=== PATIENT | female | born 1960 | race Caucasian/White ===

== ENCOUNTER 2023-08-06 11:44 | Inpatient (IN) | payer MEDICARE, OTHER, SELFPAY ==
[2023-08-06] VITALS (12 sets, daily range): BP systolic 91–141; BP diastolic 32–90; BMI 44.9
--- NOTE | 2023-08-06 10:54 | W.PN.CARDCBS ---
Today's Communication / Plan
-
[facility] today
echo
Impression / Plan
-
This is the H&P summary.
Full H&P scanned into chart.
PCP: Juliana Alonso NP
CDY: Malik Cardenas,
HPI: This is a 62 y/o white female, PMH sig for CAD, NSTEMI 02/2021 with complex kissing balloons/ALFREDO x2 from distal LM into LAD and LCx with Impella support. At the time, she had residual 45% prox RCA stenosis, iFR negative and medically managed.
Other history includes HTN, HLD, Asthma/COPD, ALFA/CPAP non compliant, prior DVT, Lupus, RA, Morbid obesity, Anglican.
Presented to [facility] ER with acute onset 10/10 chest pressure radiating to back, associated w/nausea. EMS was called and EKG had significant abnormalities that resolved when chest pain improved. HS troponin 115, CK 87, MB 8.8 and rising. She is on
chronic aspirin and brilinta, and got doses of each this morning.
Transferred for [facility] today.
Echo 01/04/23- nml LVSF, EF 59%, mild CLVH, mild MR, mild , PASP 25 (no sig change from Echo in 2020)
IMPRESSION:
NSTEMI
CAD w/remote FL (2009- no cath)
FL w/LM-LAD/LCx Kissing balloon/ALFREDO x2 w/Impella support (02/07/2021)
Residual CAD in RCA- medically managed
Mild Aortic Stenosis
HTN
HLD
Steroid induced DM
Asthma/COPD
ALFA/CPAP non compliant
Prior DVT
SLE/RA, steroid dependent
R abdominal mass (possibly from retained surgical sponge during R THR), on chronic antibiotics
Buttock abscess w/wound debridement/reconstruction (2012)
R THR w/revisions x3
L THR
Morbid Obesity
Anglican
PLAN:
CAD/NSTEMI
LHC today
currently taking DAPT w/asa, brilinta- last dose this morning
intol BB d/t chronic severe asthma- continue diltiazem 120/d
pt is not surgical candidate d/t Anglican kim
trend troponin/CK to peak
repeat echo
cardiac rehab
followup w/ Dr. Cardenas
HLD- check lipid profile
continue atorvastatin 80/daily
HTN- monitor trends on current meds
DM- steroid induced per pt
check HgbA1C, weekly trulicity
SLE/RA- continue daily prednisone
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
Subjective
Date of Service: August 06, 2023
Physical Exam
Physical Exam
VS:140/74- 86 NSR- 16- 98% RA
AAOx3, MAEE 5/5
RRR S1 S2 no murmurs, distant HS
CTA bilat, decreased throughout
soft obese abd, + bs
bilat extremities w/palpable distal pulses, trace edema
poor adia's right radial
[2023-08-06] MEDS: NSS 313 ML IV (12:11)
[2023-08-06 13:27] LABS: ACT-LR - POC 216 Seconds (116-155)
[2023-08-06 13:45] LABS: ACT-LR - POC 205 Seconds (116-155)
[2023-08-06 13:53] LABS: ACT-LR - POC 240 Seconds (116-155)
[2023-08-06 13:56] LABS: Troponin I 0.429 ng/ml
[2023-08-06 14:06] LABS: ACT-LR - POC 221 Seconds (116-155)
--- NOTE | 2023-08-06 14:17 | ITS.CL.CATH ---
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
Cardiac Catheterization
Procedure Report:
LEFT HEART CATHETERIZATION
Date of Procedure: August 06, 2023
Referring: [facility]
PROCEDURES:
1. Left heart catheterization with coronary and single-plane left ventriculography
2. Hemodynamic assessment of the left main-circumflex using a Empire Omni wire with the iFR serially measuring below the ischemic threshold.
INDICATION: This is a 62-year-old Bahai female with a very complex past medical history. She is diabetes, hypertensive, and has a history of systemic lupus erythematosus as well as rheumatoid arthritis. She has a prior history of a
DVT. She is on chronic prednisone for her rheumatologic issues and reportedly had been intolerant to steroid sparing therapies including etanercept, infliximab, and hydroxychloroquine. She is on chronic antibiotic suppressive therapy with
cephalexin for possible infected hip joint; although the details of this are quite unclear. She underwent coronary angiography on 02/04/2021 in the setting of an acute coronary syndrome and was found to have critical distal left main stenosis,
ostial LAD stenosis, and ostial circumflex stenosis as well as a 50-55% stenosis in the proximal RCA with a borderline iFR measuring 0.91. She was seen and evaluated by CT surgery and was not felt to be an operative candidate given the multitude of
medical issues. She returned to the catheterization laboratory on 02/07/2021 for an Impella assisted coronary intervention and double barrel stenting of the distal LM-LAD and distal LM-LCx with 3.0x18 mm Xience stents in each vessel. She has been
maintained on dual antiplatelet therapy since that time. She states that her breathing improved and she had been feeling well until last evening. She had been watching the [employer] and suddenly became nauseated and went to the bathroom. She
began vomiting and then developed chest tightness asking her son to call 911. She was comfortable by the time she reached [facility]. Her troponin was very mildly elevated 0.115 ng/mL and is now referred for coronary angiography.
ACCESS: Poor right radial pulse and left radial pulse. The right ulnar artery appears to be a large-caliber vessel and was utilized for access using ultrasound guidance and placement of a 6 Czech sheath
HEMODYNAMICS : (mmHg)
AO (s/d) : 165/75
LV (s/d) : 173/14
LVEDP : 23
AORTIC VALVE:
Mean pullback gradient: 14 mmHg
CORONARY FINDINGS
DOMINANCE: Right
LEFT MAIN: Ventricularization with engagement of the left main. 50% distal left main stenosis in cranial views not well-appreciated in caudal views
LEFT ANTERIOR DESCENDING: The LAD arises normally from the left main and runs in the anterior interventricular groove. The LAD arises normally from the left main. There is a stent from the distal left main to the proximal LAD with JAPANESE caudal
images suggestive of a 50-60% ostial stenosis.
CIRCUMFLEX: There is a stent from the distal left main extending to the proximal circumflex. The iFR with an Omni wire positioned in the mid circumflex serially measured as well below the ischemic threshold at 0.80, 0.82, and 0.82 with the guide
catheter disengaged from the left main ostia. The Omni wire was withdrawn to the ostium of the left main where the Pd/Pa completely normalized measuring 1.0 confirming no baseline drift and suggesting significant left main atherosclerotic disease
RIGHT CORONARY ARTERY: The right coronary artery is a moderate caliber dominant vessel with a 40-50% proximal stenosis. The remainder of the RCA has minor irregularities. The PDA has only minor irregularities with no focal obstructive stenosis.
VENTRICULOGRAPHY: Left ventriculography was performed in an JAY projection. The digital single-plane left ventricular ejection fraction is visually estimated greater than 75% with a hyperdynamic left ventricle. Heavy mitral annular calcification
is appreciated
HEMODYNAMIC ASSESSMENT OF THE LEFT MAIN-CIRCUMFLEX WITH A VOLCANO OMNI WIRE: Intravenous heparin was administered and the ACT was monitored throughout the procedure. A 5 Czech JL 3.5 guide catheter was advanced to the proximal ascending thoracic
aorta. A Empire Omni wire was advanced to the guide catheter tip and normalized to the guide catheter pressure. The Omni wire was then retracted to the guide catheter in the guide catheter engaged the origin of the left main. The Omni wire was
advanced to the mid circumflex and the guide catheter was disengaged from the left main origin. The iFR serially measured below the ischemic threshold at 0.80, 0.82, and 0.82. The Omni wire was slowly withdrawn to the left main with a mild step up
noted in the mid left main and complete normalization to the guide catheter pressure noted at the ostium of the left main where the Pd/Pa measured 1.0 while the guide was disengaged from the left main origin. I briefly attempted to pass the Omni
wire to the LAD but could not pass the OMNI wire
RADIATION SUMMARY: Fluoro Time (min): 11.0, Dose (mGy): 806.4, DAP (Gy.cm2) : 55.9
Closure Device: TR band
CONCLUSIONS
1. There is pressure dampening upon engagement of a 6 Czech diagnostic JL guide. Some views suggest a hazy plaque in the superior aspect of the left main as well as distal left main tapering. The exact nature of this was difficult to assess
given the double barrel distal left main stenosis extending to the origin of the circumflex and LAD. There is no reasonable option for left main ultrasound. However, the iFR in the mid circumflex is clearly in the ischemic range measuring 0.80,
0.82, 0.82 with a set up / normalization at the ostium of the left main
RECOMMENDATIONS
1. There are clearly no good percutaneous treatment options given existing double barrel LM-LAD and LM-LCx stents.
2. We will consult CT surgery
3. Trend troponin
Copy to: Dr. Malik Cardenas
--- NOTE | 2023-08-06 15:08 | PTCARENOTE ---
Rec'd pt this shift awake and alert post cath. Pt with Rt ulner external pressure device in place with 15ml air. Pulse ox 98% on hand. hand warm but pt c/o hand feeling numb. 3ml air let out, pt states a little better. site intact, no bleeding or
hematoma noted. NSR on monitor, RA, lungs clear. VS done as per protocol. See worklist for VS/I and O and assessments.
--- NOTE | 2023-08-06 15:29 | CONSULT.CT ---
Addendum entered and electronically signed by Brad Kaplan MD 08/06/23 18:05:
I saw and examined the patient.
The PA's note was reviewed and I agree with the note.
Comment:
It was my pleasure to evaluate Mrs. Elayne Rodriguez. She is a very pleasant 62-year-old woman with a VERY complex medical history including morbid obesity (BMI 42.7), diabetes, SLE, RA, chronic steroid use, hypertension, DVT, osteoarthritis status
post right hip replacement x 3 and left hip replacement x 1 with questionable unresected right hip mass/infection not amenable to resection prompting chronic antibiotic therapy, hyperlipidemia, asthma/COPD, and ALFA w/ CPAP noncompliance.
She was initially evaluated after presenting with an ACS back in January 2021 and deemed not to be an operative candidate at that time. She was taken to the cardiac catheterization laboratory on 02/07/2021 and underwent Impella assisted coronary
intervention with double barrel stenting of her distal left main into LAD and left main into left circumflex with a 3.0 x 18 mm Xience stent in each vessel. She has been maintained on DAPT since that time and had been doing relatively well.
On 08/05/2023, she was watching the [place] game at home and had an episode of acute shortness of breath, nausea/vomiting, and chest tightness. She was transported via EMS to [facility]. Her troponin was noted to be mildly elevated. She was referred for
cardiac catheterization. She was transferred to , and on 08/06/2023 underwent repeat left heart catheterization.
This demonstrated 50 to 60% ostial stenosis within the distal left main to proximal LAD stent and IFR positive disease within the stent from the left main into the left circumflex (0.80, 0.82, 0.82). Her RCA had a 40 to 50% proximal stenosis, but
otherwise only minor luminal irregular irregularities. This was largely unchanged from her cath in 2020. Left ventriculography demonstrated a hyperdynamic left ventricle with an LVEF greater than 75% along with heavy mitral annular calcifications.
Echocardiography demonstrated an LVEF of 59% with mild concentric LVH, normal right ventricular size and function, mild aortic stenosis (mean gradient 8 mmHg), mild mitral regurgitation with mild MAC, and trace tricuspid regurgitation with PASP of
25 mmHg.
The patient is a Mandaen and refuses transfusion. She requested transfer to [facility] given the need for surgical revascularization and their bloodless surgery program. On questioning, although she was adamant that she
would not accept blood products, she was agreeable to autotransfusion/Cell Saver.
I spoke with my surgical colleague at [place], Dr. Matt Razo, who has graciously offered to assist in the care of this patient. Transfer arrangements are underway. She will require additional time for preoperative assessment/evaluations and
to allow for her DAPT therapy (Brilinta) to washout with potential operation next week. Arrangements are currently underway for transfer with a target transfer date of tomorrow 08/07/2023. This was discussed with the patient, and she is agreeable.
I also spoke with both her defence intelligence analyst (Dr. Malik Cardenas) and burnisher (Dr. Cecilio Palacios), both of whom are agreeable with planned transfer.
Please call with any questions or concerns.
Thank for the opportunity to participate in the care of this patient.
Brad Kaplan MD
[phone]
Original Note:
Consultation
-
Date/Time Consultation Requested: 08/06/23
Date/Time Consultation Performed: 08/06/23
Requesting Provider: Dr. Palacios
Performing Provider: Brice brothers
Reason for Consultation: Cabg eval. (plan for Cabg at bloodless surgery program)
Patient History
Physicians
Family Physician: Juliana Alonso NP
Outpatient Docent Coordinator: Dr Cardenas
History of Present Illness
Patient is a 62-year-old white female with a significant past medical history. She initially presented to [facility] last night after developing substernal chest pressure and palpitations after eating dinner. She developed nausea and
vomiting. She also became diaphoretic and vomited x 2. Patient reports the pain was similar to her previous MA. Patient presented to [facility] and upon arrival was pain-free. She ruled in for NSTEMI with serial enzymes studies.
She was transferred to [facility] on 08/06/2023 for left heart cath. Heart cath again showed multivessel coronary artery disease and cardiothoracic surgery was consulted. Surgical revascularization was recommended but patient would like to
be transferred to a bloodless surgical program. She is on chronic aspirin and Brilinta and received both this morning 08/06/2023.
Echo from 01/04/2023 showed ejection fraction of 59%. Study also showed mild MR, mild and PA pressure of 25.
Plan for transfer to bloodless surgery program [facility] for CABG.
Past Medical History
Past Medical History: Angina, CAD, JACKMAN, HTN, Hypercholesterolemia, NIDDM, MA, ALFA and SOB
Past Surgical History
Past Surgical History: Abdominal, Orthopedic, PCI/Stent and Other ()
Family History
Mother: Still Living
Father: Still Living
Family Medical History: CAD and Hypertension
Social History
Alcohol: None
Drug: None
Tobacco: Non-Smoker
Personal:
Living: With Family
Employment: Disabled
Covid Vaccination History:
Received COVID-vaccine and COVID booster
Allergies
Allergy/AdvReac Type Severity Reaction Status Date / Time
codeine Allergy Hives Verified 08/06/23 12:31
etanercept [From Enbrel] Allergy Hives Verified 08/06/23 12:31
hydroxychloroquine Allergy Hives Verified 08/06/23 12:31
[From Plaquenil]
infliximab [From Remicade] Allergy heart Verified 08/06/23 12:31
stopped
metformin Allergy Nausea / Verified 08/06/23 12:31
Vomiting
oxycodone HCl Allergy seizures Verified 02/02/21 11:15
[From OxyContin]
Penicillins Allergy Hives Verified 08/06/23 12:31
'gold shots' Allergy Hives Uncoded 08/06/23 12:31
Home Medications
Medication Instructions Recorded Confirmed Type
cholecalciferol (vitamin D3) 50 2,000 unit PO DAILY 12/21/16 08/06/23 History
mcg (2,000 unit) tablet
atorvastatin 40 mg tablet 40 mg PO QPM 02/02/21 08/06/23 History
cephalexin 500 mg capsule 500 mg PO BID 02/02/21 08/06/23 History
dapagliflozin propanediol 10 mg 10 mg PO DAILY 02/02/21 08/06/23 History
tablet (Farxiga)
glimepiride 2 mg tablet 2 mg PO DAILY 02/02/21 08/06/23 History
icosapent ethyl 1 gram capsule 2 gm PO BID 02/02/21 08/06/23 History
(Vascepa)
montelukast 10 mg tablet 10 mg PO QPM 02/02/21 08/06/23 History
acetaminophen 325 mg tablet 650 mg PO Q4HPRN PRN Moderate pain. 02/09/21 08/06/23 Rx
aspirin 81 mg chewable tablet 81 mg PO DAILY 02/09/21 08/06/23 Rx
diltiazem HCl 120 mg 120 mg PO DAILY #30 caps 02/09/21 08/06/23 Rx
capsule,extended release 24 hr
pantoprazole 40 mg tablet,delayed 40 mg PO DAILY #30 tabs 02/09/21 08/06/23 Rx
release
ticagrelor 90 mg tablet (Brilinta) 90 mg PO BID #60 tabs 02/09/21 08/06/23 Rx
dulaglutide 0.75 mg/0.5 mL 0.75 mg SC QWEEK 08/06/23 08/06/23 History
subcutaneous pen injector
(Trulicity)
ezetimibe 10 mg tablet (Zetia) 10 mg PO QPM 08/06/23 08/06/23 History
lisinopril 10 mg tablet 10 mg PO QPM 08/06/23 08/06/23 History
mycophenolate mofetil 500 mg tablet 1,500 mg PO BID 08/06/23 08/06/23 History
prednisone 10 mg tablet 10 mg PO DAILY 08/06/23 08/06/23 History
Review of Systems
-
History Source: Patient
General: Reports Weight Loss and Fatigue
HEENT: Reports No Symptoms
Respiratory: Reports SOB and JACKMAN
Cardiac: Reports Chest Pain, CAD, Palpitations, Nausea and Vomiting
Abdomen/GI: Reports Nausea and Vomiting
: Reports Other (Kidney stones, history of UTI)
Musculoskeletal: Reports Joint Pain
Skin: Reports No Symptoms
Neurological: Reports Headaches (Occasional migraines)
Vascular: Reports Claudication (Uses wheeled walker)
Physical Exam
Vital Signs
Temp route: Oral 08/06/23 11:54
Pulse 86 08/06/23 15:00
Rhythm: Normal sinus rhythm 08/06/23 15:11
Resp Rate 18 08/06/23 14:41
Blood pressure 98/61 08/06/23 15:00
Blood pressure extremity used: Right upper arm 08/06/23 11:54
Position: Lying 08/06/23 14:41
MAP (cuff-Dc Monitor) 68 08/06/23 15:00
SaO2 98 08/06/23 15:00
Oxygen Mode of Delivery Room air 08/06/23 14:42
Can the patient verbally communicate their pain? Yes 08/06/23 15:11
Pain scale ratin 08/06/23 15:11
Actual Weight 229 lb 11.547 oz 08/06/23 11:52
Body Mass Index (BMI) 0.0 08/06/23 12:14
Labs
Troponin I 0.429 ng/ml H* 08/06/23 13:14
Exam
General: Well Developed, Well Nourished, No Apparent Distress and Comfortable
HEENT: Normocephalic, Anicteric and Atraumatic
Neck: Trachea Midline
Respiratory: Clear
Cardiac: Regular Rhythm
GI: Soft, Non Tender, Non Distended and Normal Bowel Sounds
Rectal: Deferred by Provider
Skin: Warm and Dry
Neuro: Awake, Alert, Oriented and AO x 3
Extremities: Pulses (Distal pulses intact bilaterally, dorsalis pedis pulse +2 bilaterally, feet cool dry, no open sores or ulcerations on feet,)
Lymph: No Lymphadenopathy
Psych: Calm
Assessment / Plan
-
Assessment:
NSTEMI
CAD with remote MA 2009
MA with left main stenting with Impella support 02-07-2021
Mild aortic stenosis
Hyperlipidemia
Hypertension
Steroid-induced diabetes mellitus
Asthma
ALFA/CPAP noncompliant
History of DVT provoked after hip surgery
Chronic immunosuppression for rheumatoid arthritis and lupus with prednisone and CellCept since she was a teenager
Nephrolithiasis
History of buttock abscess on chronic antibiotics history of wound debridement and reconstruction 2012
Right total hip replacement with revisions x 3
Left total hip replacement
Morbid obesity
Mandaen
Moderate persistent asthma with history of pneumonia, history of asthmatic bronchitis requiring intubation in 2012 and multiple hospitalization for asthma exacerbations
Chronic iron deficiency anemia
Severe fatty liver disease
Migraines
History of MRSA sepsis
Osteoarthritis/degenerative joint disease status post multiple hip replacements
Plan:
Preoperative studies will be ordered
All studies to be reviewed by attending cardiothoracic surgeons and transfer will be arranged to a bloodless surgery program.
[2023-08-06] MEDS: TYLENOL 650 MG PO (15:37)
[2023-08-06 15:52] LABS: Glucose - Point of Care 102 mg/dl (70-99)
--- NOTE | 2023-08-06 16:41 | PTCARENOTE ---
pt denies CP, denies sob. labs sent. Pt OOB up in chair for dinner, tolerated well.
[2023-08-06 16:42] LABS: Hematocrit 39.5 % (37.0-47.0); Hemoglobin 12.5 g/dL (12.0-16.0); Mean Corp Hgb Conc. 31.6 g/dL (33.0-37.0); Mean Corpuscular Hgb 27.1 pg (27.0-31.0); Mean Corpuscular Volume 85.7 fL (81.0-99.0); Mean Platelet Volume 10.4 fL (7.4-10.4); Platelet Count 302 10^3/uL (130-400); Red Blood Cell Count 4.61 10^6/uL (4.20-5.40); Red Cell Dist. Width 16.3 % (11.5-14.5); White Blood Cell Count 14.3 10^3/uL (4.8-10.8)
--- NOTE | 2023-08-06 16:52 | CM ---
Chart reviewed. Patient is independent of ADLS, lives with her son in a [address], [address], ambulates with a rollator. Patient currently with no discharge needs. CM to follow
[2023-08-06 17:18] LABS: Total CK 66 U/L (30-135)
[2023-08-06 17:39] LABS: CKMB 2.9 ng/ml (0.0-2.4)
[2023-08-06] MEDS: ZESTRIL 10 MG PO (17:47)
[2023-08-06] MEDS: LIPITOR 40 MG PO (17:47)
[2023-08-06] MEDS: SINGULAIR 10 MG PO (17:48)
[2023-08-06] MEDS: ZETIA 10 MG PO (17:48)
[2023-08-06] MEDS: VENTOLIN NEBULES 2.5 MG INH (18:19)
--- NOTE | 2023-08-06 18:27 | PTCARENOTE ---
Pt sent for CT scan. at 1800, TR band removed. dsg intact.
[2023-08-06] MEDS: KEFLEX 500 MG PO (20:11)
[2023-08-06 22:03] LABS: Glucose - Point of Care 82 mg/dl (70-99)
--- NOTE | 2023-08-07 02:05 | PTCARENOTE ---
Right ulnar dressing intact w/ palpable pulses. Patient educated about activity restrictions, and verbalized understanding. Tele remains SR, VSS, and sating 93-98% RA. Denies any chest pain. Aware of POC, call hoffmann within reach.
[2023-08-07 04:47] VITALS: BP 148/65
[2023-08-07 05:10] LABS: Hematocrit 35.5 % (37.0-47.0); Hemoglobin 11.5 g/dL (12.0-16.0); Mean Corp Hgb Conc. 32.4 g/dL (33.0-37.0); Mean Corpuscular Volume 83.3 fL (81.0-99.0); Mean Platelet Volume 10.1 fL (7.4-10.4); Platelet Count 274 10^3/uL (130-400); Red Blood Cell Count 4.26 10^6/uL (4.20-5.40); Red Cell Dist. Width 16.2 % (11.5-14.5); White Blood Cell Count 11.4 10^3/uL (4.8-10.8)
[2023-08-07 05:27] LABS: Blood Urea Nitrogen 15 mg/dl (7-17); Calcium 8.7 mg/dl (8.4-10.2); Carbon Dioxide 27 mmol/L (22-30); Chloride 103 mmol/L (98-107); Estimated Creatinine Clearance 84 ml/min; Glucose 87 mg/dl (70-99); HDL Cholesterol 33 mg/dl; LDL Cholesterol, Calculated 36 mg/dl; Potassium 4.1 mmol/L (3.5-5.1); Sodium 138 mmol/L (135-145); Total Cholesterol 116 mg/dl (50-199); Triglyceride 237 mg/dl (10-149); Very Low Density Lipoprotein 47 mg/dl (0-30); eGFR > 60.00
[2023-08-07 05:45] LABS: Troponin I 0.242 ng/ml
[2023-08-07 05:59] LABS: Total CK 55 U/L (30-135)
[2023-08-07 07:24] VITALS: BP 117/62
[2023-08-07 07:32] LABS: Glucose - Point of Care 85 mg/dl (70-99)
[2023-08-07 08:05] VITALS: BMI 42.5
[2023-08-07] MEDS: FARXIGA 10 MG PO (09:24)
[2023-08-07] MEDS: LOW STRENGTH ASPIRIN 81 MG PO (09:24)
[2023-08-07] MEDS: AMARYL 2 MG PO (09:24)
[2023-08-07] MEDS: KEFLEX 500 MG PO (09:25)
[2023-08-07] MEDS: CARDIZEM CD 120 MG PO (09:25)
[2023-08-07] MEDS: PROTONIX 40 MG PO (09:25)
[2023-08-07] MEDS: DELTASONE 10 MG PO (09:25)
--- NOTE | 2023-08-07 09:50 | W.PN.CARDCBS ---
Addendum entered and electronically signed by Caroline Merlos MD 08/07/23 12:08:
I saw and examined the patient.
The Playroom Attendant's note was reviewed and I agree with the note.
Comment: Overall patient is doing well and does not offer any complaints. She is walked the halls and does not have any recurrent chest discomfort or shortness of breath.
Vital signs are stable. Exam notable for a morbidly obese female in no acute distress, ANO x 3, regular rate, normal S1 and S2, no evidence of hematoma or bruit at recent cath access site, lungs are clear to auscultation bilaterally, abdomen is
obese but otherwise soft, nontender, nondistended with active bowel sounds, warm extremities without significant edema.
Lab work reviewed with mild hemoglobin drop, less than 2 g.
Plan:
1. Awaiting Brilinta washout and awaiting bed availability at [facility] for transfer for CABG per patient's request.
2. Continue management of current acute coronary syndrome. Encourage patient to let us know if she has any recurrent cardiac symptoms.
Caroline Merlos MD, [facility], [facility]
Original Note:
Today's Communication / Plan
-
Recheck H&H at noon
Transfer to [facility] when bed available
Pain free
Impression / Plan
-
PCP: Juliana Alonso NP
CDY: Malik Cardenas DO
IMPRESSION:
Transfer from [facility] for NSTEMI 08/06/23
CAD
remote OH without cath 2009
critical left main and ostial LAD/circumflex disease s/p successful complex two ALFREDO placed to the distal left main into the LAD and circumflex with Impella support 02/07/21
cath with hazy plaque in the superior aspect LM and distal LM tapering (exact nature of this was difficult to assess given the double barrel distal left main stenosis extending to the origin of the circumflex and LAD), iFR in mid Circ in the
ischemic range measuring 0.80, 0.82, 0.82 with a set up / normalization at the ostium of the left main 08/06/23
Mild Aortic Stenosis, mean gradient by cath 14 mmHg 08/06/23
HTN
HLD
Steroid induced DM
Asthma/COPD
ALFA/CPAP non compliant
Prior DVT
SLE/RA, steroid dependent
R THR w/revisions x3
L THR
Morbid Obesity
Shinto
Echo 01/04/23: nml LVEF, EF 59%, mild CLVH, mild MR, mild , PASP 25 (no sig change from Echo in 2020)
PLAN:
-Initial Troponin at upon transfer from [facility] was 0.429 on 08/06/23 and then 0.242 on 08/07/23. No chest pain.
-Remains on usual outpatient dose of aspirin 81 mg daily. Last dose of Brilinta 90 mg BID was 08/06/23 AM.
-Hgb was 12.5 on admission and 11.5 on 08/07/23. Check H&H at noon. HD stable.
-Echo ordered and then cancelled with plan for transfer to [facility], but EF was 75% by v-gram 08/06/23
-Patient with h/o HTN and her usual doses of Cardizem CD 120 mg daily and lisinopril 10 mg daily have been continued.
-LDL 36 and outpatient doses of atorvastatin 40 mg daily and Zetia 10 mg daily have been continued. Patient also takes Vascepa 2 gram BID
-HgbA1c pending. Outpatient doses of Farxiga 10 mg daily and glimepiride 2 mg daily have been continued. Patient was also taking Trulicity 0.75 mg SQ weekly as an outpatient.
-Patient with a h/o SLE/RA and takes prednisone 10 mg daily and CellCept 1500 mg BID which have been continued
HPI: This is a 62 y/o white female, PMH sig for CAD, NSTEMI 02/2021 with complex kissing balloons/ALFREDO x2 from distal LM into LAD and LCx with Impella support. At the time, she had residual 45% prox RCA stenosis, iFR negative and medically managed.
Other history includes HTN, HLD, Asthma/COPD, ALFA/CPAP non compliant, prior DVT, Lupus, RA, Morbid obesity, Shinto.
Presented to [facility] ER with acute onset 10/10 chest pressure radiating to back, associated w/nausea. EMS was called and EKG had significant abnormalities that resolved when chest pain improved. HS troponin 115, CK 87, MB 8.8 and rising. She is on
chronic aspirin and Brilinta, and got doses of each this morning.
Transferred for [facility] today.
Progress Note - Director Of Vital Statistics
Subjective
Date of Service: August 07, 2023
She feels well, no chest pain
Objective
Labs:
08/07/23 04:55
08/07/23 04:55
Labs
Hgb 11.5 g/dL (12.0-16.0) L 08/07/23 04:55
Hct 35.5 % (37.0-47.0) L 08/07/23 04:55
Plt Count 274 10^3/uL (130-400) 08/07/23 04:55
Sodium 138 mmol/L (135-145) 08/07/23 04:55
Potassium 4.1 mmol/L (3.5-5.1) 08/07/23 04:55
BUN 15 mg/dl (7-17) 08/07/23 04:55
Creatinine 0.8 mg/dL (0.6-1.0) 08/07/23 04:55
Glucose 87 mg/dl (70-99) 08/07/23 04:55
Troponins
08/06/23 08/07/23
13:14 04:55
Troponin I 0.429 H* 0.242 H*
Vital Signs and I&O:
Vital Signs
Temp Pulse Resp BP Pulse Ox
98.1 F 85 18 117/62 95
08/07/23 08:04 08/07/23 09:25 08/07/23 08:04 08/07/23 09:25 08/07/23 08:04
Vital Signs
Temp Pulse Resp BP Pulse Ox
98.1 F 85 18 117/62 95
08/07/23 08:04 08/07/23 09:25 08/07/23 08:04 08/07/23 09:25 08/07/23 08:04
Intake & Output
08/05/23 08/06/23 08/07/23 08/08/23
06:59 06:59 06:59 06:59
Intake Total 740 / 740
Balance 740 / 740
Physical Exam
Physical Exam
GEN: NAD. AAO x3
HEENT: EOMI, MMM
LUNGS: CTA B/L, no wheezes or rales B/L
CV: Reg, S1/S2, 1/6 syst LSB
ABD: soft, BS+, NT, ND
EXT: Right ulnar artery with minimal ecchymosis. No cyanosis, clubbing, lesions or edema B/L
NEURO: Gross non-focal
SKIN: Warm, pink, dry. No rash.
--- NOTE | 2023-08-07 10:44 | CM ---
Chart reviewed. Patient is waiting for a bed at [facility]. Patient is independent of ADLS, lives with her son in a [address], [address], ambulates with a rollator. Waiting on bed at [facility]. CM to follow
[2023-08-07 12:29] LABS: Glucose - Point of Care 88 mg/dl (70-99)
[2023-08-07 12:58] VITALS: BP 127/74
[2023-08-07 13:59] LABS: Hematocrit 38.8 % (37.0-47.0); Hemoglobin 12.3 g/dL (12.0-16.0)
[2023-08-07 16:18] LABS: Glucose - Point of Care 129 mg/dl (70-99)
[2023-08-07 16:48] VITALS: BP 129/61
--- NOTE | 2023-08-07 17:08 | W.PN.UPDATE ---
Update Note
Progress Note Update
Patient has just been given a bed at [facility]. Into patient's room to update her on room and to get informed consent for transfer. Transfer this evening.
--- NOTE | 2023-08-07 18:09 | TRANSFER ---
Report given to LOVE Koroma at [facility]. Pt to be transferred at 1930, via BLS transport. Pt to go to room 523. Report called to [phone]. Will monitor.
[2023-08-07 19:07] VITALS: BP 135/65
[2023-08-07] MEDS: ZESTRIL 10 MG PO (19:09)
[2023-08-07] MEDS: ZETIA 10 MG PO (19:09)
[2023-08-07] MEDS: SINGULAIR 10 MG PO (19:09)
[2023-08-07] MEDS: LIPITOR 40 MG PO (19:09)
[2023-08-07 20:42] VITALS: BP 119/65
--- NOTE | 2023-08-07 21:26 | PTCARENOTE ---
ALS at bedside, and will transport patient to [facility]. All personal belongings sent w/ patient.
== END 2023-08-07 21:30 | disposition short-term general hospital (02) | DRG 281 ==
LOC: IVU 11:44
PROVIDERS: Clinical Nurse Specialist Acute Care; Nurse Practitioner; Physician Assistant Medical; ADMITTING PHYSICIAN Internal Medicine Interventional Cardiology; CONSULT PHYSICIAN Thoracic Surgery (Cardiothoracic Vascular Surgery)
PROC: 4A023N7 Measurement of Cardiac Sampling and Pressure, Left Heart, Percutaneous Approach (ICD-10-PCS; 2023-08-06)
PROC: B2111ZZ Fluoroscopy of Multiple Coronary Arteries using Low Osmolar Contrast (ICD-10-PCS; 2023-08-06)
PROC: B2151ZZ Fluoroscopy of Left Heart using Low Osmolar Contrast (ICD-10-PCS; 2023-08-06)
DX: I21.4 Non-ST elevation (NSTEMI) myocardial infarction (principal); Z68.41 Body mass index [BMI] 40.0-44.9, adult; E66.01 Morbid (severe) obesity due to excess calories; I10 Essential (primary) hypertension; I25.119 Atherosclerotic heart disease of native coronary artery with unspecified angina pectoris; I25.2 Old myocardial infarction; E09.9 Drug or chemical induced diabetes mellitus without complications; E78.00 Pure hypercholesterolemia, unspecified; M32.9 Systemic lupus erythematosus, unspecified; M06.9 Rheumatoid arthritis, unspecified
CPT/HCPCS: 71250; 80048; 80061; 82550; 82553; 82962; 83036; 84484; 85014; 85018; 85027; 85347; 93005; 93458; 93571; 94060; 94640; C1769; C1894; Q9967

== ENCOUNTER → 2023-11-30 12:15 | Outpatient (REF) | payer MEDICARE, OTHER, SELFPAY | LOC: RAD 12:15 | PROVIDERS: ATTENDING PHYSICIAN Nurse Practitioner Primary Care | DX: M32.10 Systemic lupus erythematosus, organ or system involvement unspecified (principal); Z79.52 Long term (current) use of systemic steroids; S69.92XA Unspecified injury of left wrist, hand and finger(s), initial encounter | CPT/HCPCS: 73140 ==

== ENCOUNTER → 2024-02-04 15:49 | Outpatient (REF) | payer MEDICARE, OTHER, SELFPAY | LOC: RAD 15:49 | PROVIDERS: ATTENDING PHYSICIAN Nurse Practitioner Family; FAMILY PHYSICIAN Nurse Practitioner Primary Care | DX: R05.1 Acute cough (principal); J06.9 Acute upper respiratory infection, unspecified | CPT/HCPCS: 71046 ==

== ENCOUNTER → 2024-04-15 10:25 | Outpatient (REF) | payer MEDICARE, OTHER, SELFPAY | LOC: HWRAD 10:25 | PROVIDERS: ATTENDING PHYSICIAN Nurse Practitioner Family; FAMILY PHYSICIAN Nurse Practitioner Primary Care | DX: R05.3 Chronic cough (principal) | CPT/HCPCS: 71046 ==

== ENCOUNTER 2024-07-02 17:20 | Inpatient (IN) | payer MEDICARE, OTHER, SELFPAY ==
[2024-07-02] VITALS (27 sets, daily range): BP systolic 62–155; BP diastolic 25–125; BMI 44.1
[2024-07-02] MEDS: ZOFRAN 4 MG PO (11:49)
[2024-07-02 12:17] LABS: ALT (SGPT) 16 U/L (0-35); AST (SGOT) 21 U/L (14-36); Albumin 3.7 g/dl (3.5-5.0); Alkaline Phosphatase 74 U/L (38-126); Blood Urea Nitrogen 21 mg/dl (7-17); Carbon Dioxide 25 mmol/L (22-30); Chloride 96 mmol/L (98-107); Glucose 198 mg/dl (70-99); Potassium 4.9 mmol/L (3.5-5.1); Sodium 133 mmol/L (135-145); Total Bilirubin 3.2 mg/dl (0.2-1.3); eGFR 33.91
[2024-07-02 12:23] LABS: % Basophils 0.4 % (0-2); % Immature Granulocytes 0.8 % (0-0.5); % Lymphocytes 8.9 % (20.5-51.1); % Monocytes 8.8 % (1.7-9.3); % Neutrophils 81.1 % (42.2-75.2); Absolute Basophils 0.1 10^3/uL (0-0.2); Absolute Immature Granulocytes 0.2 10^3/uL (0-0.05); Absolute Neutrophils 18.2 10^3/uL (1.4-6.5); Hematocrit 39.4 % (37.0-47.0); Hemoglobin 12.2 g/dL (12.0-16.0); Mean Corpuscular Hgb 26.7 pg (27.0-31.0); Mean Corpuscular Volume 86.2 fL (81.0-99.0); Mean Platelet Volume 10.5 fL (7.4-10.4); Nucleated Red Blood Cells % 0 %; Platelet Count 296 10^3/uL (130-400); Red Blood Cell Count 4.57 10^6/uL (4.20-5.40); Red Cell Dist. Width 17.2 % (11.5-14.5); White Blood Cell Count 22.4 10^3/uL (4.8-10.8)
[2024-07-02 12:41] LABS: Troponin I 0.146 ng/ml
--- NOTE | 2024-07-02 13:14 | ED.GENMED ---
History of Present Illness
General
Chief Complaint: Abdominal Symptoms
Source: patient and family (Son and mother)
Time Seen by Provider: 07/02/24 13:07
History of Present Illness
History of Present Illness:
This patient is a 63-year-old female presents emergency department with stating she just has not felt well since last night. It began with pain 'on my side', and she points to the right mid to lower quadrant associated with wheezing. She then
noted vomiting and nonbloody diarrhea. She notes 'rattling' in her chest particular with a cough which is nonproductive. She denies chest pain or pressure and states that today symptoms are completely uncharacteristic of when she had a prior IA.
She does note mild dyspnea and chills. She denies sick contacts. She denies back pain, urinary symptoms, headache. She does have overall fatigue. Patient was noted to be mildly hypoxic here in nasal cannula was applied. Of note, patient had a
bypass earlier this year.
Past History
Past History
ED Past Medical History: Asthma, CAD, HTN, Other (Lupus and rheumatoid arthritis, DVT) and Other (Kidney stones, prior history of pneumonia)
ED Past Surgical History: and Orthopedic (R hip replaced x 3 L hip replaced x 1)
Social History
Tobacco: Non-smoker
Alcohol: Occasional
Drug: None
Living: with family (lives with son)
Employment: Disabled
Family History
Family History: Other (n/c)
Phy Exam
Physical Exam
Physical Exam:
GENERAL: Alert , appears uncomfortable, obese
EYE: pupils equal and reactive, no photophobia
NECK: Supple, no significant adenopathy.
ENT: o/p clr, mm slightly dry
CARDIAC: Regular rate and rhythm, tachycardic.
LUNGS: Equal breath sounds bilaterally, no acute respiratory distress, diffuse wheezing, no rales or rhonchi, no obvious cough
ABDOMEN: Soft, mild right lower quadrant tenderness, no r/g
NEUROLOGICAL: Alert and oriented, no focal neuro deficits
SKIN: Warm and dry, skin intact.
MUSCULOSKELETAL: No edema, well perfused.
PSYCH: Normal and appropriate interaction.
Course
Orders/Labs/Results
Orders:
Orders
07/02/24 11:32
Electrocardiogram (*1) Urgent
Reason for Study: Chest Pain
07/02/24 11:33
EKG- Treatment ONCE
07/02/24 11:47
Ondansetron HCl [Zofran] 4 mg .ROUTE .STK-MED ONE
07/02/24 11:49
Ondansetron HCl [Zofran] 4 mg PO NOW STA
07/02/24 11:50
Complete Blood Count/With Diff Urgent
Comprehensive Metabolic Panel Urgent
Magnesium Urgent
Phosphorus Urgent
Troponin I Urgent
07/02/24 13:18
CT Abd/Pel (IV only)-DH only Urgent
Comment:
Reason For Exam: RLQ PAIN, N/V/D
Ipratropium/Albuterol Sulfate [Duoneb] 3 ml INH R NOW STA
07/02/24 13:20
CR Chest - 2 Views Urgent
Comment:
Reason For Exam: HYPOXIA, WHEEZING
07/02/24 13:40
D-Dimer Urgent
Lactic Acid Urgent
Lipase Urgent
Urinalysis Reflex To Culture Urgent
Date Specimen was Collected: 07/02/24
Time Specimen was Collected: 13:37
Urine Microscopic Reflex Cult Urgent
Blood Culture Q30M
RAHAT Source: Blood/Venous
Specimen Description:
Blood Culture Q30M
RAHAT Source: Blood/Venous
Specimen Description:
07/02/24 15:34
Echo 2D MMode Color/Doppler Urgent
Reason for Study: pericardial effusion
07/02/24 15:57
Piperacillin/Tazo 4.5 Gram [Zosyn] 4.5 gram in 100 ml IV NOW
07/02/24 16:00
Norovirus by PCR Urgent
RAHAT Source: Feces/Stool
Specimen Description:
Date Specimen was Collected: 07/04/24
Time Specimen was Collected: 00:17
STOOL [C difficile Antigen & Toxins] Urgent
RAHAT Source: Feces/Stool
Specimen Description:
Date Specimen was Collected: 07/04/24
Time Specimen was Collected: 00:17
07/02/24 16:12
Influenza A+B Rapid Molecular Urgent
RAHAT Source: Nasal Swab
Specimen Description:
07/02/24 16:13
COVID-19 Antigen Urgent
Source: Nasal Swab
Stool Culture Urgent
RAHAT Source: Feces/Stool
Specimen Description:
Date Specimen was Collected: 07/04/24
Time Specimen was Collected: 00:18
07/02/24 16:32
0.9% Sodium Chloride 500 ml [Nss] 500 ml IV BOLUS
07/02/24 16:33
0.9% Sodium Chloride 1000 ml [Nss] 2,000 ml IV BOLUS
07/02/24 16:36
Vancomycin [Vancocin] 2,000 mg 0.9% Sodium Chloride 500 ml [Nss] 500 ml IV NOW
07/02/24 16:56
Hydrocortisone Sod Succinate [Solu-Cortef] 100 mg IV NOW STA
07/02/24 17:03
Senior Accountant Cytology Routine
Date Specimen was Collected: 07/02/24
Time Specimen was Collected: 17:06
Source: Pericardial Fluid
Clinical Impression: pericardial
07/02/24 17:06
Admit/Transfer Patient As Directed
Co-Sign Provider:
Level of Care: Inpatient admission
Assign to:: ICU
Physician / Group: Shilpa
Diagnosis: Septic Shock, Tamponade
Reason for Hospitalization: IVFs, IV steroids, Pericardiocentesis
Expected length of stay greater than two midnights?: Yes
ELOS- Estimated Length of Stay in days: 3
I certify the patient meets the requirements for IP care: Yes
PRN Pain Medication Management As Directed
May give lesser potent ordered pain med per pt: Yes
preference::
Protocol:: Medication orders for pain may be administered in a
manner that supports deferring to patient preference
when the pt is:
- Requesting an ordered lesser potent pain medication.
Least to most potent pain medications are defined
as: acetaminophen < NSAID < tramadol < opioids
(morphine, oxycodone, hydromorphone).
- Requesting a lesser dose of the same medication IF
ORDERED.
- Requesting a less intrusive route of administration
if both routes are prescribed by the provider (PO <
IV).
07/02/24 17:08
Code Status As Directed
Resuscitation Status: Full Code
Acid Fast Culture & Smear Routine
RAHAT Source: Pericardial Fluid
Specimen Description:
Date Specimen was Collected: 07/02/24
Time Specimen was Collected: 17:05
Body Fluid Cell Count Routine
What is the Body Fluid: pericard
Date Specimen was Collected: 07/02/24
Time Specimen was Collected: 17:05
Body Fluid Glucose Routine
Fluid Source: Other
Other Source: ashia
Date Specimen was Collected: 07/02/24
Time Specimen was Collected: 17:04
Body Fluid Hematocrit Routine
What is the Body Fluid: pericard
Date Specimen was Collected: 07/02/24
Time Specimen was Collected: 17:05
Body Fluid LDH Routine
Fluid Source: Other
Other Source: pericardial
Date Specimen was Collected: 07/02/24
Time Specimen was Collected: 17:04
Body Fluid Protein Routine
Fluid Source: Other
Other Source: periardial
Date Specimen was Collected: 07/02/24
Time Specimen was Collected: 17:04
Fluid Culture with Gram Stain Routine
RAHAT Source: Pericardial Fluid
Specimen Description:
Date Specimen was Collected: 07/02/24
Time Specimen was Collected: 17:05
Fungus Culture Routine
RAHAT Source: Pericardial Fluid
Specimen Description:
Date Specimen was Collected: 07/02/24
Time Specimen was Collected: 17:05
Fungus Smear Routine
RAHAT Source: Pericardial Fluid
Specimen Description:
Date Specimen was Collected: 07/02/24
Time Specimen was Collected: 17:04
07/02/24 17:30
Echo Follow-up Study Routine
Reason for Study: PERICARDIOCENTISIS
07/02/24 18:24
0.9% Sodium Chloride 1000 ml [Nss] 1,000 ml IV 80 mls/hr
Acetaminophen [Tylenol] 650 mg PO Q4HPRN PRN
Atorvastatin [Lipitor] 80 mg PO QPM
Dextrose 50%-Water [Dextrose 50% Syringe] 12.5 grams IV [id number] PRN
Glucagon [GlucaGen] 1 mg IM PRN PRN
Montelukast Sodium [Singulair] 10 mg PO QPM
Vancomycin HCl [Firvanq] 250 mg PO Q6
07/02/24 18:24
CARDIOLOGY CONSULT Routine
Consulting Provider: Casa Blanchard
Was physician already notified: Yes
INFECTIOUS DISEASE CONSULT Routine
Consulting Provider: Luis Pinedo
Was physician already notified: Yes
Commercial Credit Analyst Consult Routine
Consulting Provider: Emilia Bowen
Was physician already notified: Yes
Activity As Directed
Activity Level: Out of Bed- Chair
Bedside Glucose Monitoring As Directed
Frequency: AC&HS
Additional Instructions:: Change to q6h if pt on TPN, tube feeding or not eating
I&O [Intake/ Output] As Directed
Frequency: q12h
Vital Signs As Directed
Frequency: Per unit guidelines
Weight As Directed
Frequency: Daily
DX Deep Vein Thrombosis Video Routine
07/02/24 20:00
Mycophenolate Mofetil 1,000 mg PO BID
07/02/24 20:37
Troponin I Q6H
07/02/24 22:00
Gabapentin [Neurontin] 100 mg PO HS
07/03/24 00:00
Heparin 5,000 units SC Q8
Hydrocortisone Sod Succinate [Solu-Cortef] 50 mg IV Q8
07/03/24 02:50
Complete Blood Count/No Diff IN AM
Glycohemoglobin (HgbA1c) IN AM
Troponin I Q6H
07/03/24 08:00
Ezetimibe [Zetia] 10 mg PO DAILY
Pantoprazole [Protonix] 40 mg PO DAILY
07/03/24 20:00
Cephalexin Monohydrate [Keflex] 500 mg PO BID
Abnormal Lab Results
07/02/24 07/02/24
11:50 13:40
WBC 22.4 H 10^3/uL
(4.8-10.8)
MCH 26.7 L pg
(27.0-31.0)
MCHC 31.0 L g/dL
(33.0-37.0)
RDW 17.2 H %
(11.5-14.5)
MPV 10.5 H fL
(7.4-10.4)
Abs Immat Gran (auto) 0.2 H 10^3/uL
(0-0.05)
Absolute Neuts (auto) 18.2 H 10^3/uL
(1.4-6.5)
Absolute Monos (auto) 2.0 H 10^3/uL
(0.1-0.6)
Immature Gran % 0.8 H %
(0-0.5)
Neutrophils % 81.1 H %
(42.2-75.2)
Lymphocytes % 8.9 L %
(20.5-51.1)
D-Dimer 7.32 H ug/mlFEU
(0.00-0.50)
Sodium 133 L mmol/L
(135-145)
Chloride 96 L mmol/L
(98-107)
BUN 21 H mg/dl
(7-17)
Creatinine 1.7 H mg/dL
(0.6-1.0)
Glucose 198 H mg/dl
(70-99)
Lactic Acid 2.1 H mmol/L
(0.7-2.0)
Total Bilirubin 3.2 H mg/dl
(0.2-1.3)
Troponin I 0.146 H* ng/ml
Total Protein 6.0 L g/dl
(6.3-8.2)
Urine Ketones 1+ A
(Negative)
Urine Bilirubin 1+ A
(Negative)
Leukocyte Esterase Rfl Trace A
(Negative)
Urine Albumin (Reflex) 1+ A
(Neg - Trace)
07/02/24 11:50
07/02/24 11:50
Vital Signs
Initial and Last Documented VS:
Initial Vital Signs
Temp Pulse Resp BP Pulse Ox
98.5 F 109 20 110/67 95
07/02/24 11:38 07/02/24 11:38 07/02/24 11:38 07/02/24 11:38 07/02/24 11:38
Last Documented Vital Signs
Temp Pulse Resp BP Pulse Ox
97.9 F 70 24 138/68 98
07/04/24 08:00 07/04/24 09:10 07/03/24 16:00 07/04/24 09:10 07/04/24 04:28
*Critical Care Note
Total Time (30-74mins, 75-104mins- exclusive of procedures): 40
Update Note
Update Note:
Patient presents to the Emergency Department with ___wheezing nausea vomiting
Number and Complexity of Problems Addressed at the Encounter
� Chronic conditions affecting care:
� Acute Exacerbation and/or Progression of Chronic Illness:
� Differential Diagnosis includes: But not limited to cholecystitis, appendicitis, viral gastroenteritis, pneumonia, etc. etc.
Amount and/or Complexity of Data to be Reviewed and Analyzed
� I performed an independent evaluation of and my interpretation is:
EKG: Read by me, sinus tachycardia, no acute ischemia
CT: Dr Floyd she has a moderate sized pericardial effusion and likely pericarditis. The pericardium is enhancing and a little bit thick. She�s also got a collection along her right iliopsoas which may be a hematoma or might be
related to the right hip arthroplasty
Xrays: read by me, cm..dr floyd Small bilateral pleural effusions with adjacent atelectasis.
Cardiomegaly, likely related to a pericardial effusion seen on same-day CT abdomen pelvis.
Laboratory Studies:leukocytosis with L shift, lactic acid elevation, trop elevation (?demand).
Other:
� Review of other/old records reveals: Discharge summary/consults...pt seen Jul 2023 and tx'd to [facility] for CABG at her request.
� Clinical information was obtained by an independent historian:mother and son at bedside.
� Prescriptions/Medications Considered but not given:
� Further testing considered but not performed:
Risk of Complications and/or Morbidity or Mortality of Patient Management
� Social determinants of health affecting care:
� Discussion with other providers (PCP, Hospitalists, Consultants, etc):
� Escalation of care including admission/observation vs risk of discharge considered: Patient noted to have an elevated troponin here. She does not currently have chest pain or an ECG that would suggest ACS. May be demand
ischemia.
3:28 PM patient having mild hypotension, improved with IV fluids here. Upon my review I suspected a pericardial effusion and confirmed with radiology who states she has a moderate sized pericardial effusion and likely pericarditis. The pericardium
is enhancing and a little bit thick. She�s also got a collection along her right iliopsoas which may be a hematoma or might be related to the right hip arthroplasty. Pt is obviously septic, ?related to effusion vs another source, such as collection
at R iliopsoas. Text/consult to cards (Dr Blanchard) who ordered stat echo and will see pt although does suspect fat pad over actual effuison, also confirms EF wnl and recommends IVf for hypotension, will d/w Hospitalist, begin abx.
Of note, family and pt state that she has a chronic 'mass' near R hip area, on chronic abx (cefadroxil), prior hospitalizations unable to successfully bx. WIll need to compare to today's film.
RN instructed to restart IVF and we wll reassess bp. Dr Strong aware re:admission.
ED Attending Note
-
Portions of this chart may have been created with voice recognition software.� Occasional wrong word or��sound alike� substitutions may have occurred due to the inherent limitations of voice recognition software.
Discharge Plan
Departure
Patient Disposition: Admit
Date of Disposition: 07/02/24
Time of Disposition: 15:52
Admit to doctor: vivian
Presentation/result/management discussed w/ accepting MD/DO: Hospitalist
Condition: Fair
Discharge Problem:
SIRS (systemic inflammatory response syndrome)
Interventions
Interventions:
*Risk Screen - Suicide Last Done: 07/02/24 12:56
*General Assessment Last Done: 07/02/24 12:56
*Neglect/Abuse Screening Last Done: 07/02/24 12:56
ED- Fall Risk Assessment Last Done: 07/02/24 13:00
*ED COVID-19 Vaccine History Last Done: 07/02/24 12:56
*Nursing Disposition Last Done: 07/02/24 17:28
FM-Nrodfw-Rwhxtpadbx Assessment Last Done: 07/02/24 13:00
ED- Cardiac Assessment Last Done: 07/02/24 13:00
ED- Pulmonary Assessment Last Done: 07/02/24 13:00
Discharge Date and Time
Discharge Date/Time: 07/02/24 17:15
[2024-07-02] MEDS: DUONEB 3 ML INH (13:49)
[2024-07-02 14:19] LABS: Lactic Acid 2.1 mmol/L (0.7-2.0); Urine Albumin 1+ (Neg - Trace); Urine Bilirubin 1+ (Negative); Urine Character Clear (Clear); Urine Color Yellow; Urine Glucose Negative (Negative); Urine Ketone 1+ (Negative); Urine Leukocyte Trace (Negative); Urine Nitrite Negative (Negative); Urine Occult Blood Negative (Negative); Urine Urobilinogen Negative (Neg - 1+)
[2024-07-02 14:21] LABS: Lipase 46 U/L (23-300)
[2024-07-02 14:28] LABS: Urine Red Blood Cell 0-2 /HPF (0-2); Urine White Cell 0-2 /HPF (0-5)
[2024-07-02 14:32] LABS: D-Dimer 7.32 ug/mlFEU (0.00-0.50)
--- NOTE | 2024-07-02 15:57 | HPS.HSE ---
Family Physician
-
Family Physician: Frantz Mckeon
Chief Complaint
-
Vomiting and Diarrhea
History of Present Illness
Patient is a 63 y/o female past medical history of CAD s/p CABG in August, hypertension, diabetes, SLE/RA on immunosuppressant and chronic steroids, and chronic antibiotic use for right hip mass/infection who presents with vomiting and diarrhea.
Patient reports overall feeling unwell. She states she developed vomiting and diarrhea last night. She also reports cough and shortness of breath. Upon arrival to the emergency department she was found to be hypotensive with significant
leukocytosis. Additional work-up revealed pericardial effusion with tamponade physiology. Cardiology evaluated patient emergently in the ED and planning for pericardiocentesis this evening. Hospitalist group was asked to evaluate patient for
admission to the hospital.
Medical History
Past Medical History
Past Medical History: Reports Other
Additional Past Medical History:
Coronary Artery Disease s/p Stents and CABG
Diabetes Mellitus, Type II
Essential Hypertension
Hyperlipidemia
Asthma
Systemic Lupus Erythematosus
Rheumatoid Arthritis
Chronic Hip Mass/Infection
DVT
Morbid Obesity
Past Surgical History: Reports Other
Additional Past Surgical History:
CABG
Bilateral Hip Replacements
Section
Social History
Tobacco: Non-smoker
Alcohol: None
Family History
Family History: Not pertinent
Allergies / Home Medications
Allergies reflects when Allergies were last updated in [facility] [employer] [facility].
Home Medications with original date entered in [facility] [employer] [facility]
Allergy/Medication List:
Allergies
Allergy/AdvReac Type Severity Reaction Status Date / Time
codeine Allergy Hives Verified 07/02/24 11:41
etanercept [From Enbrel] Allergy Hives Verified 07/02/24 11:41
hydroxychloroquine Allergy Hives Verified 07/02/24 11:41
[From Plaquenil]
infliximab [From Remicade] Allergy heart Verified 07/02/24 11:41
stopped
metformin Allergy Nausea / Verified 07/02/24 11:41
Vomiting
oxycodone HCl Allergy seizures Verified 07/02/24 11:41
[From OxyContin]
Penicillins Allergy Hives Verified 07/02/24 11:41
'gold shots' Allergy Hives Uncoded 07/02/24 11:41
Home Medications
cholecalciferol (vitamin D3) 50 mcg (2,000 unit) tablet 2,000 unit PO DAILY Supplement 12/21/16
montelukast 10 mg tablet 10 mg PO QPM 02/02/21
aspirin 81 mg chewable tablet 81 mg PO DAILY 02/09/21
pantoprazole 40 mg tablet,delayed release 40 mg PO DAILY #30 tabs 02/09/21
dulaglutide 0.75 mg/0.5 mL subcutaneous pen injector (Trulicity) 0.75 mg SC FR 08/06/23
ezetimibe 10 mg tablet (Zetia) 10 mg PO DAILY 08/06/23
mycophenolate mofetil 500 mg tablet 1,000 mg PO BID 08/06/23
prednisone 10 mg tablet 10 mg PO DAILY 08/06/23
atorvastatin 80 mg tablet 80 mg PO QPM 07/02/24
cefadroxil 500 mg capsule 500 mg PO BID 07/02/24
clopidogrel 75 mg tablet 75 mg PO DAILY 07/02/24
coenzyme Q10 200 mg capsule 200 mg PO DAILY 07/02/24
cyanocobalamin (vitamin B-12) 2,500 mcg tablet 2,500 mcg PO DAILY 07/02/24
folic acid 1 mg tablet 1 mg PO DAILY 07/02/24
gabapentin 100 mg capsule 100 mg PO HS 07/02/24
magnesium oxide 400 mg PO QPM 07/02/24
metoprolol succinate 25 mg tablet,extended release 24 hr 25 mg PO DAILY 07/02/24
therapeutic multivitamin 1 tab PO DAILY 07/02/24
Review of Systems
-
A 12 point ROS was completed and negative except as noted: Yes
Constitutional: Denies Fever
Respiratory: Reports Cough and Trouble Breathing
Cardiac: Denies Chest Pain or Palpitations
Abdomen/GI: Reports Nausea, Vomiting and Diarrhea
Physical Exam
Vital Signs
Vital Signs
Temp Pulse Resp BP Pulse Ox
98.5 F 103 38 80/66 96
07/02/24 11:38 07/02/24 15:37 07/02/24 15:37 07/02/24 15:37 07/02/24 15:37
Physical Exam
General: Well Developed, Well Nourished, Conversant and Morbidly Obese
HEENT: Anicteric, Moist mucous membranes and Oxygen (Nasal Cannula)
Respiratory: Clear and Other (Poor inspiratory effort, Appears short of breath with conversation)
Cardiac: S1/S2, Regular Rhythm and Tachycardia
GI: Soft and Non Tender
Rectal: Deferred by Provider
Musculoskeletal: No Clubbing, No Cyanosis and No Edema
Skin: Warm and Dry
Neuro: Awake, Alert, Oriented and Nonfocal/grossly intact
Psych: Calm
Laboratory Results
-
07/02/24 11:50
07/02/24 11:50
Laboratory Results
Lactic Acid 2.1 mmol/L (0.7-2.0) H 07/02/24 13:40
Total Bilirubin 3.2 mg/dl (0.2-1.3) H 07/02/24 11:50
AST 21 U/L (14-36) 07/02/24 11:50
ALT 16 U/L (0-35) 07/02/24 11:50
Alkaline Phosphatase 74 U/L (38-126) 07/02/24 11:50
Troponin I 0.146 ng/ml H* 07/02/24 11:50
Lipase 46 U/L (23-300) 07/02/24 13:40
Abd/Pelvis CT Scan:
Moderate-sized pericardial effusion with associated pericardial enhancement and mild thickening which is favored to represent acute pericarditis.
Small left and trace right pleural effusions with adjacent bibasilar atelectasis.
There is a heterogeneous collection with internal calcifications extending along the right iliopsoas which measures 7.4 x 6.8 x 12.3 cm which may be related to the right hip arthroplasty, iliopsoas bursitis or represent a hematoma.
Nonobstructing renal calculus measuring up to 8mm on the right.
Data Reviewed
-
CT Scan: Report Reviewed by me
Lab Data: Labs Reviewed by me
Old Records: Reviewed
Impression/Plan
-
Septic Shock - Unclear source of infection, possibly GI source vs infected right iliopsoas collection
-Check stool for C Diff, Norovirus and Stool Culture
-Await blood cultures
-Start empiric oral vancomycin
-Consider IR consult for right iliopsoas collection if no other source of infection
-Consult Infectious Disease
Large Pericardial Effusion with Tamponade Physiology
-Cardiology planning for pericardiocentesis this evening
Elevated Troponin, suspect non-ischemic myocardial injury due to hypotension
-Continue to trend
Acute Kidney Injury, likely to due hypovolemia
-Continue IVFs
-Recheck labs in AM
Coronary Artery Disease s/p PCI (2020) and CABG (2023)
-Continue aspirin and Plavix if OK with interventionalist following pericardiocentesis
Diabetes Mellitus, Type II
-Patient maintained on Trulicity
-Monitor sugars and continue coverage insulin
Essential Hypertension
-Metoprolol on hold due to hypotension
Hyperlipidemia
-Continue atorvastatin and ezetimibe
Asthma, no acute exacerbation
-Continue montelukast
Systemic Lupus Erythematosus / Rheumatoid Arthritis
-Patient currently on stress dose steroids
-Continue mycophenolate
Chronic Hip Mass/Infection
-Continue usual cefadroxil
Morbid Obesity
-Affects all aspects of care
DVT proph:SC Heparin
Code Status: Full Code
[2024-07-02 16:27] LABS: COVID-19 Antigen Negative (Negative)
--- NOTE | 2024-07-02 16:41 | CON.CAR ---
Consultation
Consultation Request
Requesting Provider: Elayne Villalpando
Performing Provider: Santo
Reason for Consultation: SOB, tachycardia, effusion
Medical History
-
Chief Complaint: SOB
History of Present Illness:
Patient is a pleasant 63-year-old female with a past medical history significant for CAD status post two-vessel CABG August 2023 at [facility], mild aortic stenosis, mixed hyperlipidemia, diabetes mellitus type 2, SLE, morbid
obesity, hypertension, obstructive sleep apnea who presents following 1 day history of fevers, chills, shortness of breath, nausea, vomiting, diarrhea. In the emergency department, patient was noted to have a leukocytosis of 22, sinus tachycardia,
elevated D-dimer. Patient underwent CT abdomen pelvis due to abdominal discomfort, diarrhea, nausea, vomiting and was noted to have a moderate-sized pericardial effusion. Stat echocardiogram was performed which demonstrated a large sized
pericardial effusion. In discussion with patient, she reports shortness of breath, cough, nausea, vomiting, abdominal pain, diarrhea. She denies chest pain, palpitations, near-syncope, syncope, edema, or weakness. She reports adherence to all
medications. Patient is a non-smoker, no alcohol, no illicits.
Past Medical History
Past Medical History: Other (See HPI)
Past Surgical History: Other (Buttock abscess with reconstruction and wound debridement 2012, left hip replacement, x 1, white hip replacement revision x 3, cystic mask right hip, PCI and stent to left main/LAD/circumflex 02/2021, CABG x 2
(CUMMINGS-LAD, SVG-OM, 08/2023))
Social History
Tobacco: Non-Smoker
Alcohol: None
Drug: None
Living: With Family
Family History
Family History: Reviewed & Not Pertinent
Allergies / Home Medications
Allergy/AdvReac Type Severity Reaction Status Date / Time
codeine Allergy Hives Verified 07/02/24 11:41
etanercept [From Enbrel] Allergy Hives Verified 07/02/24 11:41
hydroxychloroquine Allergy Hives Verified 07/02/24 11:41
[From Plaquenil]
infliximab [From Remicade] Allergy heart Verified 07/02/24 11:41
stopped
metformin Allergy Nausea / Verified 07/02/24 11:41
Vomiting
oxycodone HCl Allergy seizures Verified 07/02/24 11:41
[From OxyContin]
Penicillins Allergy Hives Verified 07/02/24 11:41
'gold shots' Allergy Hives Uncoded 07/02/24 11:41
�Medication �Instructions �Recorded �Confirmed �Type
cholecalciferol (vitamin D3) 50 2,000 unit PO DAILY Supplement 12/21/16 07/02/24 History
mcg (2,000 unit) tablet
montelukast 10 mg tablet 10 mg PO QPM 02/02/21 07/02/24 History
aspirin 81 mg chewable tablet 81 mg PO DAILY 02/09/21 07/02/24 Rx
pantoprazole 40 mg tablet,delayed 40 mg PO DAILY #30 tabs 02/09/21 07/02/24 Rx
release
dulaglutide 0.75 mg/0.5 mL 0.75 mg SC FR 08/06/23 07/02/24 History
subcutaneous pen injector
(Trulicity)
ezetimibe 10 mg tablet (Zetia) 10 mg PO DAILY 08/06/23 07/02/24 History
mycophenolate mofetil 500 mg tablet 1,000 mg PO BID 08/06/23 07/02/24 History
prednisone 10 mg tablet 10 mg PO DAILY 08/06/23 07/02/24 History
atorvastatin 80 mg tablet 80 mg PO QPM 07/02/24 07/02/24 History
cefadroxil 500 mg capsule 500 mg PO BID 07/02/24 07/02/24 History
clopidogrel 75 mg tablet 75 mg PO DAILY 07/02/24 07/02/24 History
coenzyme Q10 200 mg capsule 200 mg PO DAILY 07/02/24 07/02/24 History
cyanocobalamin (vitamin B-12) 2,500 mcg PO DAILY 07/02/24 07/02/24 History
2,500 mcg tablet
folic acid 1 mg tablet 1 mg PO DAILY 07/02/24 07/02/24 History
gabapentin 100 mg capsule 100 mg PO HS 07/02/24 07/02/24 History
magnesium oxide 400 mg PO QPM 07/02/24 07/02/24 History
metoprolol succinate 25 mg 25 mg PO DAILY 07/02/24 07/02/24 History
tablet,extended release 24 hr
therapeutic multivitamin 1 tab PO DAILY 07/02/24 07/02/24 History
Review of Systems
-
History Source: Patient and Family
Constitutional: Fever, Fatigue and Chills
EENT: No Symptoms
Respiratory: Cough and Trouble Breathing
Cardiac: No Symptoms
Abdomen/GI: Abdominal Pain, Nausea, Vomiting and Diarrhea
: No Symptoms
Musculoskeletal: No Symptoms
Skin: No Symptoms
Neurological: No Symptoms
Endocrine: No Symptoms
Hematologic/Lymphatic: No Symptoms
Physical Exam
Vital Signs
Temp Pulse Resp BP Pulse Ox
98.5 F 103 38 80/66 96
07/02/24 11:38 07/02/24 15:37 07/02/24 15:37 07/02/24 15:37 07/02/24 15:37
Lab Results
07/02/24 11:50
07/02/24 11:50
Troponin I 0.146 ng/ml H* 07/02/24 11:50
Physical exam:
GENERAL: Mild distress, obese, tachypneic
EYE: sclera anicteric
NECK: Supple, no appreciated JVD, no carotid bruit appreciated
ENT: normal nose, moist mucosal membranes
CARDIAC: Tachycardic rate, regular rhythm, +S1/S2, no murmur, rubs, or gallops
CHEST/PULMONARY: Normal effort, clear breath sounds
ABDOMEN: Soft, without focal tenderness or distention
NEUROLOGICAL: Alert and oriented x3
SKIN: Warm and dry, no rash; no edema
PSYCH: Normal and appropriate interaction.
Impression / Plan
-
Primary care: KARMEN Cho
Primary Cardiology: Malik Cardenas DO
.
Impression:
Pericardial effusion, large, tamponade physiology
� Noted shortness of breath, tachycardia
� Echocardiogram RA/RV chamber collapse with a roughly 3 cm effusion
Leukocytosis
Sepsis, unclear etiology
� COVID-negative
� Flu, C. difficile, norovirus pending
� Reported fevers chills, associated sinus tachycardia
TANGELA, creatinine 1.7; prior baseline appears to be 0.8�1.0
� Likely in the setting of hypovolemia associated with sepsis
CAD status post PCI 2020, CABG 2023
Hypertension
Diabetes mellitus type 2
Mixed hyperlipidemia
SLE
ALFA
Obesity
TTE 01/04/2023: Normal LV size and function, EF 59%, mild LVH; mild MR, mild MAC, mild AAS, trace TR PASP 25 mmHg normal pericardium without effusion, fat pad present
ALETA 08/14/2023: Trace AR, moderate MR, mild TR, normal RV, normal LV preserved wall motion, EF 75%, no pericardial or pleural effusion
CT abdomen pelvis with contrast 07/02/2024: Moderate-sized pericardial effusion with associated pericardial enhancement mild thickening favor acute pericarditis; small left, trace right pleural effusion; heterogeneous collection internal
calcifications extending along the right iliopsoas measuring 7.4 x 6.8 x 12.3, nonobstructing renal calculus 8 mm on the right
TTE 07/02/2024: EF 65-70%, LVH, mild , mild TR PASP 50 mmHg, IVC dilated, large pericardial effusion around RA/RV with evidence of hemodynamic compromise
Plan:
� Reviewed findings from stat echocardiogram with interventional list on-call, Dr. Eric Godoy. Given evidence of large pericardial effusion with RV/RA chamber collapse, evidence of hemodynamic compromise, with hypotension, sinus tachycardia,
and associated shortness of breath, it was recommended that patient undergo urgent pericardiocentesis. [employer] called the stat for intervention.
� Infectious workup pending with primary service patient to be admitted to hospitalist; patient getting IV fluids, antibiotics
� Mild troponin elevation likely myocardial injury without associated LA in the setting of infection, pericardial effusion, hypotension; trend for now
� Resume goal-directed medical therapy when able including aspirin/Plavix with a history of LA
� Monitor on telemetry
� Further recommendations to follow
Data Reviewed
-
EKG: Tracing Personally Visualized and interpreted
Radiology: Report Reviewed by me
CT Scan: Report Reviewed by me
Medical Tests (Nuc Med, Echo etc): Image Personally Visualized and interpreted
Labs: Labs Reviewed by me
Old Records: Reviewed
[2024-07-02] MEDS: NSS 500 IV (16:53)
[2024-07-02] MEDS: NSS 2000 IV (16:53)
[2024-07-02] MEDS: SOLU-CORTEF 100 MG IV (17:00)
--- NOTE | 2024-07-02 18:08 | ITS.CL.PN ---
Scheduling Representative - Procedure Note
Procedure
Procedure Note:
CARDIAC CATHETERIZATION REPORT
Date of Procedure: 07-02-2024
Referring: Dr. Casa Blanchard MD
Indication: cardiac tamponade
PROCEDURE: pericardiocentesis
ACCESS: 6F subxiphoid
HEMODYNAMIC DATA
opening pericardial pressure: 22
closing pericardial pressure: 17
PROCEDURE DESCRIPTION: Subxiphoid pericardial access was initially attempted with a 7 cm Cook needle, however, this did not provide adequate reach. A 9 cm micropuncture needle was used to gain access to the subxiphoid space and a micropuncture wire
placed. The wire was observed to curl within the pericardial space and cross midline. There was no ectopy observed on the monitor. The micropuncture sheath was then advanced over the wire and straw-colored fluid removed from the sheath. A 0.035
wire was advanced through the micropuncture sheath and observed to curl in the pericardial space and cross midline. A 6 Solomon Islander dilator was then used to dilate the tract with some difficulty, presumably due to scar tissue secondary to prior coronary
artery bypass grafting. The pigtail catheter was unable to advance over the wire, so the tract was further dilated with a 7 Solomon Islander dilator followed by placement of an Amplatz extra-stiff wire over which a 6 Solomon Islander sheath was placed. The pigtail
catheter was then advanced over the wire through the sheath. Initial pericardial pressure was then measured, followed by removal of about 300 cc of straw-colored fluid. Final echocardiogram images demonstrated no residual effusion. Closing
pericardial pressure was measured at 17 mmHg. Presumably, some of this residual pressure is due to the patient's body habitus and potential contribution from pericardial constriction. The sheath sidearm was hooked up to the Vacutainer and the
patient was sent to the CVICU. Blood pressure was much improved at the end of the procedure and heart rate had decreased. There were no complications and the patient tolerated the procedure well.
CONCLUSIONS:
1. Successful pericardiocentesis via subxiphoid approach with 600 cc of straw-colored fluid removed
2. Fluid studies were sent for analysis
3. Recommend echocardiogram tomorrow and removal of sheath if no residual effusion is noted
Signed: Eric Godoy MD, PhD
--- NOTE | 2024-07-02 18:20 | PTCARENOTE ---
Pt arrived from [employer] laboratory [employer] via bed with 2 liters nasal cannula with IVF via left AC#20g IV. She is awake and alert. She is morbidly obese with large and short neck. She denied using CPAP or Oxygen at home. Right AC#20g catheter flushed and patent. CHG
bath upon arrival. Skin intact other than anterior chest wall 6 fr 23cm sheath/pericardial drain to large Vacutainer. Drainage noted to be clear and scant, no drainage collected in Vacutainer. She was informed on the plan of care and use of call
hoffmann. She did inform me that she is a Orthodox and did not want any blood products. She also wishes to keep the door open for claustrophobia. Family brought to the bedside once admission completed.
[2024-07-02 18:33] LABS: Body Fluid Glucose 112 mg/dl; Body Fluid LDH 662 U/L; Body Fluid Protein 3.8 g/dl
[2024-07-02] MEDS: NSS 1000 IV (18:38)
[2024-07-02 19:17] LABS: Body Fluid Hematocrit < 1.0 %
[2024-07-02 19:19] LABS: Body Fluid WBC 10989 /CUMM
[2024-07-02 19:20] LABS: Body Fluid Second Tech CF
[2024-07-02] MEDS: FIRVANQ 250 MG PO (20:13)
[2024-07-02] MEDS: LIPITOR 80 MG PO (20:13)
[2024-07-02] MEDS: CELLCEPT 1000 MG PO (20:13)
[2024-07-02 20:17] LABS: Magnesium 1.8 mg/dl (1.6-2.3); Phosphorus 3.7 mg/dl (2.5-4.5)
[2024-07-02] MEDS: SINGULAIR 10 MG PO (20:21)
[2024-07-02 20:39] LABS: Glucose - Point of Care 187 mg/dl (70-99)
[2024-07-02 20:58] LABS: APTT 36.8 Sec (23.4-35.0); INR 1.21; PT 15.8 Sec (11.4-14.6)
[2024-07-02] MEDS: NOVOLOG FLEXPEN 1 UNITS SC (21:04)
[2024-07-02 21:16] LABS: Procalcitonin 0.64 ng/ml (0.0-0.25)
[2024-07-02 21:22] LABS: Troponin I 0.383 ng/ml
--- NOTE | 2024-07-02 21:42 | W.PN.UPDATE ---
Update Note
Progress Note Update
Patient seen/examined and discussed with PRINCE Stuart, and I agree with her note.
Gen-AAOx3, NAD, obese
HEENT-NC, AT, anicteric, clear MM
Neck-supple
CV-reg, tachy
Lungs-clear
Abd-soft, NT, ND
Ext-no edema
Neuro-grossly intact, nonfocal
Shock - septic vs cardiogenic due to tamponade/effusion, vs. other cause. Admit to ICU. IVF support for hypotension.
Check cultures, concern for GI source given vomiting and diarrhea. Lactic acidosis due to shock, sepsis. Improved.
Check stool studies. Start empiric oral Vanco for possible CDAD.
Stress dose steroids given chronic prednisone use.
Large pericardial effusion -early tamponade physiology. Underwent pericardiocentesis tonight, 600cc fluid removed, drain placed. Send fluid for cultures please, cytology.
Echo in am. Appreciate cardiology input.
TANGELA - possibly due to shock, sepsis, volume depletion. IVF support, labs in am.
Troponin elevation - possibly acute nonischemic myocardial injury due to sepsis, shock, TANGELA, etc.
Chronic right iliopsoas fluid collection - on chronic suppressive antibiotics. Unclear if fluid represents infection vs seroma. Doubt hematoma given normal Hgb.
Hyponatremia - 133, possibly due to hyperglycemia. Labs in am.
CAD/CABG - stable.
DM2 with hyperglycemia - she is on Trulicity subQ every Sunday. Use SSI in the hospital. Check HgbA1c.
Essential HTN - hold meds for shock.
Hyperlipidemia
Morbid obesity due to excess calories
Full code
65 min critical care time used.
Updated family at bedside.
[2024-07-02] MEDS: NEURONTIN 100 MG PO (21:57)
--- NOTE | 2024-07-02 22:00 | PTCARENOTE ---
assumed care of pt from previous RN. pt A&Ox4, resting in bed at time of assessment. SR on tele-monitor. HR ~83 bpm. palpable peripheral pulses. no edema noted. POX 92-96% on 2 L NC. JACKMAN. lungs diminished throughout. abd s/n, +BS. no c/o nausea at
this time. pt voiding ignacio urine in BSC. anterior chest pericardial drain, draining serous drainage to gravity. PIV x2 intact. see worklist for complete nursing assessment, interventions, VS, and I&Os.
[2024-07-03] VITALS (17 sets, daily range): BP systolic 100–136; BP diastolic 46–88; BMI 43.0
[2024-07-03] MEDS: HEPARIN 5000 UNITS SC ×3 (00:41→16:35)
[2024-07-03] MEDS: SOLU-CORTEF 50 MG IV ×2 (00:42→07:57)
[2024-07-03] MEDS: FIRVANQ 250 MG PO ×2 (00:42→05:50)
--- NOTE | 2024-07-03 01:00 | PTCARENOTE ---
assessment remains unchanged. SR on tele-monitor. POX 96% on 2 L NC.
[2024-07-03] MEDS: DILAUDID 0.5 MG IV (01:57)
[2024-07-03 03:18] LABS: Hematocrit 30.7 % (37.0-47.0); Hemoglobin 9.5 g/dL (12.0-16.0); Mean Corp Hgb Conc. 30.9 g/dL (33.0-37.0); Mean Corpuscular Hgb 26.5 pg (27.0-31.0); Mean Corpuscular Volume 85.8 fL (81.0-99.0); Mean Platelet Volume 10.6 fL (7.4-10.4); Platelet Count 226 10^3/uL (130-400); Red Blood Cell Count 3.58 10^6/uL (4.20-5.40); Red Cell Dist. Width 17.2 % (11.5-14.5); White Blood Cell Count 17.6 10^3/uL (4.8-10.8)
[2024-07-03 03:33] LABS: ALT (SGPT) 16 U/L (0-35); AST (SGOT) 27 U/L (14-36); Alkaline Phosphatase 63 U/L (38-126); Blood Urea Nitrogen 25 mg/dl (7-17); Calcium 8.1 mg/dl (8.4-10.2); Carbon Dioxide 27 mmol/L (22-30); Chloride 102 mmol/L (98-107); Direct Bilirubin 0.5 mg/dl (0.0-0.4); Estimated Creatinine Clearance 52 ml/min; Glucose 141 mg/dl (70-99); Potassium 4.3 mmol/L (3.5-5.1); Sodium 136 mmol/L (135-145); Total Bilirubin 2.1 mg/dl (0.2-1.3); Total Protein 5.1 g/dl (6.3-8.2); eGFR 46.78
[2024-07-03 03:45] LABS: Troponin I 0.257 ng/ml
--- NOTE | 2024-07-03 05:00 | PTCARENOTE ---
no acute changes. VSS.
[2024-07-03] MEDS: NSS 1000 IV ×3 (05:51→22:39)
[2024-07-03 07:51] LABS: Glucose - Point of Care 159 mg/dl (70-99)
[2024-07-03 07:54] LABS: Body Fluid Granulocytes 95 %; Body Fluid Lymphocytes 0 %; Body Fluid Macrophages 5 %
[2024-07-03] MEDS: NOVOLOG FLEXPEN-MODERATE RESISTANCE 1 UNITS SC ×2 (07:54→11:49)
[2024-07-03] MEDS: CELLCEPT 1000 MG PO (07:56)
[2024-07-03] MEDS: PROTONIX 40 MG PO (07:57)
[2024-07-03] MEDS: ZETIA 10 MG PO (07:57)
--- NOTE | 2024-07-03 08:06 | W.PN.HOSP.TC ---
Today's Communication/Plan
-
Echocardiogram
Await cultures
Fibrinogen
Peripheral smear
LDH, haptoglobin
Assessment / Plan
Assessment / Plan
Gen-AAOx3, NAD, morbid obesity
HEENT-NC, AT, anicteric, clear oral mm
Neck-supple
CV-reg, no M, +S1/S2
Lungs-clear B/L
Abd-soft, NT, ND
Ext-no edema
Musculoskeletal-no cyanosis, clubbing
Skin-warm and dry, pericardial drain in place
Neuro-grossly non-focal
Psych-calm, cooperative
Cardiac tamponade -underwent successful pericardiocentesis 07/02, 600 cc straw-colored fluid removed. Drain in place. For repeat echocardiogram today. Fluid studies pending.
Unclear etiology for pericardial effusion. Differential diagnosis includes infection, malignancy, rheumatologic condition. Patient has no known history of malignancy. Sister has metastatic melanoma.
Shock -suspect related to hypovolemia and tamponade physiology due to large pericardial effusion. Shock resolved. Did not require vasopressors. Stable for transfer out of ICU today.
Sepsis seems less likely as a source of shock.
Given stress dose of steroids given chronic use of prednisone.
Sepsis -present on admission. Unclear etiology. Vomiting and diarrhea prior to admission suggestive of acute gastroenteritis, symptoms resolved. If she has further diarrhea we will send stool studies. Hold further oral vancomycin for now.
Blood cultures are pending. ID consulted. Leukocytosis improving. Afebrile this morning. Lactic acidosis resolved.
Procalcitonin is unreliable in the setting of TANGELA.
Acute normocytic anemia -suspect hemodilution due to IV fluid administration. Doubt bleeding. Elevated indirect bilirubin concerning, rule out hemolysis. Check peripheral smear, LDH, haptoglobin. Platelet count normal. Elevated D-dimer
concerning, check fibrinogen. However low suspicion for DIC.
TANGELA -improving with IV fluid support.
Troponin elevation -suspect acute nonischemic myocardial injury, possibly due to shock, sepsis, pericardial tamponade. Troponin trending down. Doubt ACS.
Hyponatremia -resolved.
Chronic right iliopsoas fluid collection - on chronic suppressive antibiotics, cefadroxil. Unclear if fluid represents infection vs seroma. Doubt hematoma given normal Hgb.
CAD/CABG - stable. Cardiology has requested that we hold antiplatelet therapy given pericardial drain.
DM2 with hyperglycemia - she is on Trulicity subQ every Sunday. Use SSI in the hospital. Check HgbA1c. Glucose 141 this morning.
Essential HTN -blood pressure improved.
Hyperlipidemia -atorvastatin.
SLE/RA -on chronic prednisone. Give a brief trial of stress dose steroids, then resume chronic prednisone.
Morbid obesity due to excess calories
Full code
Anticipated Discharge: > 48 hours
Subjective/Interval History
-
Date of Service: July 03, 2024
Patient seen and examined. No complaints. Feeling much better. Denies shortness of breath or chest pain. Denies nausea vomiting or diarrhea.
Objective Data
-
Labs:
Laboratory Results
07/02/24 07/03/24
20:37 02:50
WBC 17.6 H
Hgb 9.5 L D
Hct 30.7 L
Plt Count 226 D
PT 15.8 H
INR 1.21
APTT 36.8 H
Sodium 136
Potassium 4.3
Chloride 102
Carbon Dioxide 27
BUN 25 H
Creatinine 1.3 H
Glucose 141 H
Calcium 8.1 L
Total Bilirubin 2.1 H
AST 27
ALT 16
Alkaline Phosphatase 63
Vital Signs:
Vital Signs
Temp Pulse Resp BP Pulse Ox
97.4 F 73 30 130/49 93
07/03/24 06:00 07/03/24 07:00 07/03/24 07:00 07/03/24 07:00 07/03/24 06:30
I&O
12/07/03/24 07/04/24
06:59 06:59 06:59
Intake Total 920 / 920
Output Total 390 / 390
Balance 530 / 530
Review of Systems
-
History Source: Patient
All other systems: Reviewed and negative
--- NOTE | 2024-07-03 09:01 | PTCARENOTE ---
Received pt this am on 4lnc with sats as charted, weaned to 2lnc without complaint. Denies nausea/vomiting/diarrhea. Reports 'I can take a deep breath'. Pericardial drain in place with minimal serous drainage in large bulb drain. Pt assisted to
bedside commode then to chair. Attempted multiple times to obtain fibrinogen level without success. Phlebotomy unavailable at present. Otherwise please see flow sheet
--- NOTE | 2024-07-03 09:48 | W.PN.CARDCBS ---
Addendum entered and electronically signed by Harrison Shea MD 07/03/24 09:55:
Abnormal troponin is likely nonischemic myocardial injury at this time.
Original Note:
Today's Communication / Plan
-
Clinically improved. Will repeat echo and hopefully remove pericardial drain today.
Await fluid cytology and culture data.
Etiology of pericardial effusion remains unclear.
Creatinine improving and down to 1.3. White blood cell count also improved
Check CRP, possibly effusion related to autoimmune?
Impression / Plan
-
Primary care: KARMEN Cho
Primary Cardiology: Malik Cardenas DO
.
Impression:
Pericardial effusion, large, tamponade physiology s/p pericardiocentesis and drain
Leukocytosis
Sepsis, unclear etiology
� COVID-negative
� Flu, C. difficile, norovirus pending
� Reported fevers chills, associated sinus tachycardia
TANGELA,
CAD status post PCI 2020, CABG 2023
Hypertension
Diabetes mellitus type 2
Mixed hyperlipidemia
SLE
ALFA
Obesity
TTE 01/04/2023: Normal LV size and function, EF 59%, mild LVH; mild MR, mild MAC, mild AAS, trace TR PASP 25 mmHg normal pericardium without effusion, fat pad present
ALETA 08/14/2023: Trace AR, moderate MR, mild TR, normal RV, normal LV preserved wall motion, EF 75%, no pericardial or pleural effusion
CT abdomen pelvis with contrast 07/02/2024: Moderate-sized pericardial effusion with associated pericardial enhancement mild thickening favor acute pericarditis; small left, trace right pleural effusion; heterogeneous collection internal
calcifications extending along the right iliopsoas measuring 7.4 x 6.8 x 12.3, nonobstructing renal calculus 8 mm on the right
TTE 07/02/2024: EF 65-70%, LVH, mild , mild TR PASP 50 mmHg, IVC dilated, large pericardial effusion around RA/RV with evidence of hemodynamic compromise
Plan:
-Status post pericardiocentesis with 600 cc of strawlike fluid removed.
-Await fluid cytology and analysis. Gram stain and fluid culture pending.
-Will repeat echocardiogram today. Hopefully remove drain today.
-Etiology of effusion remains unclear at this time.
-Creatinine improving. Will continue gentle hydration. Creatinine down to 1.3.
-Resume aspirin today. Will eventually restart Plavix.
-Hemoglobin down to 9.5. Continue to follow.
-White count is improving and down to 17,000. Okay to continue antibiotics for now
-Remains on chronic prednisone and mycophenolate for lupus/RA.
-Effusion from possible autoimmune flare? Check CRP.
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
Subjective
Date of Service: July 03, 2024
Overall feels better. Breathing is improved.
Objective
Labs:
07/03/24 02:50
07/03/24 02:50
Labs
Hgb 9.5 g/dL (12.0-16.0) L D 07/03/24 02:50
Hct 30.7 % (37.0-47.0) L 07/03/24 02:50
Plt Count 226 10^3/uL (130-400) D 07/03/24 02:50
PT 15.8 Sec (11.4-14.6) H 07/02/24 20:37
INR 1.21 07/02/24 20:37
APTT 36.8 Sec (23.4-35.0) H 07/02/24 20:37
Sodium 136 mmol/L (135-145) 07/03/24 02:50
Potassium 4.3 mmol/L (3.5-5.1) 07/03/24 02:50
BUN 25 mg/dl (7-17) H 07/03/24 02:50
Creatinine 1.3 mg/dL (0.6-1.0) H 07/03/24 02:50
Glucose 141 mg/dl (70-99) H 07/03/24 02:50
Troponins
07/02/24 07/02/24 07/03/24
11:50 20:37 02:50
Troponin I 0.146 H* 0.383 H* 0.257 H* D
Vital Signs and I&O:
Vital Signs
Temp Pulse Resp BP Pulse Ox
98.0 F 75 24 136/63 91
07/03/24 08:00 07/03/24 09:12 07/03/24 09:12 07/03/24 09:12 07/03/24 09:19
Vital Signs
Temp Pulse Resp BP Pulse Ox
98.0 F 75 24 136/63 91
07/03/24 08:00 07/03/24 09:12 07/03/24 09:12 07/03/24 09:12 07/03/24 09:19
Intake & Output
07/01/24 07/02/24 07/03/24 07/04/24
06:59 06:59 06:59 06:59
Intake Total 920 / 1000 160 / 160
Output Total 390 / 390 175 / 175
Balance 530 / 610 -15 / -15
Physical Exam
Physical Exam
GEN: No distress, awake, Ox3
HEENT: supple, anicteric, mmm
LUNGS: scatt rhonchi
CV: Reg, S1/S2, 1/6 syst LSB, no gallop, + peric drain
ABD: soft, BS+, NT/ND
EXT: No edema
NEURO: Gross non-focal
SKIN: No rash
--- NOTE | 2024-07-03 09:53 | CON.ID ---
Consultation
-
Date/Time Consultation Requested: 07/02/24 18:24
Date/Time Consultation Performed: 07/03/24 9:53
Requesting Provider: Sade OJEDA
Performing Provider: Dr Sumner
Reason for Consultation: pericarditis
Chief Complaint / Past History
Chief Complaint
vomiting and diarrhea
History of Present Illness
Ms summers is a 63 year old female with history of SLE/RA on MMF 1000 mg PO BID, pred 10 mg PO qday, chronic right hip infection s/p revision x3 on suppressive cefadroxil (since around 2012, followed by [facility]), class III obesity who presented here
yesterday for abrupt onset of vomiting, diarrhea, cough, shortness of breath, malaise. Reports no prodromal symptoms in the days and weeks leading up to this. No current wounds. No lupus flares in the last year that she can recall. She denies
chest pain, palpitations, near-syncope, syncope, edema, or weakness. She reports compliance with all her medications.
Since arrival here Tmax is 100.9 orally, bp initially persistently hypotensive 73/37 now stabilized, initially tachycardic to the 110-120 range now normalized, wbc initially 22 now 17.6, hgb 12 now 9.5, plt 226, lactic acid initially 2.1 now 1.0, t
bili 3.2 now 21. ast now 27, alt 16, alk phos 63, troponins peaked at 0.38 and now downtrending, procal was sent 0.6, CXR cardiomegaly, small bl pleural effusions, CT s/p with 'moderate pericardial effusion likely pericarditis, heterogeneous
collection with internal calcifications extending along the right iliopsoas which measures 7.4 x 6.8 x 12.3 cm which may be related to the right hip arthroplasty, iliopsoas bursitis or represent a hematoma.' state echo: showed large pericarial
effusion,blood cultures x2 in progress no growth to date, s/p pericardiocentesis with drain placement with fluid wbc 11,000K, 95% granulocytes, glucose 112, protein 3.8, ldh 662, body fluid gram stain pending, fungal and afb cultures are in
progress. 600 ccs of straw colored fluid were initially drained, post pericardiocentesis repeat echo with minimal fluid, covid ag neg, 02/02/21 mrsa screen positive, mrsa screen sent yesterday and in progress, path on the pericardial fluid is
pending, for possible drain removal today per cardiology, antibiotics were ordered but cancelled and patient has not received any systemically acting antibiotics thus far, she did have oral vancomycin 250 mg PO x3 doses but this would not be
systemically absorbed.
Past History
Additional Past Medical History:
Coronary Artery Disease s/p Stents and CABG
Diabetes Mellitus, Type II
Essential Hypertension
Hyperlipidemia
Asthma
Systemic Lupus Erythematosus
Rheumatoid Arthritis
Chronic Hip Mass/Infection
DVT
Additional Past Surgical History:
Buttock abscess with reconstruction and wound debridement 2012, left hip replacement, x 1, hip replacement revision x 3, cystic mask right hip, PCI and stent to left main/LAD/circumflex 02/2021, CABG x 2 (CUMMINGS-LAD, SVG-OM, 08/2023
Allergy History:
codeine Allergy (Verified 07/02/24 11:41)
Hives
etanercept [From Enbrel] Allergy (Verified 07/02/24 11:41)
Hives
hydroxychloroquine [From Plaquenil] Allergy (Verified 07/02/24 11:41)
Hives
infliximab [From Remicade] Allergy (Verified 07/02/24 11:41)
heart stopped
metformin Allergy (Verified 07/02/24 11:41)
Nausea / Vomiting
oxycodone HCl [From OxyContin] Allergy (Verified 07/02/24 11:41)
seizures
Penicillins Allergy (Verified 07/02/24 11:41)
Hives
'gold shots' Allergy (Uncoded 07/02/24 11:41)
Hives
Medications Reviewed: Yes
Social History
Tobacco: Non-Smoker
Alcohol: None
Drug: None
Family History
Family History: Other (sister metastatic melanoma )
Review of Systems
Review of Systems
General: Fever
All systems: All other systems were reviewed and were negative
Vital Signs
Temp Pulse Resp BP Pulse Ox
98.0 F 75 24 136/63 91
07/03/24 08:00 07/03/24 09:12 07/03/24 09:12 07/03/24 09:12 07/03/24 09:19
Physical Exam
Physical Exam
Constitutional: No Acute Distress and Obese
Cardiovascular: Regular Rate and S1/S2; Negative Murmur or Rub
Pulmonary: Clear and Symmetric; Negative Wheezes, Rales or Rhonchi
Gastrointestinal: Soft, Non Tender, Non Distended and Normal Bowel Sounds
Skin: Warm and Dry; Negative Rash or Jaundice
Neurological: Awake
Lines: Other (pericardial drain with serosanguinous fluid)
Lab / Diagnostic Study Results
07/03/24 02:50
07/03/24 02:50
Abs Immat Gran (auto) 0.2 10^3/uL (0-0.05) H 07/02/24 11:50
Absolute Neuts (auto) 18.2 10^3/uL (1.4-6.5) H 07/02/24 11:50
Absolute Lymphs (auto) 2.0 10^3/uL (1.2-3.4) 07/02/24 11:50
Absolute Monos (auto) 2.0 10^3/uL (0.1-0.6) H 07/02/24 11:50
Absolute Basos (auto) 0.1 10^3/uL (0-0.2) 07/02/24 11:50
Immature Gran % 0.8 % (0-0.5) H 07/02/24 11:50
Neutrophils % 81.1 % (42.2-75.2) H 07/02/24 11:50
Lymphocytes % 8.9 % (20.5-51.1) L 07/02/24 11:50
Monocytes % 8.8 % (1.7-9.3) 07/02/24 11:50
Eosinophils % 0.0 % (0-6) 07/02/24 11:50
Basophils % 0.4 % (0-2) 07/02/24 11:50
PT 15.8 Sec (11.4-14.6) H 07/02/24 20:37
INR 1.21 07/02/24 20:37
Lactic Acid 1.0 mmol/L (0.7-2.0) 07/02/24 20:37
Procalcitonin 0.64 ng/ml (0.0-0.25) H 07/02/24 20:37
Ur Squamous Epith Cells 3-5 /LPF (Few) 07/02/24 13:40
Microbiology Results
Micro:
07/02/24 17:08 Fungal Smear - Pending
Pericardial Fluid
07/02/24 17:08 Fungal Culture - Pending
Pericardial Fluid
07/02/24 17:08 Acid Fast Bacilli Smear - Pending
Pericardial Fluid Acid Fast Bacilli Culture - Pending
07/02/24 20:37 MRSA Screen - Pending
Nose
07/02/24 17:08 Body Fluid Culture - Pending
Pericardial Fluid Gram Stain - Pending
07/02/24 16:12 Influenza Types A & B (SASKIA) - Final
Nasal Swab Negative for Influenza A & B, NAAT
Negative results must be combined with clinical observations
and patient history.
Nucleic Acid Amplification test (NAAT)performed on the
[employer] platform.
07/02/24 13:40 Blood Culture - Pending
Blood/Venous
07/02/24 13:40 Blood Culture - Pending
Blood/Venous
Assessment / Plan
Pericarditis - possibly purulent
Immunosuppression - on MMF
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
TANGELA improving
Allergy to penicillin - hives
- both autoimmune and purulent causes of pericarditis are rare but known etiologies; patient is immunosuppressed by report with a chronic infection of the right hip. Malignancy on the differential and cytology was sent
- unfortunately crp is nonspecific and will not distinguish between these etiologies
- lights criteria not reliable for pericardial effusions
- high percentage of neutrophils concerning would start systemic antibiotics while following cultures
- ua without pyuria
- start vancomycin, start ceftriaxone - hold BPM [employer]CH[employer] cefadroxil while on ceftriaxone, restart when stopped
- follow wbc count, crp, cultures, fever curve
--- NOTE | 2024-07-03 10:40 | PTCARENOTE ---
pt having episodes of apnea/hypoxia on room air while sleeping upright in chair. returned to 2lnc. encouraged pt to have outpt sleep study and follow up with device, pt reports oh 'I can't tolerate a mask mentally'. she was made aware of risks of
untreated sleep apnea.
pt also assisted back to bed for f/u echo.
[2024-07-03 10:41] LABS: Glycohemoglobin (HgbA1c) 5.5 % (4.0-5.6)
--- NOTE | 2024-07-03 11:05 | W.PN.INTV ---
Addendum entered and electronically signed by Emilia Bowen MD 07/03/24 16:31:
Patient has been transferred out of ICU
Reviewed with patient possibly of mild interstitial disease at the left base given crackles and abdominal film findings
Reviewed with patient high suspicion for sleep disordered breathing
She would benefit from pulmonary follow-up as outpatient
Pulmonary information left in chart
We will sign off. Please call with questions
Addendum entered and electronically signed by Emilia Bowen MD 07/03/24 12:45:
Patient seen and examined independently by myself
Reviewed below and agree with plan as outlined by resident
Briefly, patient is a 63-year-old female with complex medical history including anemia, diabetes, lupus, rheumatoid arthritis on chronic immunosuppressive therapy, history of chronic right hip infection on chronic antibiotics who presents with
variety of symptoms including GI, cough, shortness of breath. Patient is on chronic immunosuppression with no recent changes. She has not seen rheumatology in a while. Workup revealed elevated troponin, initially elevated lactate, cardiomegaly on
chest x-ray, CT imaging with moderate pericardial effusion. Echocardiogram suggested hemodynamic compromise with increased aortic gradient. Patient underwent pericardiocentesis with drain placement, 600 cc drained. Patient states she was
subjectively improved. Of note she was hypotensive in the ED, systolic pressure in the 60s. We are asked to help from critical care standpoint
Presently she is sitting in the chair, without complaints
Past medical history, social history, family history, review of systems as below
Patient has multiple allergies including penicillins, oxycodone, hydroxychloroquine, etanercept, codeine. Able to tolerate oral cephalosporin
Physical exam
Low-grade fever 100.9 noted. Otherwise hemodynamically stable. 93% on 2 L
Urine output 390 overnight
Chest exam is clear with mild crackles to left base, otherwise decreased breath sounds. Large neck, narrow posterior oropharynx
No murmurs
Abdominal exam benign
Trace lower extreme edema
Morbidly obese
Data reviewed
Hemoglobin 9.5, down from 12.2. Creatinine 1.3, down from 1.7. Mildly elevated troponin.
Abdominal CT imaging with bibasilar atelectasis, left greater than right cannot rule out left lower lobe process
Lactate normal
Echocardiogram with pulmonary artery pressure 50 with evidence of hemodynamic compromise with moderate to large pericardial effusion
A/P
Moving forward, we will continue with supportive care
Follow-up cytological analysis
Given chronic immunosuppression, puts patient at risk for infectious process
Patient on chronic cefadroxil as outpatient
Infectious disease has been consulted. Antibiotics have been started, ceftriaxone/vancomycin
It is noted the patient had diarrhea but has not had it in the last 24 hours
Continue with IV fluids. Creatinine improving
Repeat echocardiogram per cardiology
Aspirin has been held
Immunosuppression noted (mycophenolate, steroids). Would consider holding mycophenolate at this time given possibility of infectious process
Can continue low-dose oral steroid. No indication for stress dose steroids, agree with discontinuing
hemoglobin 9.5. Suspect initial hemoglobin may have been inaccurate. No evidence of active bleeding at this time. Follow-up hemoglobin in p.m.
DVT prophylaxis: Subcutaneous heparin and mechanical prophylaxis
The above was reviewed with critical care nursing, respiratory care, pharmacy, primary service. Also reviewed with cardiology. We will continue to follow
TCCT 31 min
Original Note:
Today's Communication / Plan
Recommendations
.
Assessment
-
Systolic blood pressure ranges from 66-1 48, diastolic blood pressure ranges from 25-1 15, pulse ranged from 73-1 13, temperature ranges from 96.9 200.9, oxygen saturation 94 to 96% on 2 L nasal cannula
Cardiogenic shock due to pericardial effusion:
-Pericardiocentesis was performed and 600 cc of fluid was removed, drain will be removed today. She has no chest pain, shortness of breath, syncope, nausea, vomiting today.
-Continue IV fluids
-Lactic acid levels are normal now, shock resolved
-Repeat echo is pending
-Blood culture still pending
-Stool sample culture still pending
-Stress dose steroids given chronic prednisone use at home
Appreciate cardiology input
Acute kidney injury:
-Creatinine levels 1.3 and trending down
-Continue IVF
Leukocytosis:
-17.6 trending down from 22.6 yesterday, afebrile
-Continue to observe
Normocytic anemia:
-Hemoglobin is 9.5 trending down from 12.5 yesterday
-Trend hemoglobin again at 5 PM today
-Platelet count should be above 20K
-Patient's is a [employer]
Hypoxemia:
-Oxygen saturation ranges from 86 to 91% on 2 L nasal cannula
-Ordered ambulatory pulse ox
-Incentive spirometer
Diabetes mellitus type 2:
-Sliding scale insulin
-Glucose level today is 141
-Hemoglobin A1c is pending
Essential hypertension:
-Restarting metoprolol today
Hyperlipidemia:
-Hold off on statins
Hold aspirin due to bleeding risk for pericardiocentesis drain placed
Currently on heparin for DVT
Subjective Dataa
Subjective Data
Date of Service:
Date of Service: July 03, 2024
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
Subjective:
Patient has no acute medical problems.
She has no major overnight events
She is currently on IV fluids normal saline.
Review of Systems
General: Fever (Negative), Chills (Negative) and Pain (Negative)
HEENT: Epistaxis (Negative)
Cardiopulmonary: Dyspnea (Negative), Cough (Negative), Chest Pain (Negative) and Edema (Negative)
GI: Abdominal Pain (Negative), Nausea (Negative), Vomiting (Negative), Diarrhea (Negative) and Constipation (Negative)
Neuro: Headache (Negative), Numbness (Negative) and Weakness (Negative)
Objective Data
Data Reviewed
Vital Signs / I&O / Oxygen:
Vital Signs
Temp Pulse Resp BP Pulse Ox
98.0 F 75 24 136/63 91
07/03/24 08:00 07/03/24 09:12 07/03/24 09:12 07/03/24 09:12 07/03/24 09:19
Intake and Output
07/02/24 07/03/24 07/04/24
06:59 06:59 06:59
Intake Total 920 / 1000 360 / 360
Output Total 390 / 390 175 / 175
Balance 530 / 610 185 / 185
SaO2 91
Nasal Cannula flow liters per 2
minute
Physical Exam
Cardiovascular: S1-S2 and Regular Rhythm
Respiratory: Other (Decreased breath sounds bilaterally)
GI: Soft, Distended (Obese), Non Tender and Normal Bowel Sounds
Neurology: Awake, Alert, Oriented and AO x 3
Skin: Warm and Dry
Labs/Micro/Reports
Lab Data
07/03/24 02:50
Laboratory Results
07/02/24
20:37
PT 15.8 H
INR 1.21
APTT 36.8 H
Microbiology
07/02/24 16:12 Nasal Swab Influenza Types A & B (SASKIA) - Final
Negative for Influenza A & B, NAAT
Negative results must be combined with clinical observations
and patient history.
Nucleic Acid Amplification test (NAAT)performed on the
[employer] platform.
--- NOTE | 2024-07-03 11:06 | PHA.VAN.IN ---
Assessment
- Assessment
Renal Function: Appears elevated from baseline (1.7-> 1.3 (baseline ~ 0.8))
Maximum Temperature: 100.9 - 07/02 18:54
Minimum Temperature: 96.9- 07/03 01:00
Concomitant Antimicrobials: cefriaxone 2g q24h
AUC Dosing Plan
- Empiric Dosing
Initial / Loading Dose: 2000 mg load dose - administration pending
Maintenance Regimen: dose by random level due to TANGELA
Plan
- Plan
Monitoring: random in AM 07/04
Pharmacokinetics Vancomycin I
- -
Patient Age: 63
Patient Sex: Male
Vancomycin Day #: 1
Indication: Bacteremia
Requesting Provider: Burak
Pertinent Antimicrobial Allergies:
hydroxychloroquine, penicillins - hives
Height / Weight:
Height 5 ft 1.5 in
Actual Weight 104.8 kg
Pertinent Past Medical History: BMI ~ 43
- Vital Signs / Lab Results
Temp Pulse Resp BP Pulse Ox
98.0 F 75 24 136/63 91
07/03/24 08:00 07/03/24 09:12 07/03/24 09:12 07/03/24 09:12 07/03/24 09:19
Lab Results - Hematology
07/02/24 07/03/24
11:50 02:50
WBC 22.4 H 17.6 H
Lab Results - Chemistry
07/02/24 07/03/24
11:50 02:50
BUN 21 H 25 H
Creatinine 1.7 H 1.3 H
Estimated Creat Clear 52
Albumin 3.7 3.0 L
07/02/24 07/02/24
13:40 20:37
Lactic Acid 2.1 H 1.0
Lab Results - Urine
07/02/24
13:40
Urine Nitrite (Reflex) Negative
Leukocyte Esterase Rfl Trace A
Urine WBC (Reflex) 0-2
Ur Squamous Epith Cells 3-5
Microbiology Results
07/02/24 16:12 Influenza Types A & B (SASKIA) - Final
Nasal Swab Negative for Influenza A & B, NAAT
Negative results must be combined with clinical observations
and patient history.
Nucleic Acid Amplification test (NAAT)performed on the
[employer] platform.
[2024-07-03 11:26] LABS: Reticulocyte Count 1.3 % (0.4-2.8)
[2024-07-03] MEDS: FOLVITE 1 MG PO (11:29)
[2024-07-03] MEDS: VANCOCIN 540 MG IV (11:29)
[2024-07-03] MEDS: ROCEPHIN 2000 MG IV (11:30)
[2024-07-03] MEDS: STERILE WATER FOR INJECTION 20 ML IV (11:30)
[2024-07-03] MEDS: DELTASONE 10 MG PO (11:49)
[2024-07-03 11:50] LABS: LDH 303 U/L (120-246)
[2024-07-03 11:51] LABS: Glucose - Point of Care 167 mg/dl (70-99)
--- NOTE | 2024-07-03 11:59 | PTCARENOTE ---
pt again assisted oob to chair. some noted clarke that pt doesn't notice. refusing pain medicine at present. abx given as charted. pericardial drain remains in place without change. otherwise assessment unchanged.
[2024-07-03 12:06] LABS: Absolute Neutrophils -Man Diff 15.4 10^3/uL (1.4-6.5); Band Neutrophils 2 % (0-3); Lymphocytes 4 % (20-51); Monocytes 8 % (2-9); Normal RBC Morphology Yes; Platelets Checked Yes; Segmented Neutrophils 86 % (42-75)
[2024-07-03 12:07] LABS: Acanthocytes 1+; Anisocytosis 1+; Hypochromasia 1+; Ovalocytes FEW; Polychromasia 1+; Total Cells Counted 100
[2024-07-03 13:18] LABS: C-Reactive Protein > 270.00 mg/L (0.0-10.00)
--- NOTE | 2024-07-03 15:30 | PTCARENOTE ---
pericardial drain removed by Dr Palacios at bedside. Pt tolerated well and is currently working with resp to use IS
--- NOTE | 2024-07-03 16:05 | PTCARENOTE ---
Pt without complaint. Dressing dry/intact s/p removal of drain. No other changes
[2024-07-03] MEDS: NOVOLOG FLEXPEN-MODERATE RESISTANCE SC (16:46)
[2024-07-03 16:50] LABS: Glucose - Point of Care 146 mg/dl (70-99)
[2024-07-03 17:21] LABS: Hemoglobin 9.6 g/dL (12.0-16.0)
[2024-07-03] MEDS: LIPITOR 80 MG PO (17:22)
[2024-07-03] MEDS: SINGULAIR 10 MG PO (17:22)
[2024-07-03] MEDS: MAG-TAB SR 84 MG PO (17:22)
[2024-07-03 17:48] LABS: Fibrinogen 770 MG/DL (199-459)
[2024-07-03] MEDS: NEURONTIN 100 MG PO (20:54)
[2024-07-03] MEDS: TYLENOL 650 MG PO (20:54)
--- NOTE | 2024-07-03 21:00 | PTCARENOTE ---
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 IV x 3 WNL- NSS infusing as documented. Sat 95% on 2LNC. pt minimal assisted back to bed, POC discussed,
call hoffmann in reach.
[2024-07-03 21:43] LABS: Glucose - Point of Care 155 mg/dl (70-99)
[2024-07-04 00:17] VITALS: BP 125/108
[2024-07-04] MEDS: HEPARIN 5000 UNITS SC ×3 (00:18→16:42)
[2024-07-04 04:16] VITALS: BP 146/76
[2024-07-04 04:39] LABS: % Basophils 0.2 % (0-2); % Eosinophils 0.1 % (0-6); % Immature Granulocytes 0.5 % (0-0.5); % Lymphocytes 4.6 % (20.5-51.1); % Neutrophils 89.6 % (42.2-75.2); Absolute Immature Granulocytes 0.1 10^3/uL (0-0.05); Absolute Lymphocytes 0.8 10^3/uL (1.2-3.4); Absolute Monocytes 0.9 10^3/uL (0.1-0.6); Absolute Neutrophils 15.2 10^3/uL (1.4-6.5); Hematocrit 30.2 % (37.0-47.0); Hemoglobin 9.1 g/dL (12.0-16.0); Mean Corp Hgb Conc. 30.1 g/dL (33.0-37.0); Mean Corpuscular Hgb 26.1 pg (27.0-31.0); Mean Corpuscular Volume 86.5 fL (81.0-99.0); Mean Platelet Volume 10.9 fL (7.4-10.4); Nucleated Red Blood Cells % 0 %; Platelet Count 245 10^3/uL (130-400); Red Blood Cell Count 3.49 10^6/uL (4.20-5.40); Red Cell Dist. Width 16.9 % (11.5-14.5); White Blood Cell Count 16.9 10^3/uL (4.8-10.8)
[2024-07-04 04:57] LABS: Vancomycin Random 11.2 ug/ml
[2024-07-04 05:02] VITALS: BMI 44.2
[2024-07-04 05:05] LABS: ALT (SGPT) 20 U/L (0-35); AST (SGOT) 29 U/L (14-36); Alkaline Phosphatase 68 U/L (38-126); Blood Urea Nitrogen 31 mg/dl (7-17); Calcium 8.2 mg/dl (8.4-10.2); Carbon Dioxide 24 mmol/L (22-30); Chloride 106 mmol/L (98-107); Estimated Creatinine Clearance 61 ml/min; Glucose 129 mg/dl (70-99); Potassium 4.2 mmol/L (3.5-5.1); Sodium 138 mmol/L (135-145); Total Bilirubin 0.6 mg/dl (0.2-1.3); Total Protein 5.4 g/dl (6.3-8.2); eGFR 57.17
[2024-07-04 08:05] LABS: Glucose - Point of Care 122 mg/dl (70-99)
--- NOTE | 2024-07-04 08:09 | W.PN.CARDCBS ---
Addendum entered and electronically signed by Senthil Pendleton MD 07/05/24 11:05:
Patient seen and examined
Some loose stools though they were present prior to admission
Agree with note and assessment
Agree with plan
Patient does not have any pericardial pain today.
History is notable for PCI in 2020 and coronary artery bypass in 2023.
Mechanism of her pericardial effusion could be for many reasons whether that is postpericardiotomy, rheumatologic, infectious and defer to consultants regarding outpatient treatment
Examination:
Physical Exam
General: no apparent distress, not acutely ill
Neck: supple. no meningeal signs. normal psoterior pharynx
Heart: s1/s2 regular rate and rhythm, no murmur. equal radial pulses.
Lungs: no acute respiratory distress. clear bilaterally
Abdomen: normal bowel sounds. not tender. no CVAT
Neuro: alert and oriented. no focal neurological deficits
Skin: no rash
Psychiatric: well kept. interactive and cooperative
Extremities: no edema. no calf tenderness. negative homans. good distal pulses
Primary care: KARMEN Cho
Primary Cardiology: Malik Cardenas DO
.
Impression:
Pericardial effusion, large, tamponade physiology s/p pericardiocentesis and drain
Leukocytosis
Sepsis, unclear etiology
� COVID-negative
� Flu, C. difficile, norovirus pending
� Reported fevers chills, associated sinus tachycardia
TANGELA,
CAD status post PCI 2020, CABG 2023
Hypertension
Diabetes mellitus type 2
Mixed hyperlipidemia
SLE
ALFA
Obesity
TTE 01/04/2023: Normal LV size and function, EF 59%, mild LVH; mild MR, mild MAC, mild AAS, trace TR PASP 25 mmHg normal pericardium without effusion, fat pad present
ALETA 08/14/2023: Trace AR, moderate MR, mild TR, normal RV, normal LV preserved wall motion, EF 75%, no pericardial or pleural effusion
CT abdomen pelvis with contrast 07/02/2024: Moderate-sized pericardial effusion with associated pericardial enhancement mild thickening favor acute pericarditis; small left, trace right pleural effusion; heterogeneous collection internal
calcifications extending along the right iliopsoas measuring 7.4 x 6.8 x 12.3, nonobstructing renal calculus 8 mm on the right
TTE 07/02/2024: EF 65-70%, LVH, mild , mild TR PASP 50 mmHg, IVC dilated, large pericardial effusion around RA/RV with evidence of hemodynamic compromise
Plan:
She is hemodynamically improved following pericardiocentesis.
Not much evidence at present that pericardial effusion is purulent. Defer to consultants
Pericardial fluid cytology pending
Echocardiogram from July 03 is reassuring, no evidence of significant effusion, will repeat next week. I sent a note to my office to arrange for an echocardiogram as an outpatient next week
Cause of effusion is unclear. Probably not related to bacterial infection. Possibly related to autoimmune disease, RA/lupus, is somewhat late for post-cardiotomy syndrome but conceivable, idiopathic also possible. Will add colchicine at low dose
would recommend 0.3 mg daily and I cautioned the patient to look out for diarrhea. If she notes any worsening of loose stools or diarrhea she should stop colchicine. Colchicine course can be for 4 weeks. will need to monitor CBC given
mycophenolate. If primary team or her her PCP could check on a CBC in 2 to 3 weeks that would be reasonable. Given recent pericardial effusion I would favor reinitiating aspirin only as her stent history is greater than 1 year and would not like
to convert her pericardial fusion to hemorrhagic on dual antiplatelet therapy.
Patient to leave intensive care unit when bed available. Primary team is considering discharge today and I have no objection as long as outpatient follow-up is arranged.
Original Note:
Today's Communication / Plan
-
Stable cardiac status
Will need follow-up echo next week
Impression / Plan
-
Primary care: KARMEN Cho
Primary Cardiology: Malik Gejer, DO
.
Impression:
Pericardial effusion, large, tamponade physiology s/p pericardiocentesis and drain
Leukocytosis
Sepsis, unclear etiology
� COVID-negative
� Flu, C. difficile, norovirus pending
� Reported fevers chills, associated sinus tachycardia
TANGELA,
CAD status post PCI 2020, CABG 2023
Hypertension
Diabetes mellitus type 2
Mixed hyperlipidemia
SLE
ALFA
Obesity
TTE 01/04/2023: Normal LV size and function, EF 59%, mild LVH; mild MR, mild MAC, mild AAS, trace TR PASP 25 mmHg normal pericardium without effusion, fat pad present
ALETA 08/14/2023: Trace AR, moderate MR, mild TR, normal RV, normal LV preserved wall motion, EF 75%, no pericardial or pleural effusion
CT abdomen pelvis with contrast 07/02/2024: Moderate-sized pericardial effusion with associated pericardial enhancement mild thickening favor acute pericarditis; small left, trace right pleural effusion; heterogeneous collection internal
calcifications extending along the right iliopsoas measuring 7.4 x 6.8 x 12.3, nonobstructing renal calculus 8 mm on the right
TTE 07/02/2024: EF 65-70%, LVH, mild , mild TR PASP 50 mmHg, IVC dilated, large pericardial effusion around RA/RV with evidence of hemodynamic compromise
Plan:
At present she looks hemodynamically improved following pericardiocentesis.
Not much evidence at present that pericardial effusion is purulent.
Pericardial fluid cytology pending
Echocardiogram from July 03 is reassuring, no evidence of significant effusion, will repeat next week
Cause of effusion is unclear. Probably not related to bacterial infection. Possibly related to autoimmune disease, RA/lupus, is somewhat late for post-cardiotomy syndrome but conceivable, idiopathic also possible. Will add colchicine at low dose,
will need to monitor CBC given mycophenolate.
Patient to leave intensive care unit when bed available
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
Subjective
Date of Service: July 04, 2024:
63-year-old woman with history of left main PCI, CABG early 2023 at [facility], immunosuppressed on mycophenolate and prednisone for lupus/RA, chronic right hip infection on long-term antibiotic suppression, admitted with clinical sepsis and
pericardial effusion with hemodynamic embarrassment status post pericardiocentesis for 600 milliliters. Drain pulled July 03
She seems considerably better following pericardiocentesis. Sitting in chair, no distress
Allergies, home medications: Per summary screen
PMH: Left main/LAD/circumflex
Radiate non-smoker, no alcohol, family history noncontributory. PCI 2020, CABG 2023, hypertension, diabetes, hyperlipidemia, lupus, sleep apnea, obesity, chronic right hip infection
PSH revision of right hip x 3,, left hip replacement,
Current meds: Saline at 80 mL an hour, atorvastatin 80 mg daily, Neurontin 100 mg at bedtime, Singulair 10 mg a day, mycophenolate 1000 mg twice daily, pantoprazole 40 mg a day, ezetimibe 10 mg a day, subcu heparin, insulin sliding scale, folic
acid, prednisone 10 mg a day, metoprolol ER 25 mg a day, Vitamin B12 p.o., ceftriaxone, vancomycin, vitamin D3, magnesium
146/70, pulse 75, respiratory 24, afebrile, sats 98%, intake and output +2.2 L, weight is 107.9 kg, up 3.1 kg, similar to admission no acute distress head exam unremarkable lungs are clear,
Subxiphoid dressing intact regular rate and rhythm, no obvious murmurs, obese abdomen, not much edema, neck veins okay, neuro nonfocal musculoskeletal, integumentary intact
White count 16.9, hemoglobin 9.1 potassium 4.2, BUN and creatinine 31 and 1.1
ECG on : Sinus tachycardia left atrial enlargement
Gram stain of pericardial fluid rare white cells no organisms
Echo yesterday: EF 65-70%, trace pericardial effusion thickened pericardium
Pericardial effusion white count 10,989, hematocrit less than 1%, 95% polys, glucose 112 protein 3.8, LDH 662
Objective
Labs:
07/04/24 04:17
07/04/24 04:17
Labs
Hgb 9.1 g/dL (12.0-16.0) L 07/04/24 04:17
Hct 30.2 % (37.0-47.0) L 07/04/24 04:17
Plt Count 245 10^3/uL (130-400) 07/04/24 04:17
PT 15.8 Sec (11.4-14.6) H 07/02/24 20:37
INR 1.21 07/02/24 20:37
APTT 36.8 Sec (23.4-35.0) H 07/02/24 20:37
Sodium 138 mmol/L (135-145) 07/04/24 04:17
Potassium 4.2 mmol/L (3.5-5.1) 07/04/24 04:17
BUN 31 mg/dl (7-17) H 07/04/24 04:17
Creatinine 1.1 mg/dL (0.6-1.0) H 07/04/24 04:17
Glucose 129 mg/dl (70-99) H 07/04/24 04:17
Troponins
07/02/24 07/02/24 07/03/24
11:50 20:37 02:50
Troponin I 0.146 H* 0.383 H* 0.257 H* D
Vital Signs and I&O:
Vital Signs
Temp Pulse Resp BP Pulse Ox
36.6 C 75 24 146/76 98
07/04/24 03:00 07/04/24 04:16 07/03/24 16:00 07/04/24 04:16 07/04/24 04:28
Vital Signs
Temp Pulse Resp BP Pulse Ox
36.6 C 75 24 146/76 98
07/04/24 03:00 07/04/24 04:16 07/03/24 16:00 07/04/24 04:16 07/04/24 04:28
Intake & Output
07/02/24 07/03/24 07/04/24 07/05/24
07:59 07:59 07:59 07:59
Intake Total 1000 / 1080 2650 / 2650
Output Total 390 / 565 450 / 450
Balance 610 / 515 2200 / 2200
Physical Exam
Physical Exam
See above
--- NOTE | 2024-07-04 08:38 | W.PN.HOSP.TC ---
Today's Communication/Plan
-
Transfer out of ICU
Continue antibiotics
Await cultures
Assessment / Plan
Assessment / Plan
Gen-AAOx3, NAD, morbid obesity
HEENT-NC, AT, anicteric, clear oral mm
Neck-supple
CV-reg, no M, +S1/S2
Lungs-clear B/L
Abd-soft, NT, ND
Ext-no edema
Musculoskeletal-no cyanosis, clubbing
Skin-warm and dry, pericardial drain in place
Neuro-grossly non-focal
Psych-calm, cooperative
Cardiac tamponade -underwent successful pericardiocentesis 07/02, 600 cc straw-colored fluid removed. Drain removed. Repeat echocardiogram yesterday shows trivial fluid. Fluid studies pending.
Unclear etiology for pericardial effusion. Differential diagnosis includes infection, malignancy, rheumatologic condition. Patient has no known history of malignancy. Sister has metastatic melanoma.
On empiric antibiotics per infectious disease.
Shock -suspect related to hypovolemia and tamponade physiology due to large pericardial effusion. Shock resolved.
Sepsis -present on admission. Unclear etiology. Vomiting and diarrhea prior to admission suggestive of acute gastroenteritis, symptoms resolved. Stool studies sent and pending.
Blood cultures negative so far. ID consulted. Leukocytosis improving. Afebrile this morning. Lactic acidosis resolved.
Procalcitonin is unreliable in the setting of TANGELA.
Acute normocytic anemia -suspect hemodilution due to IV fluid administration. Doubt bleeding. Doubt hemolysis. Hemoglobin relatively stable, 9.1. Platelet count normal. Elevated D-dimer noted but fibrinogen also elevated, acute phase reactant.
LDH mildly elevated. However low suspicion for DIC.
TANGELA -improving with IV fluid support.
Troponin elevation -suspect acute nonischemic myocardial injury, possibly due to shock, sepsis, pericardial tamponade. Troponin trending down. Doubt ACS.
Hyponatremia -resolved.
Chronic right iliopsoas fluid collection - on chronic suppressive antibiotics, cefadroxil. Unclear if fluid represents infection vs seroma. Doubt hematoma.
CAD/CABG - stable. Cardiology has requested that we hold antiplatelet therapy given pericardial drain.
DM2 with hyperglycemia - she is on Trulicity subQ every Sunday. Use SSI in the hospital. Check HgbA1c. Glucose 141 this morning.
Essential HTN -blood pressure improved.
Hyperlipidemia -atorvastatin.
SLE/RA -on chronic prednisone. Give a brief trial of stress dose steroids, then resume chronic prednisone.
Morbid obesity due to excess calories
Full code
Anticipated Discharge: > 48 hours
Subjective/Interval History
-
Date of Service: July 04, 2024
Patient seen and examined. No complaints.
Objective Data
-
Labs:
Laboratory Results
07/04/24
04:17
WBC 16.9 H
Hgb 9.1 L
Hct 30.2 L
Plt Count 245
Sodium 138
Potassium 4.2
Chloride 106
Carbon Dioxide 24
BUN 31 H
Creatinine 1.1 H
Glucose 129 H
Calcium 8.2 L
Total Bilirubin 0.6 D
AST 29
ALT 20
Alkaline Phosphatase 68
Vital Signs:
Vital Signs
Temp Pulse Resp BP Pulse Ox
97.9 F 75 24 146/76 98
07/04/24 08:00 07/04/24 04:16 07/03/24 16:00 07/04/24 04:16 07/04/24 04:28
I&O
07/03/24 07/04/24 07/05/24
06:59 06:59 06:59
Intake Total 920 / 1000 2730 / 2730
Output Total 390 / 390 450 / 450 125 / 125
Balance 530 / 610 2280 / 2280 -125 / -125
Review of Systems
-
History Source: Patient
All other systems: Reviewed and negative
--- NOTE | 2024-07-04 08:53 | W.PN.ID1 ---
Date of Service
Date of Service: July 04, 2024
Today's Communication
- for today, continue vancomycin, ceftriaxone - hold [employer] suppressive cefadroxil for R hip PJI while on ceftriaxone, restart when stopped
- follow wbc count, cultures, fever curve
Assessment / Plan
Pericarditis - possibly purulent
Immunosuppression - on MMF
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
follows with [facility] ID
TANGELA improving
Allergy to penicillin - hives
- both autoimmune and purulent causes of pericarditis are rare but known etiologies; patient is immunosuppressed by report with a remotely known, chronic infection of the right hip. Malignancy on the differential and cytology was sent
- lights criteria not reliable for pericardial effusions
- high percentage of neutrophils concerning would start systemic antibiotics while following cultures - note cultures were done before systemic antibiotic started
- for today, continue vancomycin, ceftriaxone - hold [employer]ER suppressive cefadroxil for R hip PJI while on ceftriaxone, restart when stopped
- pericardial drain removed 07/03
- procalcitonin 07/02 likely elevated due to TANGELA (cr 1.7 at that time), note it is not validated to assess for purulent pericarditis - no benefit to trending
- follow wbc count, cultures, fever curve
Chief Complaint
-: Leukocytosis and Other (pericarditis)
Subjective / Review of Systems
no further fevers
BP stable
pericardial drain removed 07/03
no chest pain, shortness of breath
Vital Signs / Physical Exam
Vital Signs
Vital Signs
Temp Pulse Resp BP Pulse Ox
97.9 F 75 24 146/76 98
07/04/24 08:00 07/04/24 04:16 07/03/24 16:00 07/04/24 04:16 07/04/24 04:28
Physical Exam
Constitutional: No Acute Distress
Cardiovascular: Regular Rate and S1/S2; Negative Murmur or Rub
Pulmonary: Clear and Symmetric; Negative Wheezes or Rales
Gastrointestinal: Soft, Non Tender, Non Distended and Normal Bowel Sounds
Skin: Warm and Dry; Negative Rash or Jaundice
Wound: Other (dressing from drain site clean, dry, intact)
Objective Data
Lab Data
Lab Results
07/04/24 04:17
07/04/24 04:17
PT 15.8 Sec (11.4-14.6) H 07/02/24 20:37
INR 1.21 07/02/24 20:37
APTT 36.8 Sec (23.4-35.0) H 07/02/24 20:37
Estimated Creat Clear 61 ml/min 07/04/24 04:17
Lactic Acid 1.0 mmol/L (0.7-2.0) 07/02/24 20:37
Total Bilirubin 0.6 mg/dl (0.2-1.3) D 07/04/24 04:17
AST 29 U/L (14-36) 07/04/24 04:17
ALT 20 U/L (0-35) 07/04/24 04:17
Alkaline Phosphatase 68 U/L (38-126) 07/04/24 04:17
C-Reactive Protein > 270.00 mg/L (0.0-10.00) H 07/03/24 02:50
Most recent labs reviewed.
LDH 303
Micro Results:
07/04/24 00:23 C. difficile GDH Antigen & Toxins - Final
Feces/Stool Negative for toxigenic C.difficile
- Pending
07/04/24 00:23 Salmonella/Shigella Culture - Pending
Feces/Stool Campylobacter Culture - Pending
Shiga Toxin Test - Pending
07/02/24 13:40 Blood Culture - Preliminary
Blood/Venous No Growth in 24 hours- Final report to follow
07/02/24 13:40 Blood Culture - Preliminary
Blood/Venous No Growth in 24 hours- Final report to follow
07/02/24 17:08 Body Fluid Culture - Pending
Pericardial Fluid Gram Stain - Preliminary
07/02/24 17:08 Fungal Smear - Pending
Pericardial Fluid
07/02/24 17:08 Fungal Culture - Pending
Pericardial Fluid
07/02/24 17:08 Acid Fast Bacilli Smear - Pending
Pericardial Fluid Acid Fast Bacilli Culture - Pending
07/02/24 20:37 MRSA Screen - Pending
Nose
07/02/24 16:12 Influenza Types A & B (SASKIA) - Final
Nasal Swab Negative for Influenza A & B, NAAT
Negative results must be combined with clinical observations
and patient history.
Nucleic Acid Amplification test (NAAT)performed on the
[employer] platform.
[2024-07-04] MEDS: FOLVITE 1 MG PO (09:04)
[2024-07-04] MEDS: VITAMIN B-12 2500 MCG PO (09:04)
[2024-07-04] MEDS: VITAMIN D3 (cholecalciferol) 50 MCG PO (09:04)
[2024-07-04] MEDS: ZETIA 10 MG PO (09:08)
[2024-07-04] MEDS: PROTONIX 40 MG PO (09:08)
[2024-07-04 09:09] VITALS: BP 138/68
[2024-07-04] MEDS: NOVOLOG FLEXPEN-MODERATE RESISTANCE SC (09:10)
[2024-07-04] MEDS: DELTASONE 10 MG PO (09:10)
[2024-07-04] MEDS: TOPROL XL 25 MG PO (09:10)
[2024-07-04 10:05] LABS: Haptoglobin 396 mg/dL (30-200)
[2024-07-04] MEDS: VANCOCIN 200 IV (10:34)
--- NOTE | 2024-07-04 12:03 | PHA.VAN.FU ---
Vancomycin Assessment / Plan
- Assessment
Renal Function: SCR Decreasing
WBC's are: Trending Down
In the past 24 hrs, patient has been: Afebrile
Concomitant Antimicrobials: ceftriaxone 2g q24h
- Dosing Plan
Dosing by Level: Re-dose today (vancomycin 1500 mg)
Dosing Comments: random vancomycin level =11.2
- Monitoring Plan
Random Level: 12.28 @ 06:00
- Follow Up
Pharmacy will continue to follow.
Vancomycin Follow UP
- -
Patient Age: 63
Patient Sex: Male
Vancomycin Day #: 2
Indication: Bacteremia
Requesting Provider: Burak
Pertinent Antimicrobial Allergies:
hydroxychloroquine, penicillins - hives
Height / Weight:
Height 5 ft 1.5 in
Actual Weight 107.9 kg
IBW in k kg
Adjusted BW in k.5 kg
Pertinent Past Medical History: BMI ~ 43
- Vital Signs / Lab Results
Temp Pulse Resp BP Pulse Ox
97.6 F 71 24 138/68 97
07/04/24 11:22 07/04/24 11:00 07/03/24 16:00 07/04/24 09:10 07/04/24 11:09
Lab Results - Hematology
07/02/24 07/03/24 07/04/24
11:50 02:50 04:17
WBC 22.4 H 17.6 H 16.9 H
Band Neutrophils 2
Lab Results - Chemistry
07/02/24 07/03/24 07/04/24
11:50 02:50 04:17
BUN 21 H 25 H 31 H
Creatinine 1.7 H 1.3 H 1.1 H
Estimated Creat Clear 52 61
Albumin 3.7 3.0 L 3.0 L
07/02/24 07/02/24
13:40 20:37
Lactic Acid 2.1 H 1.0
Microbiology Results
07/02/24 17:08 Body Fluid Culture - Preliminary
Pericardial Fluid No Growth After 18-24 Hours
Gram Stain - Preliminary
07/04/24 00:23 C. difficile GDH Antigen & Toxins - Final
Feces/Stool Negative for toxigenic C.difficile
- Final
Negative for Norovirus GI and GII.
07/02/24 20:37 MRSA Screen - Final
Nose Staph aureus MRSA
07/02/24 13:40 Blood Culture - Preliminary
Blood/Venous No Growth in 24 hours- Final report to follow
07/02/24 13:40 Blood Culture - Preliminary
Blood/Venous No Growth in 24 hours- Final report to follow
07/02/24 16:12 Influenza Types A & B (SASKIA) - Final
Nasal Swab Negative for Influenza A & B, NAAT
Negative results must be combined with clinical observations
and patient history.
Nucleic Acid Amplification test (NAAT)performed on the
[employer] platform.
Therapeutic Drug Monitoring
Random Vancomycin 11.2 ug/ml 07/04/24 04:17
[2024-07-04] MEDS: NOVOLOG FLEXPEN-MODERATE RESISTANCE 1 UNITS SC ×2 (12:11→16:25)
[2024-07-04 12:20] LABS: Glucose - Point of Care 175 mg/dl (70-99)
[2024-07-04] MEDS: STERILE WATER FOR INJECTION 20 ML IV (12:41)
[2024-07-04] MEDS: VANCOCIN HCL 500 MG 100 IV (12:41)
[2024-07-04] MEDS: ROCEPHIN 2000 MG IV (12:41)
[2024-07-04 13:54] VITALS: BP 117/53
--- NOTE | 2024-07-04 14:47 | CM ---
CM following re: discharge planning.
Reviewed pt's chart, met with pt.
Pt is a 63 year old female, admitted with primary dx of Septic shock.
Pt reports she lives with son Abdullahi in an apartment, uses a scooter and a cane when goes outside. Pt expressed her desire to return back home at discharge and pt stated her son will transport her home.
PCP: Frantz Mckeon
Pharmacy: [facility]
D/c plan; home with anticipated no needs. Son to transport at discharge.
CM will follow with discharge plan updates as hospitalization progresses
[2024-07-04 16:00] VITALS: BP 142/92
[2024-07-04 16:35] LABS: Glucose - Point of Care 167 mg/dl (70-99)
[2024-07-04] MEDS: MAG-TAB SR 84 MG PO (16:40)
[2024-07-04] MEDS: SINGULAIR 10 MG PO (16:40)
[2024-07-04] MEDS: LIPITOR 80 MG PO (16:41)
[2024-07-04 19:11] VITALS: BP 135/91
--- NOTE | 2024-07-04 20:20 | PTCARENOTE ---
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 pt sitting OOB in chair. POC discussed, call hoffmann with pt.
[2024-07-04] MEDS: COLCHICINE 0.3 MG PO (20:25)
[2024-07-04] MEDS: NEURONTIN 100 MG PO (20:26)
[2024-07-04 21:56] LABS: Glucose - Point of Care 128 mg/dl (70-99)
[2024-07-05] MEDS: HEPARIN 5000 UNITS SC ×2 (00:20→08:35)
[2024-07-05 00:23] VITALS: BP 136/56
[2024-07-05 04:01] VITALS: BP 149/71
[2024-07-05 04:26] VITALS: BMI 44.1
[2024-07-05 04:58] LABS: % Basophils 0.2 % (0-2); % Eosinophils 0.7 % (0-6); % Immature Granulocytes 0.4 % (0-0.5); % Lymphocytes 12.8 % (20.5-51.1); % Monocytes 6.3 % (1.7-9.3); % Neutrophils 79.6 % (42.2-75.2); Absolute Eosinophils 0.1 10^3/uL (0-0.7); Absolute Lymphocytes 1.2 10^3/uL (1.2-3.4); Absolute Monocytes 0.6 10^3/uL (0.1-0.6); Absolute Neutrophils 7.5 10^3/uL (1.4-6.5); Hematocrit 33.5 % (37.0-47.0); Hemoglobin 10.1 g/dL (12.0-16.0); Mean Corp Hgb Conc. 30.1 g/dL (33.0-37.0); Mean Corpuscular Hgb 26.8 pg (27.0-31.0); Mean Corpuscular Volume 88.9 fL (81.0-99.0); Mean Platelet Volume 11.2 fL (7.4-10.4); Nucleated Red Blood Cells % 0 %; Platelet Count 267 10^3/uL (130-400); Red Blood Cell Count 3.77 10^6/uL (4.20-5.40); Red Cell Dist. Width 16.9 % (11.5-14.5); White Blood Cell Count 9.4 10^3/uL (4.8-10.8)
[2024-07-05 05:19] LABS: Vancomycin Random 12.6 ug/ml
[2024-07-05 05:33] LABS: ALT (SGPT) 30 U/L (0-35); AST (SGOT) 34 U/L (14-36); Albumin 3.5 g/dl (3.5-5.0); Alkaline Phosphatase 75 U/L (38-126); Blood Urea Nitrogen 24 mg/dl (7-17); Calcium 8.5 mg/dl (8.4-10.2); Carbon Dioxide 24 mmol/L (22-30); Chloride 106 mmol/L (98-107); Estimated Creatinine Clearance 75 ml/min; Glucose 88 mg/dl (70-99); Sodium 141 mmol/L (135-145); Total Bilirubin 0.5 mg/dl (0.2-1.3); Total Protein 5.9 g/dl (6.3-8.2); eGFR > 60.00
[2024-07-05 05:38] LABS: Potassium 4.3 mmol/L (3.5-5.1)
--- NOTE | 2024-07-05 08:00 | PTCARENOTE ---
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 AAO x 3 sitting up in bed. SR on monitor. Room air 98%. Denies cough or sputum. Abdomen obese, soft and non tender, continues to have frequent soft bms. Voiding w/o issue. Pulses palpable. plan
for day discussed.
--- NOTE | 2024-07-05 08:25 | PHA.VAN.FU ---
Vancomycin Assessment / Plan
- Assessment
Renal Function: SCR Decreasing
WBC's are: Trending Down
In the past 24 hrs, patient has been: Afebrile
Concomitant Antimicrobials: CEFTRIAXONE
- Assessment - Therapeutic Drug Monitoring
Random Level: 12.6
- Dosing Plan
Adjust Regimen to: 1000MG Q12H
New Regimen Predicts: AUC (576), Peak (33.7), Trough (16.2)
- Monitoring Plan
No level(s) ordered at this time: CONSIDER AT [facility]
- Follow Up
Pharmacy will continue to follow.
Vancomycin Follow UP
- -
Patient Age: 63
Patient Sex: Male
Vancomycin Day #: 3
Indication: Bacteremia
Requesting Provider: Burak
Pertinent Antimicrobial Allergies:
hydroxychloroquine, penicillins - hives
Height / Weight:
Height 5 ft 1.5 in
Actual Weight 107.7 kg
IBW in k kg
Adjusted BW in k.5 kg
Pertinent Past Medical History: BMI ~ 43
- Vital Signs / Lab Results
Temp Pulse Resp BP Pulse Ox
98.1 F 85 24 149/71 97
07/05/24 03:05 07/05/24 06:00 07/03/24 16:00 07/05/24 04:01 07/05/24 04:02
Lab Results - Hematology
07/02/24 07/03/24 07/04/24
11:50 02:50 04:17
WBC 22.4 H 17.6 H 16.9 H
Band Neutrophils 2
07/05/24
04:01
WBC 9.4
Band Neutrophils
Lab Results - Chemistry
07/02/24 07/03/24 07/04/24
11:50 02:50 04:17
BUN 21 H 25 H 31 H
Creatinine 1.7 H 1.3 H 1.1 H
Estimated Creat Clear 52 61
Albumin 3.7 3.0 L 3.0 L
07/05/24
04:01
BUN 24 H
Creatinine 0.9
Estimated Creat Clear 75
Albumin 3.5
07/02/24 07/02/24
13:40 20:37
Lactic Acid 2.1 H 1.0
Microbiology Results
07/02/24 17:08 Acid Fast Bacilli Smear - Preliminary
Pericardial Fluid Acid Fast Bacilli Culture - Preliminary
07/02/24 17:08 Fungal Smear - Final
Pericardial Fluid No yeast or fungal elements seen.
07/02/24 13:40 Blood Culture - Preliminary
Blood/Venous No Growth in 48 hours- Final report to follow
07/02/24 13:40 Blood Culture - Preliminary
Blood/Venous No Growth in 48 hours- Final report to follow
07/02/24 17:08 Body Fluid Culture - Preliminary
Pericardial Fluid No Growth After 18-24 Hours
Gram Stain - Preliminary
07/04/24 00:23 C. difficile GDH Antigen & Toxins - Final
Feces/Stool Negative for toxigenic C.difficile
- Final
Negative for Norovirus GI and GII.
07/02/24 20:37 MRSA Screen - Final
Nose Staph aureus MRSA
Therapeutic Drug Monitoring
Random Vancomycin 12.6 ug/ml 07/05/24 04:01
[2024-07-05 08:30] LABS: Glucose - Point of Care 84 mg/dl (70-99)
[2024-07-05] MEDS: NOVOLOG FLEXPEN-MODERATE RESISTANCE SC (08:32)
[2024-07-05] MEDS: TOPROL XL 25 MG PO (08:33)
[2024-07-05] MEDS: FOLVITE 1 MG PO (08:33)
[2024-07-05] MEDS: PROTONIX 40 MG PO (08:33)
[2024-07-05] MEDS: COLCHICINE 0.3 MG PO (08:33)
[2024-07-05 08:34] VITALS: BP 154/81
[2024-07-05] MEDS: VITAMIN B-12 2500 MCG PO (08:35)
[2024-07-05] MEDS: ZETIA 10 MG PO (08:35)
[2024-07-05] MEDS: VITAMIN D3 (cholecalciferol) 50 MCG PO (08:35)
[2024-07-05] MEDS: DELTASONE 10 MG PO (08:36)
--- NOTE | 2024-07-05 09:24 | W.PN.HOSP.TC ---
Addendum entered and electronically signed by Nitin Massey DO 07/05/24 10:35:
Off antibiotics. Discharge today. Outpatient follow-up.
Original Note:
Today's Communication/Plan
-
Continue current care
Assessment / Plan
Assessment / Plan
Gen-AAOx3, NAD, morbid obesity
HEENT-NC, AT, anicteric, clear oral mm
Neck-supple
CV-reg, no M, +S1/S2
Lungs-clear B/L
Abd-soft, NT, ND
Ext-no edema
Musculoskeletal-no cyanosis, clubbing
Skin-warm and dry, pericardial drain in place
Neuro-grossly non-focal
Psych-calm, cooperative
Cardiac tamponade -underwent successful pericardiocentesis 07/02, 600 cc straw-colored fluid removed. Drain removed. Repeat echocardiogram shows trivial fluid. Cytology negative. Fluid culture negative so far.
Unclear etiology for pericardial effusion. Differential diagnosis includes infection, malignancy, rheumatologic condition. Patient has no known history of malignancy. Sister has metastatic melanoma.
On empiric antibiotics per infectious disease.
Shock -suspect related to hypovolemia and tamponade physiology due to large pericardial effusion. Shock resolved.
Sepsis -present on admission. Unclear etiology. Vomiting and diarrhea prior to admission suggestive of acute gastroenteritis, symptoms resolved. Stool negative for norovirus and C. difficile. Stool culture pending. Stools are becoming less
watery.
Blood cultures negative so far. ID consulted. Leukocytosis improving. Afebrile this morning. Lactic acidosis resolved.
Procalcitonin is unreliable in the setting of TANGELA.
Acute normocytic anemia -suspect hemodilution due to IV fluid administration. Doubt bleeding. Doubt hemolysis. Hemoglobin stable. Platelet count normal. Elevated D-dimer noted but fibrinogen also elevated, acute phase reactant. LDH mildly
elevated. However low suspicion for DIC.
TANGELA -resolved.
Troponin elevation -suspect acute nonischemic myocardial injury, possibly due to shock, sepsis, pericardial tamponade. Troponin trending down. Doubt ACS.
Hyponatremia -resolved.
Chronic right iliopsoas fluid collection - on chronic suppressive antibiotics, cefadroxil. Unclear if fluid represents infection vs seroma. Doubt hematoma.
CAD/CABG - stable. Cardiology has requested that we hold antiplatelet therapy given pericardial drain.
DM2 with hyperglycemia - she is on Trulicity subQ every Sunday. Use SSI in the hospital. HgbA1c 5.5%. Glucose 141 this morning.
Essential HTN -blood pressure improved.
Hyperlipidemia -atorvastatin.
SLE/RA -on chronic prednisone. Give a brief trial of stress dose steroids, then resume chronic prednisone.
Morbid obesity due to excess calories
Full code
Anticipated Discharge: Within 24 hours
Subjective/Interval History
-
Date of Service: July 05, 2024
Patient seen and examined. No complaints.
Objective Data
-
Labs:
Laboratory Results
07/05/24
04:01
WBC 9.4
Hgb 10.1 L
Hct 33.5 L
Plt Count 267
Sodium 141
Potassium 4.3
Chloride 106
Carbon Dioxide 24
BUN 24 H
Creatinine 0.9
Glucose 88
Calcium 8.5
Total Bilirubin 0.5
AST 34
ALT 30
Alkaline Phosphatase 75
Vital Signs:
Vital Signs
Temp Pulse Resp BP Pulse Ox
98.1 F 73 24 149/71 97
07/05/24 03:05 07/05/24 08:33 07/03/24 16:00 07/05/24 04:01 07/05/24 04:02
I&O
07/04/24 07/05/24 07/06/24
06:59 06:59 06:59
Intake Total 2730 / 2730 420 / 420
Output Total 450 / 450 125 / 125
Balance 2280 / 2280 295 / 295
Review of Systems
-
History Source: Patient
All other systems: Reviewed and negative
[2024-07-05] MEDS: VANCOCIN 200 IV (10:07)
--- NOTE | 2024-07-05 10:20 | W.PN.ID1 ---
Date of Service
Date of Service: July 05, 2024
Today's Communication
Discontinue further vancomycin/ceftriaxone and placed back on suppressive antibiotics.
Assessment / Plan
Pericarditis/pericardial effusion
- S/P pericardiocentesis and drain placement
Immunosuppression - on MMF
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
follows with [facility] ID
TANGELA improving
Allergy to penicillin - hives
Recommendations:
pericardial drain removed 07/03
Pericardial fluid bacterial cultures negative to date. Fungal smear negative. AFB negative
Leukocytosis resolved. Patient remains afebrile.
Discontinue further vancomycin and ceftriaxone.
Restart suppressive antibiotics. Cefadroxil nonformulary so will place on Keflex for now. To resume cefadroxil upon discharge.
����������������������������������������������������������
Chief Complaint
-: Leukocytosis and Other (pericarditis)
Subjective / Review of Systems
Patient seen and examined. Overall feels well. Denies pain. Breathing is comfortable.
Review of Systems: No Fever and No Chills
Vital Signs / Physical Exam
Vital Signs
Vital Signs
Temp Pulse Resp BP Pulse Ox
98.6 F 68 16 149/71 98
07/05/24 09:21 07/05/24 09:21 07/05/24 09:21 07/05/24 04:01 07/05/24 09:21
Physical Exam
Constitutional: No Acute Distress, Comfortable and Obese
Eyes: Sclera Anicteric
Cardiovascular: Regular Rate and S1/S2; Negative S3/S4
Pulmonary: Clear, Symmetric and Non Labored; Negative Wheezes or Rales
Gastrointestinal: Soft, Non Tender, Non Distended and Normal Bowel Sounds
Skin: Warm and Dry; Negative Rash or Jaundice
Wound: Other (dressing from drain site clean, dry, intact)
Neurological: AO x 3
Psychological: Calm
Objective Data
Lab Data
Lab Results
07/05/24 04:01
07/05/24 04:01
PT 15.8 Sec (11.4-14.6) H 07/02/24 20:37
INR 1.21 07/02/24 20:37
APTT 36.8 Sec (23.4-35.0) H 07/02/24 20:37
Estimated Creat Clear 75 ml/min 07/05/24 04:01
Lactic Acid 1.0 mmol/L (0.7-2.0) 07/02/24 20:37
Total Bilirubin 0.5 mg/dl (0.2-1.3) 07/05/24 04:01
AST 34 U/L (14-36) 07/05/24 04:01
ALT 30 U/L (0-35) 07/05/24 04:01
Alkaline Phosphatase 75 U/L (38-126) 07/05/24 04:01
C-Reactive Protein > 270.00 mg/L (0.0-10.00) H 07/03/24 02:50
Most recent labs reviewed.
Micro Results:
07/02/24 17:08 Body Fluid Culture - Preliminary
Pericardial Fluid No Growth After 48 Hours
Gram Stain - Preliminary
07/02/24 17:08 Acid Fast Bacilli Smear - Preliminary
Pericardial Fluid Acid Fast Bacilli Culture - Preliminary
07/02/24 17:08 Fungal Smear - Final
Pericardial Fluid No yeast or fungal elements seen.
07/02/24 13:40 Blood Culture - Preliminary
Blood/Venous No Growth in 48 hours- Final report to follow
07/02/24 13:40 Blood Culture - Preliminary
Blood/Venous No Growth in 48 hours- Final report to follow
07/04/24 00:23 C. difficile GDH Antigen & Toxins - Final
Feces/Stool Negative for toxigenic C.difficile
- Final
Negative for Norovirus GI and GII.
07/02/24 20:37 MRSA Screen - Final
Nose Staph aureus MRSA
07/04/24 00:23 Salmonella/Shigella Culture - Pending
Feces/Stool Campylobacter Culture - Pending
Shiga Toxin Test - Pending
07/02/24 17:08 Fungal Culture - Pending
Pericardial Fluid
07/02/24 16:12 Influenza Types A & B (SASKIA) - Final
Nasal Swab Negative for Influenza A & B, NAAT
Negative results must be combined with clinical observations
and patient history.
Nucleic Acid Amplification test (NAAT)performed on the
[employer] platform.
Care Review
Plan reviewed with: Physician (Hospitalist)
--- NOTE | 2024-07-05 10:41 | W.DS.TRANS ---
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
-
Discharge Instructions:
Discharge Diagnosis/Procedures Large pericardial effusion, sepsis, acute kidney
injury, hyponatremia
Diet Diabetic, Carb Controlled
Activity As tolerated
Driving Restrictions As prior to admission
Bathing Restrictions None
Instructions:
Stand-Alone Forms:
Changes to Home Medications: Yes
Discharge Medications:
DC Medications w/original date entered in TE2
cholecalciferol (vitamin D3) 50 mcg (2,000 unit) tablet 2,000 unit PO DAILY Supplement 12/21/16
montelukast 10 mg tablet 10 mg PO QPM Allergies 02/02/21
pantoprazole 40 mg tablet,delayed release 40 mg PO DAILY #30 tabs 02/09/21
dulaglutide 0.75 mg/0.5 mL subcutaneous pen injector (Trulicity) 0.75 mg SC FR WEIGHT LOSS 08/06/23
ezetimibe 10 mg tablet (Zetia) 10 mg PO DAILY High Cholesterol 08/06/23
mycophenolate mofetil 500 mg tablet 1,000 mg PO BID Autoimmune Disorder 08/06/23
prednisone 10 mg tablet 10 mg PO DAILY INFLAMM 08/06/23
atorvastatin 80 mg tablet 80 mg PO QPM High Cholesterol 07/02/24
cefadroxil 500 mg capsule 500 mg PO BID Infection 07/02/24
coenzyme Q10 200 mg capsule 200 mg PO DAILY Supplement 07/02/24
cyanocobalamin (vitamin B-12) 2,500 mcg tablet 2,500 mcg PO DAILY Supplement 07/02/24
folic acid 1 mg tablet 1 mg PO DAILY Supplement 07/02/24
gabapentin 100 mg capsule 100 mg PO HS Pain 07/02/24
magnesium oxide 400 mg PO QPM Electrolyte Repletion 07/02/24
metoprolol succinate 25 mg tablet,extended release 24 hr 25 mg PO DAILY Heart Disease/Condition 07/02/24
therapeutic multivitamin 1 tab PO DAILY Supplement 07/02/24
aspirin 81 mg chewable tablet 81 mg PO DAILY Blood Clot Prevention/Tx 07/03/24
colchicine 0.6 mg tablet 0.3 mg (1/2 x 0.6 mg) PO BID #60 tabs 07/05/24
Home Medication Changes
Stop clopidogrel.
Pending Results: No
--- NOTE | 2024-07-05 11:18 | CM ---
CM following re: discharge planning.
Reviewed pt's chart, met with pt.
Discharge order noted. Pt is aware, expressed her agreement and she stated her son will transport home. IMM reviewed, placed on chart, pt has a copy.
D/C plan: home no needs. Son to transport.
[2024-07-05] MEDS: NOVOLOG FLEXPEN-MODERATE RESISTANCE 1 UNITS SC (12:23)
[2024-07-05 12:34] LABS: Glucose - Point of Care 158 mg/dl (70-99)
--- NOTE | 2024-07-05 14:05 | PTCARENOTE ---
Discharge instructions reviewed with patient with pts sister present. Questions answered. DR Cherry , notified, RX's not sent to pharmacy, and rectified this. INT x 3 removed, along with telemetry pack. Wheeled to car by staff.
== END 2024-07-05 14:07 | disposition home or self-care (01) | DRG 871 ==
LOC: ICU 17:20
PROVIDERS: Emergency Medicine; Internal Medicine Critical Care Medicine; Physician Assistant Medical; Student in an Organized Health Care Education/Training Program; ADMITTING PHYSICIAN Hospitalist; CONSULT PHYSICIAN Internal Medicine Cardiovascular Disease; EMERGENCY PHYSICIAN Emergency Medicine; FAMILY PHYSICIAN Internal Medicine Geriatric Medicine; OTHER PHYSICIAN Student in an Organized Health Care Education/Training Program
PROC: 0W9D30Z Drainage of Pericardial Cavity with Drainage Device, Percutaneous Approach (ICD-10-PCS; 2024-07-02)
PROC: 0WPDX0Z Removal of Drainage Device from Pericardial Cavity, External Approach (ICD-10-PCS; 2024-07-04)
DX: A41.9 Sepsis, unspecified organism (principal); R57.0 Cardiogenic shock; R65.21 Severe sepsis with septic shock; Z68.41 Body mass index [BMI] 40.0-44.9, adult; J90 Pleural effusion, not elsewhere classified; N17.9 Acute kidney failure, unspecified; I30.9 Acute pericarditis, unspecified; I31.4 Cardiac tamponade; I5A Non-ischemic myocardial injury (non-traumatic); D84.821 Immunodeficiency due to drugs; M00.9 Pyogenic arthritis, unspecified; E87.1 Hypo-osmolality and hyponatremia; E87.20 Acidosis, unspecified; J98.11 Atelectasis; R09.02 Hypoxemia; I10 Essential (primary) hypertension; I25.10 Atherosclerotic heart disease of native coronary artery without angina pectoris; J45.909 Unspecified asthma, uncomplicated; M06.9 Rheumatoid arthritis, unspecified; E11.65 Type 2 diabetes mellitus with hyperglycemia; E86.1 Hypovolemia; G47.33 Obstructive sleep apnea (adult) (pediatric); D64.9 Anemia, unspecified; E78.2 Mixed hyperlipidemia; N20.0 Calculus of kidney; M32.9 Systemic lupus erythematosus, unspecified; E66.813 Obesity, class 3; E66.01 Morbid (severe) obesity due to excess calories; Z96.643 Presence of artificial hip joint, bilateral; I25.2 Old myocardial infarction; Z87.442 Personal history of urinary calculi; Z87.01 Personal history of pneumonia (recurrent); Z11.52 Encounter for screening for COVID-19; Z95.1 Presence of aortocoronary bypass graft; Z95.5 Presence of coronary angioplasty implant and graft; Z88.5 Allergy status to narcotic agent; Z88.0 Allergy status to penicillin; Z88.8 Allergy status to other drugs, medicaments and biological substances; Z79.82 Long term (current) use of aspirin; Z79.624 Long term (current) use of inhibitors of nucleotide synthesis; Z79.02 Long term (current) use of antithrombotics/antiplatelets; Z86.718 Personal history of other venous thrombosis and embolism; Z80.8 Family history of malignant neoplasm of other organs or systems; T84.51XD Infection and inflammatory reaction due to internal right hip prosthesis, subsequent encounter; Z79.52 Long term (current) use of systemic steroids; Z79.2 Long term (current) use of antibiotics
CPT/HCPCS: 88305; 93308; 33010; 33016; 51701; 71046; 74177; 80053; 80202; 81003; 81015; 82248; 82945; 82962; 83010; 83036; 83605; 83615; 83690; 83735; 84100; 84145; 84157; 84484; 85014; 85018; 85025; 85027; 85045; 85379; 85384; 85610; 85730; 86140; 87015; 87040; 87045; 87046; 87070; 87077; 87102; 87116; 87147; 87205; 87206; 87324; 87427; 87449; 87502; 87798; 87811; 88112; 89051; 93005; 93306; 94640; 96374; 99285; C1769; C1894; Q9967

== ENCOUNTER → 2024-07-16 11:04 | Outpatient (REF) | payer MEDICARE, OTHER, SELFPAY | LOC: RCS 11:04 | PROVIDERS: ATTENDING PHYSICIAN Internal Medicine Cardiovascular Disease; FAMILY PHYSICIAN Nurse Practitioner Primary Care | DX: I31.39 Other pericardial effusion (noninflammatory) (principal) | CPT/HCPCS: 93306 ==

== ENCOUNTER 2024-07-31 18:53 | Inpatient (IN) | payer MEDICARE, OTHER, SELFPAY ==
[2024-07-31 12:13] VITALS: BP 101/47
[2024-07-31 12:51] LABS: % Basophils 0.4 % (0-2); % Eosinophils 0.1 % (0-6); % Immature Granulocytes 0.7 % (0-0.5); % Lymphocytes 13.1 % (20.5-51.1); % Neutrophils 74.7 % (42.2-75.2); Absolute Basophils 0.1 10^3/uL (0-0.2); Absolute Immature Granulocytes 0.1 10^3/uL (0-0.05); Absolute Lymphocytes 2.2 10^3/uL (1.2-3.4); Absolute Monocytes 1.9 10^3/uL (0.1-0.6); Absolute Neutrophils 12.6 10^3/uL (1.4-6.5); Hematocrit 37.1 % (37.0-47.0); Hemoglobin 11.6 g/dL (12.0-16.0); Mean Corp Hgb Conc. 31.3 g/dL (33.0-37.0); Mean Corpuscular Hgb 26.5 pg (27.0-31.0); Mean Corpuscular Volume 84.7 fL (81.0-99.0); Mean Platelet Volume 10.9 fL (7.4-10.4); Nucleated Red Blood Cells % 0 %; Platelet Count 220 10^3/uL (130-400); Red Blood Cell Count 4.38 10^6/uL (4.20-5.40); Red Cell Dist. Width 17.2 % (11.5-14.5); White Blood Cell Count 16.8 10^3/uL (4.8-10.8)
[2024-07-31 12:59] LABS: COVID-19 Antigen Negative (Negative)
[2024-07-31 13:47] LABS: Lactic Acid 2.4 mmol/L (0.7-2.0)
[2024-07-31] MEDS: TYLENOL 1000 MG PO (13:47)
--- NOTE | 2024-07-31 13:49 | ED.GENMED ---
History of Present Illness
General
Chief Complaint: Fatigue
Time Seen by Provider: 07/31/24 13:30
History of Present Illness
History of Present Illness:
63-year-old female presents emergency department for evaluation of 'not feeling well' beginning last night. She associates this with large volume of nonbloody diarrhea that seem to improve today. She reports shortness of breath 'rattling' in the
chest. States the symptoms are not similar to those that resulted in ICU admission 1 month ago at this hospital at which time source of sepsis was not known however she was noted to have moderate pericardial effusion and underwent
pericardiocentesis while admitted. She has immunosuppression due to lupus and is on suppression antibiotics daily. She denies any vomiting. Does have right upper abdominal pain however is noted to have a right iliopsoas mass/fluid collection
chronically.
Past History
Past History
ED Past Medical History: Asthma, CAD, HTN, Other (Lupus and rheumatoid arthritis, DVT) and Other (Kidney stones, prior history of pneumonia)
ED Past Surgical History: and Orthopedic (R hip replaced x 3 L hip replaced x 1)
Social History
Tobacco: Non-smoker
Alcohol: Occasional
Drug: None
Living: with family (lives with son)
Employment: Disabled
Family History
Family History: Other (n/c)
Review of Systems
Review of Systems
Allergies reviewed?: Yes
All Other Systems: ROS reviewed and negative except as documented in HPI and ROS
Phy Exam
Physical Exam
Physical Exam:
GEN: ill-appearing, tachypneic, diaphoretic
Eyes: PERRLA, EOMs intact, no scleral icterus
HENT: NCAT, oral mucosa dry
Lungs: CTAB, no wheezes, rales, rhonchi, normal chest wall excursion
Cardiac: Tachycardic, regular, no murmur
Abdomen: Obesity limits exam, soft with significant tenderness to the right upper quadrant and epigastrium
Neuro: AO x 3
MSK: No gross deformity or ecchymosis. No edema. No digital clubbing, extremity cap refill less than 2 seconds
Skin: No rashes, petechiae. Normal color, no pallor or jaundice.
Psych: Calm, cooperative, proper hygiene
Sepsis
Sepsis Screening
Sepsis Assessment: Severe Sepsis
Sepsis Screening: Lactate >2mmol/L
Sepsis Screen
Sepsis Screen: Severe Sepsis
Date: 07/31/24
Time: 20:49
Course
Orders/Labs/Results
Orders:
Orders
07/31/24 12:28
COVID-19 Antigen Urgent
Source: Nasal Swab
Complete Blood Count/With Diff Urgent
Comprehensive Metabolic Panel Urgent
Lactic Acid Urgent
Lipase Urgent
Blood Culture Urgent
RAHAT Source: Blood/Venous
Specimen Description:
Influenza A+B Rapid Molecular Urgent
RAHAT Source: Nasal Swab
Specimen Description:
07/31/24 13:38
0.9% Sodium Chloride 1000 ml [Nss] 1,000 ml IV BOLUS
CR Chest - 2 Views Urgent
Comment:
Reason For Exam: fever, SOB
07/31/24 13:40
CT Chest/abd/pel W Iv Cont Urgent
Comment:
Reason For Exam: sepsis
07/31/24 13:43
Acetaminophen [Tylenol] 1,000 mg PO NOW STA
07/31/24 13:44
Acetaminophen [Tylenol] 1,000 mg .ROUTE .STK-MED ONE
07/31/24 13:45
Diphenhydramine [Benadryl] 12.5 mg IV NOW STA
Hydrocortisone Sod Succinate [Solu-Cortef] 200 mg IV NOW STA
07/31/24 13:56
Blood Culture Urgent
RAHAT Source: Blood/Venous
Specimen Description:
07/31/24 15:23
Urinalysis Reflex To Culture Urgent
Date Specimen was Collected: 07/31/24
Time Specimen was Collected: 15:21
Urine Microscopic Reflex Cult Urgent
Urine Culture Urgent
RAHAT Source: U
Specimen Description:
Date Specimen was Collected: 07/31/24
Time Specimen was Collected: 15:21
07/31/24 17:03
Cefepime HCl [Maxipime] 2,000 mg IV NOW STA
07/31/24 17:59
CARDIOLOGY CONSULT Routine
Consulting Provider: Tresa Yap
Was physician already notified: Yes
Reason for consult: sepsis, pericardial effn
INFECTIOUS DISEASE CONSULT Routine
Consulting Provider: Zonia Sam
Was physician already notified: Yes
Reason for consult: sepsis, pericardial effn
07/31/24 18:00
Vancomycin [Vancocin] 2,000 mg 0.9% Sodium Chloride 500 ml [Nss] 500 ml IV NOW
07/31/24 18:15
0.9% Sodium Chloride 1000 ml [Nss] 1,000 ml IV 100 mls/hr
07/31/24 18:20
Admit/Transfer Patient As Directed
Co-Sign Provider:
Level of Care: Inpatient admission
Assign to:: IMU- Intermediate Care
Physician / Group: Hospitalist
Diagnosis: Sepsis
Reason for Hospitalization: Sepsis
Expected length of stay greater than two midnights?: Yes
ELOS- Estimated Length of Stay in days: 4
I certify the patient meets the requirements for IP care: Yes
PRN Pain Medication Management As Directed
May give lesser potent ordered pain med per pt: Yes
preference::
Protocol:: Medication orders for pain may be administered in a
manner that supports deferring to patient preference
when the pt is:
- Requesting an ordered lesser potent pain medication.
Least to most potent pain medications are defined
as: acetaminophen < NSAID < tramadol < opioids
(morphine, oxycodone, hydromorphone).
- Requesting a lesser dose of the same medication IF
ORDERED.
- Requesting a less intrusive route of administration
if both routes are prescribed by the provider (PO <
IV).
07/31/24 18:22
Code Status As Directed
Resuscitation Status: Full Code
07/31/24 18:36
Lactate Level [Lactic Acid] Routine
Comment: q4h
Abnormal Lab Results
07/31/24 07/31/24 07/31/24
12:28 15:23 18:36
WBC 16.8 H 10^3/uL
(4.8-10.8)
Hgb 11.6 L g/dL
(12.0-16.0)
MCH 26.5 L pg
(27.0-31.0)
MCHC 31.3 L g/dL
(33.0-37.0)
RDW 17.2 H %
(11.5-14.5)
MPV 10.9 H fL
(7.4-10.4)
Abs Immat Gran (auto) 0.1 H 10^3/uL
(0-0.05)
Absolute Neuts (auto) 12.6 H 10^3/uL
(1.4-6.5)
Absolute Monos (auto) 1.9 H 10^3/uL
(0.1-0.6)
Immature Gran % 0.7 H %
(0-0.5)
Lymphocytes % 13.1 L %
(20.5-51.1)
Monocytes % 11.0 H %
(1.7-9.3)
Sodium 134 L mmol/L
(135-145)
BUN 20 H mg/dl
(7-17)
Creatinine 1.6 H mg/dL
(0.6-1.0)
Glucose 161 H mg/dl
(70-99)
Lactic Acid 2.4 H mmol/L 2.2 H mmol/L
(0.7-2.0) (0.7-2.0)
Calcium 8.2 L mg/dl
(8.4-10.2)
Total Bilirubin 2.8 H mg/dl
(0.2-1.3)
Total Protein 5.8 L g/dl
(6.3-8.2)
Urine Bilirubin 1+ A
(Negative)
Leukocyte Esterase Rfl 2+ A
(Negative)
Urine WBC (Reflex) 60-70 A /HPF
(0-5)
Urine Bacteria (Reflex) Few A
(Negative)
Urine Albumin (Reflex) 1+ A
(Neg - Trace)
07/31/24 12:28
07/31/24 12:28
Vital Signs
Initial and Last Documented VS:
Initial Vital Signs
Temp Pulse Resp BP Pulse Ox
103.6 F H 115 20 101/47 97
07/31/24 12:13 07/31/24 12:13 07/31/24 12:13 07/31/24 12:13 07/31/24 12:13
Last Documented Vital Signs
Temp Pulse Resp BP Pulse Ox
97.9 F 90 18 122/74 96
07/31/24 18:21 07/31/24 18:42 07/31/24 17:45 07/31/24 18:42 07/31/24 17:30
MDM/Problems Addressed
MDM/Problems Addressed:
Unclear etiology to sepsis, certainly could be a viral syndrome. She has significant leukocytosis however appears to have some degree of chronic leukocytosis. There is bacteriuria that would suggest UTI thus we will treat with broad-spectrum IV
antibiotics. Her pericardial effusion seems to have again worsened despite negative echo on 8. She has no chest pain at this time to suggest pericarditis. Will admit to the hospitalist service for further management, IV fluids given due to
elevated lactic acid
*Critical Care Note
Total Time (30-74mins, 75-104mins- exclusive of procedures): Not Applicable
Update Note
Update Note:
1401: Bedside limited cardiac US performed by myself shows trace pericardial effusion
ED Attending Note
-
Portions of this chart may have been created with voice recognition software.� Occasional wrong word or��sound alike� substitutions may have occurred due to the inherent limitations of voice recognition software.
Discharge Plan
Departure
Patient Disposition: Admit
Date of Disposition: 07/31/24
Time of Disposition: 17:33
Admit to: IMU
Presentation/result/management discussed w/ accepting MD/DO: Hospitalist
Discharge Problem:
Severe sepsis, Pericardial effusion
Interventions
Interventions:
*Risk Screen - Suicide Last Done: 07/31/24 12:13
*General Assessment Last Done: 07/31/24 12:13
*Neglect/Abuse Screening Last Done: 07/31/24 13:40
ED- Fall Risk Assessment Last Done: 07/31/24 13:40
*ED COVID-19 Vaccine History Last Done: 07/31/24 12:13
[2024-07-31 13:50] LABS: ALT (SGPT) 17 U/L (0-35); AST (SGOT) 18 U/L (14-36); Albumin 3.6 g/dl (3.5-5.0); Alkaline Phosphatase 77 U/L (38-126); Blood Urea Nitrogen 20 mg/dl (7-17); Calcium 8.2 mg/dl (8.4-10.2); Carbon Dioxide 23 mmol/L (22-30); Chloride 98 mmol/L (98-107); Estimated Creatinine Clearance 42 ml/min; Glucose 161 mg/dl (70-99); Lipase 49 U/L (23-300); Potassium 4.1 mmol/L (3.5-5.1); Sodium 134 mmol/L (135-145); Total Bilirubin 2.8 mg/dl (0.2-1.3); Total Protein 5.8 g/dl (6.3-8.2); eGFR 36.47
[2024-07-31] MEDS: NSS 1000 IV ×2 (13:57→18:40)
[2024-07-31] MEDS: SOLU-CORTEF 200 MG IV (14:03)
[2024-07-31] MEDS: BENADRYL 12.5 MG IV (14:03)
[2024-07-31 14:05] VITALS: BP 122/60
[2024-07-31 16:02] LABS: Urine Albumin 1+ (Neg - Trace); Urine Bilirubin 1+ (Negative); Urine Character Slightly Cloudy (Clear); Urine Color Amber; Urine Glucose Negative (Negative); Urine Ketone Negative (Negative); Urine Leukocyte 2+ (Negative); Urine Nitrite Negative (Negative); Urine Occult Blood Negative (Negative); Urine Urobilinogen 1+ (Neg - 1+)
[2024-07-31 16:50] LABS: Urine Bacteria Few (Negative); Urine Red Blood Cell 0-2 /HPF (0-2); Urine Squamous Cell 16-20 /LPF (Few); Urine White Cell 60-70 /HPF (0-5)
--- NOTE | 2024-07-31 17:35 | HPS.HSE ---
Family Physician
-
Family Physician: Juliana Alonso
Chief Complaint
-
Fever
History of Present Illness
63-year-old female with fever since last night. She also had some diarrhea since yesterday. Denies any dysuria abdominal pain shortness of breath or chest pain. No sick contacts.
Medical History
Past Medical History
Past Medical History: Reports Other
Additional Past Medical History:
Migraines, atrial fibrillation, asthma, CHF, hyperlipidemia, valvular heart disease, chronic diarrhea, nephrolithiasis, degenerative joint disease, rheumatoid arthritis, diabetes, lupus, chronic anemia, sleep apnea-CPAP intolerant
Past Surgical History: Reports Other
Additional Past Surgical History:
Right total hip replacement, left total hip replacement, , CABG, cardiac stents
Social History
Tobacco: Non-smoker
Alcohol: None
Drug: None
Living: With Family
Employment: Not Employed
Family History
Family History: CAD (Maternal family) and Cancer (Sister has cancer-family does not know. Mother with history of uterine cancer)
Allergies / Home Medications
Allergies reflects when Allergies were last updated in [facility].
Home Medications with original date entered in [facility]
Allergy/Medication List:
Allergies
Allergy/AdvReac Type Severity Reaction Status Date / Time
codeine Allergy Hives Verified 07/31/24 12:17
etanercept [From Enbrel] Allergy Hives Verified 07/31/24 12:17
hydroxychloroquine Allergy Hives Verified 07/31/24 12:17
[From Plaquenil]
infliximab [From Remicade] Allergy heart Verified 07/31/24 12:17
stopped
metformin Allergy Nausea / Verified 07/31/24 12:17
Vomiting
oxycodone HCl Allergy seizures Verified 07/31/24 12:17
[From OxyContin]
Penicillins Allergy Hives Verified 07/31/24 12:17
'gold shots' Allergy Hives Uncoded 07/31/24 12:17
Home Medications
cholecalciferol (vitamin D3) 50 mcg (2,000 unit) tablet 2,000 unit PO DAILY Supplement 12/21/16
montelukast 10 mg tablet 10 mg PO QPM Allergies 02/02/21
dulaglutide 0.75 mg/0.5 mL subcutaneous pen injector (Trulicity) 0.75 mg SC FR WEIGHT LOSS 08/06/23
ezetimibe 10 mg tablet (Zetia) 10 mg PO DAILY High Cholesterol 08/06/23
mycophenolate mofetil 500 mg tablet 1,000 mg PO BID Autoimmune Disorder 08/06/23
prednisone 10 mg tablet 10 mg PO DAILY INFLAMM 08/06/23
atorvastatin 80 mg tablet 80 mg PO QPM High Cholesterol 07/02/24
cefadroxil 500 mg capsule 500 mg PO BID Infection 07/02/24
cyanocobalamin (vitamin B-12) 2,500 mcg tablet 2,500 mcg PO DAILY Supplement 07/02/24
folic acid 1 mg tablet 1 mg PO DAILY Supplement 07/02/24
magnesium oxide 400 mg PO QPM Electrolyte Repletion 07/02/24
metoprolol succinate 25 mg tablet,extended release 24 hr 25 mg PO DAILY Heart Disease/Condition 07/02/24
therapeutic multivitamin 1 tab PO DAILY Supplement 07/02/24
aspirin 81 mg chewable tablet 81 mg PO DAILY Blood Clot Prevention/Tx 07/03/24
colchicine 0.6 mg tablet 0.3 mg (1/2 x 0.6 mg) PO BID #60 tabs 07/05/24
pantoprazole 40 mg tablet,delayed release 40 mg PO DAILY #30 tabs 07/05/24
Review of Systems
-
A 12 point ROS was completed and negative except as noted: Yes
EENT: Denies Sore Throat or Mouth Pain
Cardiac: Denies Chest Pain or Palpitations
Abdomen/GI: Reports Diarrhea; Denies Abdominal Pain
: Denies Dysuria
Physical Exam
Vital Signs
Vital Signs
Temp Pulse Resp BP Pulse Ox
100.5 F H 98 23 122/60 93
07/31/24 14:45 07/31/24 16:50 07/31/24 16:00 07/31/24 14:05 07/31/24 16:00
Physical Exam
General: Conversant and Fever
Respiratory: Clear
Cardiac: S1/S2 and Regular Rhythm
GI: Soft, Non Tender and Normal Bowel Sounds
Musculoskeletal: Other (Mild pedal edema)
Neuro: Awake, Alert and No Motor Deficits
Laboratory Results
-
07/31/24 12:28
07/31/24 12:28
Laboratory Results
Lactic Acid 2.4 mmol/L (0.7-2.0) H 07/31/24 12:28
Total Bilirubin 2.8 mg/dl (0.2-1.3) H 07/31/24 12:28
AST 18 U/L (14-36) 07/31/24 12:28
ALT 17 U/L (0-35) 07/31/24 12:28
Alkaline Phosphatase 77 U/L (38-126) 07/31/24 12:28
Lipase 49 U/L (23-300) 07/31/24 12:28
Data Reviewed
-
CT Scan: Report Reviewed by me
Medical Tests (Nuc Med, Echo, EKG etc): Report Reviewed by me (Echo 07/16/2024-technically difficult study. LV small in size, mild concentric LVH. EF 65 to 70%. Mild MS. Mild MR. No pericardial or pleural effusion.)
Impression/Plan
-
IMPRESSION/PLAN:
CT C/A/P -moderate-sized complex pericardial effusion with mild pericardial thickening and hyperenhancement suggestive of acute pericarditis which has decreased since 07/02/2024. Small bilateral pleural effusions. Moderate right upper paratracheal
lymphadenopathy. Previous CABG. Severe calcification of eagle coronaries and thoracic aorta. Severe discogenic degenerative change T6-T7 with LR calcified disc herniation causing moderate spinal cord compression and central canal stenosis.
Large 15.1 cm mass in the right iliopsoas bursa and 4.6 cm mass lateral to the greater trochanter. Right total hip arthroplasty in place with osteophytes and right greater trochanter. 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
considered most likely. Hardware infection with adjacent abscess is an alternate diagnostic possibility.
Mild gallbladder distention. Moderate chronic bilateral renal disease. Nonobstructing right intrarenal calculi. 1 cm lesion in the medial segment of the left lobe of the liver appears unchanged and is suggestive of small hepatic tumor probably
benign mass likely malignant or metastasis. Severe calcific atherosclerotic plaque in the abdominal aorta. Uterine leiomyoma. Severe discogenic degenerative disease L5-S1
# Sepsis present on admission
Source is unclear? UTI ? Viral ? Pericardial source
COVID screen negative, influenza negative
Blood culture, urine culture
Continue cefepime and vancomycin
Infectious disease consultation
If blood pressure drops-needs stress dose steroids.
# Lactic acidosis-trend
# Acute kidney injury-hold colchicine. IV fluids. no obstruction on CT.
# Recurrent pericardial effusion
Recent pericardial effusion with tamponade with pericardiocentesis 07/03/2024-negative for malignant cells. 600 mL of straw-colored fluid removed
Cardiology evaluation
Recent echo from 07/16/2024-no effusion mentioned
Patient remains on colchicine as outpatient. Hold with renal failure
She was also placed on empiric antibiotics per infectious disease
# Anemia-Chronic disease
# Chronic right iliopsoas bursa fluid collection 15.1 cm, 4.6 cm mass lateral to the right greater trochanter-on chronic suppressive antibiotics cefadroxil unclear if the fluid represents infection versus seroma. Patient cannot get any surgery as
this would make her lose the function in her right leg. She has been on suppressive antibiotics for past 11 years. Follows up with infectious disease from [place]
# Coronary disease status post CABG-on aspirin, atorvastatin. Hold aspirin
# Diabetes
On Trulicity on Fridays
Accu-Cheks and sliding scale coverage
# Hyperlipidemia/atherosclerosis-continue atorvastatin, Zetia
# Lupus/Rheumatoid arthritis-on chronic prednisone, mycophenolate does milligrams p.o. twice daily as outpatient
Hold mycophenolate in setting of infection
# History of migraines
# Sleep apnea-CPAP intolerant
# Asthma H/O Intubation 2012
# Obesity with a BMI of 44
# Immunocompromised state
# Moderate right upper paratracheal lymphadenopathy. For several years
# History of MRSA sepsis
# Severe discogenic degenerative disease at T6/T7 with a large calcified disc herniation causing moderate spinal cord compression and central canal stenosis. Severe discogenic degenerative disease at L5/S1.
# She is a lifelong nonsmoker.
# Nephrolithiasis
# DVT prophylaxis-subcutaneous heparin
# Full code
D/W patient's mother and patient's son at bedside
Patient is really sick.
Time spent over 75 minutes
[2024-07-31] MEDS: MAXIPIME 2000 MG IV (17:47)
[2024-07-31] MEDS: VANCOCIN 540 MG IV (18:39)
[2024-07-31 18:42] VITALS: BP 122/74
[2024-07-31 19:01] LABS: Lactic Acid 2.2 mmol/L (0.7-2.0)
[2024-07-31 22:10] VITALS: BP 122/50
[2024-07-31] MEDS: TYLENOL 650 MG PO (22:20)
--- NOTE | 2024-07-31 22:39 | PHA.VAN.IN ---
Assessment
- Assessment
Renal Function: Appears elevated from baseline (07/05/24 BASELINE SCR: 0.9)
Concomitant Antimicrobials: CEFEPIME
- Previous Dosing Experience
Previous Regimen: 1GM IV Q12H
Date of Regimen: 07/04/24
Provided Trough of: UNKNOWN
Provided AUC of: UNKNOWN
Patient's SCR is: Elevated compared to previous dosing experience (07/04/24 SCR = 1.1)
Patient's weight is: Decreased compared to previous dosing experience (07/04/24 WT = 107.7 KG)
Plan
- Plan
Initial / Loading Dose: 2GM
Maintenance Regimen: DOSING BY RANDOM LEVELS
Monitoring: RANDOM VANCOMYCIN LEVEL 08/01/24 AM
Pharmacokinetics Vancomycin I
- -
Patient Age: 63
Patient Sex: Female
Vancomycin Day #: 1
Indication: Other (SEPSIS)
Requesting Provider: REDDY
Pertinent Antimicrobial Allergies:
Allergies
Penicillins Allergy (Verified 07/31/24 12:17)
Hives
Height / Weight:
Height 5 ft 1 in
Actual Weight 106.7 kg
- Vital Signs / Lab Results
Temp Pulse Resp BP Pulse Ox
97.9 F 84 18 122/50 96
07/31/24 18:21 07/31/24 22:15 07/31/24 17:45 07/31/24 22:10 07/31/24 17:30
Lab Results - Hematology
07/31/24
12:28
WBC 16.8 H
Lab Results - Chemistry
07/31/24
12:28
BUN 20 H
Creatinine 1.6 H
Estimated Creat Clear 42
Albumin 3.6
07/31/24 07/31/24
12:28 18:36
Lactic Acid 2.4 H 2.2 H
Lab Results - Urine
07/31/24
15:23
Urine Nitrite (Reflex) Negative
Leukocyte Esterase Rfl 2+ A
Urine WBC (Reflex) 60-70 A
Ur Squamous Epith Cells 16-20
Urine Bacteria (Reflex) Few A
Microbiology Results
07/31/24 12:28 Influenza Types A & B (SASKIA) - Final
Nasal Swab Negative for Influenza A & B, NAAT
Negative results must be combined with clinical observations
and patient history.
Nucleic Acid Amplification test (NAAT)performed on the
[employer] platform.
[2024-07-31 22:57] LABS: Troponin I 0.088 ng/ml
[2024-07-31 23:58] LABS: Glucose - Point of Care 204 mg/dl (70-99)
[2024-08-01] VITALS (9 sets, daily range): BP systolic 103–136; BP diastolic 34–119
[2024-08-01] MEDS: HEPARIN SC (00:22)
[2024-08-01] MEDS: TYLENOL PO ×7 (00:22→23:00)
[2024-08-01] MEDS: STERILE WATER FOR INJECTION 10 ML IV (05:59)
[2024-08-01] MEDS: MAXIPIME 1000 MG IV (05:59)
[2024-08-01 06:42] LABS: Blood Urea Nitrogen 28 mg/dl (7-17); Calcium 8.3 mg/dl (8.4-10.2); Carbon Dioxide 26 mmol/L (22-30); Chloride 104 mmol/L (98-107); Estimated Creatinine Clearance 55 ml/min; Glucose 106 mg/dl (70-99); Sodium 139 mmol/L (135-145)
[2024-08-01 06:44] LABS: % Basophils 0.3 % (0-2); % Eosinophils 0.1 % (0-6); % Immature Granulocytes 0.3 % (0-0.5); % Lymphocytes 6.9 % (20.5-51.1); % Monocytes 8.7 % (1.7-9.3); % Neutrophils 83.7 % (42.2-75.2); Absolute Immature Granulocytes 0.1 10^3/uL (0-0.05); Absolute Monocytes 1.3 10^3/uL (0.1-0.6); Absolute Neutrophils 12.3 10^3/uL (1.4-6.5); Hematocrit 31.5 % (37.0-47.0); Hemoglobin 10.1 g/dL (12.0-16.0); Mean Corp Hgb Conc. 32.1 g/dL (33.0-37.0); Mean Corpuscular Hgb 27.4 pg (27.0-31.0); Mean Corpuscular Volume 85.4 fL (81.0-99.0); Mean Platelet Volume 10.1 fL (7.4-10.4); Nucleated Red Blood Cells % 0 %; Platelet Count 170 10^3/uL (130-400); Red Blood Cell Count 3.69 10^6/uL (4.20-5.40); Red Cell Dist. Width 17.1 % (11.5-14.5); White Blood Cell Count 14.7 10^3/uL (4.8-10.8)
[2024-08-01 06:46] LABS: Vancomycin Random 6.6 ug/ml
[2024-08-01 07:13] LABS: TSH 1.24 uIU/ml (0.47-4.68)
--- NOTE | 2024-08-01 07:15 | CON.CAR ---
Addendum entered and electronically signed by Robi Pa MD 08/01/24 16:15:
I saw and examined the patient.
The Residential Support Specialist's note was reviewed and I agree with the note.
Comment: Briefly, 63-year-old woman past medical history of CABG, lupus on chronic immunosuppression and pericardial effusion requiring pericardiocentesis in June 2024 who presents with fever and is being treated with broad spectrum antibiotics
with concern for sepsis. On CT chest patient was noted to have pericardial effusion for which we have been consulted.
Transthoracic echocardiogram reviewed by me earlier today with predominantly anterior pericardial effusion which appears to contain fibrinous material
No evidence of tamponade based on the echo
Would resume colchicine and continue for total of 3 months
Hold off on NSAIDs as patient is chronically on steroids
Will need outpatient follow-up echo
Treatment of sepsis per primary team
Original Note:
Consultation
Consultation Request
Date/Time Consultation Requested: 07/31/2024, 1758
Date/Time Consultation Performed: 08/01/2024, 0715
Requesting Provider: Dr Evans
Performing Provider: KARMEN Blanchard for [facility]
Reason for Consultation: pericardial effusion, sepsis
Medical History
-
Chief Complaint: fever, diarrhea
History of Present Illness:
Patient is a pleasant 63-year-old female with a past medical history significant for CAD status post two-vessel CABG August 2023 at [facility], mild aortic stenosis, mixed hyperlipidemia, diabetes mellitus type 2, lupus on chronic
immunosuppressive therapy, morbid obesity, hypertension, obstructive sleep apnea, and most recently hospitalization at 07/02/2024 to 07/05/2024 (presenting symptoms fevers, chills, shortness of breath, nausea, vomiting, diarrhea) for pericardial
tamponade s/p pericardiocentesis on 07/02/2024 with drain placement. 600 mL of straw-colored fluid removed. Cytology was negative for malignant cells and cultures were negative. Hospitalization complicated by TANGELA and leukocytosis. Follow-up
echocardiogram 07/16/2024 showed no pericardial or pleural effusion, EF 65 to 70%. She was seen in our office by Dr. Cardenas 3 days ago and was stable, euvolemic on exam. She presented to the ED yesterday, 07/31/2024 with fevers, diarrhea, shortness of
breath. She denies chest pain, palpitations, lightheadedness, edema, PND, orthopnea. Prior to admission in June for pericardial effusion with tamponade physiology, patient had chest pressure on presentation. Currently no chest pain or
pressure. Currently denies shortness of breath.
ED eval: temp initially 103.6, WBC 14.7, hemoglobin 10.1, BUN/creatinine 28/1.2., TSH 1.24
Troponin 0.088-> 0.080
EKG: pending
Chest x-ray: Mild interstitial and alveolar cardiogenic pulmonary edema, small left pleural effusion, moderate mediastinal lipomatosis
Chest CT: Moderate size complex pericardial effusion suggesting acute pericarditis, decreased since 07/02/2024, moderate right upper paratracheal lymphadenopathy, calcification of coronary arteries and thoracic aorta, severe discogenic degenerative
disease T6/T7 with large calcified disc herniation causing moderate spinal cord compression and central canal stenosis, large 15.1 cm mass in right iliopsoas bursa and 4.6 cm mass lateral to right greater trochanter, chronic hardware failure with
adjacent inflammatory masses considered most likely, 1 cm lesion of left lobe of liver appears unchanged, suggestive of small hepatic tumor
Past Medical History
Past Medical History: Other (See HPI)
Past Surgical History: Other (Buttock abscess with reconstruction and wound debridement 2012, left hip replacement, x 1, white hip replacement revision x 3, cystic mask right hip, PCI and stent to left main/LAD/circumflex 02/2021, CABG x 2
(CUMMINGS-LAD, SVG-OM, 08/2023))
Social History
Tobacco: Non-Smoker
Alcohol: None
Drug: None
Living: With Family
Family History
Family History: Reviewed & Not Pertinent
Allergies / Home Medications
Allergy/AdvReac Type Severity Reaction Status Date / Time
codeine Allergy Hives Verified 07/31/24 12:17
etanercept [From Enbrel] Allergy Hives Verified 07/31/24 12:17
hydroxychloroquine Allergy Hives Verified 07/31/24 12:17
[From Plaquenil]
infliximab [From Remicade] Allergy heart Verified 07/31/24 12:17
stopped
metformin Allergy Nausea / Verified 07/31/24 12:17
Vomiting
oxycodone HCl Allergy seizures Verified 07/31/24 12:17
[From OxyContin]
Penicillins Allergy Hives Verified 07/31/24 12:17
'gold shots' Allergy Hives Uncoded 07/31/24 12:17
�Medication �Instructions �Recorded �Confirmed �Type
cholecalciferol (vitamin D3) 50 2,000 unit PO DAILY Supplement 12/21/16 07/31/24 History
mcg (2,000 unit) tablet
montelukast 10 mg tablet 10 mg PO QPM Allergies 02/02/21 07/31/24 History
dulaglutide 0.75 mg/0.5 mL 0.75 mg SC FR WEIGHT LOSS 08/06/23 07/31/24 History
subcutaneous pen injector
(Trulicity)
ezetimibe 10 mg tablet (Zetia) 10 mg PO DAILY High Cholesterol 08/06/23 07/31/24 History
mycophenolate mofetil 500 mg tablet 1,000 mg PO BID Autoimmune Disorder 08/06/23 07/31/24 History
prednisone 10 mg tablet 10 mg PO DAILY INFLAMM 08/06/23 07/31/24 History
atorvastatin 80 mg tablet 80 mg PO QPM High Cholesterol 07/02/24 07/31/24 History
cefadroxil 500 mg capsule 500 mg PO BID Infection 07/02/24 07/31/24 History
cyanocobalamin (vitamin B-12) 2,500 mcg PO DAILY Supplement 07/02/24 07/31/24 History
2,500 mcg tablet
folic acid 1 mg tablet 1 mg PO DAILY Supplement 07/02/24 07/31/24 History
magnesium oxide 400 mg PO QPM Electrolyte Repletion 07/02/24 07/31/24 History
metoprolol succinate 25 mg 25 mg PO DAILY Heart 07/02/24 07/31/24 History
tablet,extended release 24 hr Disease/Condition
therapeutic multivitamin 1 tab PO DAILY Supplement 07/02/24 07/31/24 History
aspirin 81 mg chewable tablet 81 mg PO DAILY Blood Clot 07/03/24 07/31/24 History
Prevention/Tx
colchicine 0.6 mg tablet 0.3 mg (1/2 x 0.6 mg) PO BID #60 07/05/24 07/31/24 Rx
tabs
pantoprazole 40 mg tablet,delayed 40 mg PO DAILY #30 tabs 07/05/24 07/31/24 Rx
release
Review of Systems
-
History Source: Patient
All other systems: Negative unless noted
Physical Exam
Vital Signs
Temp Pulse Resp BP Pulse Ox
98.0 F 85 18 136/119 96
08/01/24 01:23 08/01/24 01:14 07/31/24 17:45 08/01/24 01:19 07/31/24 17:30
Lab Results
08/01/24 05:58
08/01/24 05:58
Troponin I 0.080 ng/ml H* 08/01/24 03:30
GEN: No distress, awake, Ox3
HEENT: supple, anicteric, mmm, no JVD
LUNGS: CTA, no wheezes/rales
CV: Reg, S1/S2, no murmur, no rub
ABD: soft, BS+, NT/ND
EXT: No edema
NEURO: Gross non-focal
SKIN: No rash
Impression / Plan
-
Primary care: KARMEN Cho
Primary Cardiology: Malik Cardenas
.
Impression:
Recurrent pericardial effusion
fever
elevated troponin
h/o pericardial effusion, large, tamponade physiology, s/p pericardiocentesis and drain 07/02/2024
Leukocytosis
Sepsis, unclear etiology
TANGELA, , creat 1.6 07/31/2024 (baseline 0.9)
CAD status post PCI 2020, CABG 2023
Hypertension
Diabetes mellitus type 2
Mixed hyperlipidemia
SLE
ALFA
Obesity
Orthodoxy
TTE 01/04/2023: Normal LV size and function, EF 59%, mild LVH; mild MR, mild MAC, mild AAS, trace TR PASP 25 mmHg normal pericardium without effusion, fat pad present
ALETA 08/14/2023: Trace AR, moderate MR, mild TR, normal RV, normal LV preserved wall motion, EF 75%, no pericardial or pleural effusion
CT abdomen pelvis with contrast 07/02/2024: Moderate-sized pericardial effusion with associated pericardial enhancement mild thickening favor acute pericarditis; small left, trace right pleural effusion; heterogeneous collection internal
calcifications extending along the right iliopsoas measuring 7.4 x 6.8 x 12.3, nonobstructing renal calculus 8 mm on the right
TTE 07/02/2024: EF 65-70%, LVH, mild , mild TR PASP 50 mmHg, IVC dilated, large pericardial effusion around RA/RV with evidence of hemodynamic compromise
TTE 07/16/2024: EF 65 to 70%, mild mitral stenosis, mild MR, no pericardial or pleural effusion seen
Plan:
h/p pericardial effusion:
-Repeat echo this morning 08/01/2024 shows small to moderate pericardial effusion
-no chest pain,no rub
-BPs variable, no hypotension
-Resume colchicine when creatinine stabilized
-Previous workup of pericardial effusion with negative malignant cells and cultures. To follow-up with rheumatology
Elevated troponin-
-Check twelve-lead EKG
-trend troponin
-no chest pain
-assess wall motion on echo
Fever-
-Continue sepsis workup
-ID consulted
-care per primary team
TANGELA
-creat 1.6 on admission
-receiving IV fluids
-repeat creat today 08/01/2024 1.2
-resume colchicine
h/o CABG
-on ASA-but currently on hold due to concern for effusion
-on statin and Zetia
-cont beta mckayla
Patient is a pleasant 63-year-old female with a past medical history significant for CAD status post two-vessel CABG August 2023 at [facility], mild aortic stenosis, mixed hyperlipidemia, diabetes mellitus type 2, lupus on chronic
immunosuppressive therapy, morbid obesity, hypertension, obstructive sleep apnea, and most recently hospitalization at 07/02/2024 to 07/05/2024 (presenting symptoms fevers, chills, shortness of breath, nausea, vomiting, diarrhea) for pericardial
tamponade s/p pericardiocentesis on 07/02/2024 with drain placement. 600 mL of straw-colored fluid were removed. Cytology was negative for malignant cells and cultures were negative. Hospitalization complicated by TANGELA and leukocytosis. Follow-up
echocardiogram 07/16/2024 showed no pericardial or pleural effusion, EF 65 to 70%. She was seen in our office by Dr. Cardenas 3 days ago and was stable, euvolemic on exam. She presented to the ED yesterday, 07/31/2024 with fevers, diarrhea, shortness of
breath.
Possibly related to autoimmune disease, RA/lupus, is somewhat late for post-cardiotomy syndrome but conceivable, idiopathic also possible. Will add colchicine at low dose, will need to monitor CBC given mycophenolate.
[2024-08-01 07:32] LABS: Vitamin B12 927 pg/ml (239-931)
--- NOTE | 2024-08-01 08:21 | PHA.VAN.FU ---
Vancomycin Assessment / Plan
- Assessment
Renal Function: SCR Decreasing
WBC's are: Trending Down
Concomitant Antimicrobials: cefepime
- Assessment - Therapeutic Drug Monitoring
Random Level: 6.6 - drawn ~11.5H after 2g loading dose
- Dosing Plan
Dosing by Level: Re-dose today (Vanc 1250mg x1 now and at 1800)
Given low level within 12H of loading dose - will trial giving 2 doses today
Will keep dose by level for now as SCR remains elevated from baseline
- Monitoring Plan
Random Level: 08/02 0600
- Follow Up
Pharmacy will continue to follow.
Vancomycin Follow UP
- -
Patient Age: 63
Patient Sex: Female
Vancomycin Day #: 2
Indication: Other
Requesting Provider: Dr. Evans
Pertinent Antimicrobial Allergies:
Penicillins - Hives
Height / Weight:
Height 5 ft 1 in
Actual Weight 106.7 kg
Pertinent Past Medical History: DM
- Vital Signs / Lab Results
Temp Pulse Resp BP Pulse Ox
98.0 F 89 18 108/85 96
08/01/24 01:23 08/01/24 08:04 08/01/24 08:04 08/01/24 08:04 07/31/24 17:30
Lab Results - Hematology
07/31/24 08/01/24
12:28 05:58
WBC 16.8 H 14.7 H
Lab Results - Chemistry
07/31/24 08/01/24
12:28 05:58
BUN 20 H 28 H
Creatinine 1.6 H 1.2 H
Estimated Creat Clear 42 55
Albumin 3.6
07/31/24 07/31/24
12:28 18:36
Lactic Acid 2.4 H 2.2 H
Lab Results - Urine
07/31/24
15:23
Urine Nitrite (Reflex) Negative
Leukocyte Esterase Rfl 2+ A
Ur Squamous Epith Cells 16-20
Microbiology Results
07/31/24 12:28 Influenza Types A & B (SASKIA) - Final
Nasal Swab Negative for Influenza A & B, NAAT
Negative results must be combined with clinical observations
and patient history.
Nucleic Acid Amplification test (NAAT)performed on the
[employer] platform.
Therapeutic Drug Monitoring
Random Vancomycin 6.6 ug/ml 08/01/24 05:58
[2024-08-01] MEDS: VITAMIN B-12 2500 MCG PO (08:41)
[2024-08-01] MEDS: PROTONIX 40 MG PO (08:43)
[2024-08-01] MEDS: ZETIA 10 MG PO (08:43)
[2024-08-01] MEDS: VITAMIN D3 (cholecalciferol) 50 MCG PO (08:43)
[2024-08-01] MEDS: FOLVITE 1 MG PO (08:43)
[2024-08-01] MEDS: DELTASONE 10 MG PO (08:44)
[2024-08-01] MEDS: THERAGRAN 1 TABLET PO (08:44)
[2024-08-01] MEDS: HEPARIN 5000 UNITS SC ×3 (08:45→22:55)
[2024-08-01] MEDS: TOPROL XL 25 MG PO (08:46)
[2024-08-01] MEDS: VANCOCIN 275 MG IV ×2 (08:53→20:54)
[2024-08-01] MEDS: TYLENOL 650 MG PO (12:30)
[2024-08-01] MEDS: COLCHICINE 0.3 MG PO ×2 (13:05→20:14)
--- NOTE | 2024-08-01 13:47 | CON.ID ---
Addendum entered and electronically signed by Dee Dee Sumner MD 08/01/24 17:13:
Discussed case with Dr Tolbert, Dr Scherer, her ID doctor Dr Bauer at [facility] and Dr Evans. I am concerned that with the displacement of the femoral and iliac vessels that if they erode she could bleed out and pass away. I have discussed this
concern with the patient herself but at this time she is refusing transfer. Our local orthopedists do not feel that they would be able to offer her surgery and have suggested [facility] or [facility]. I will provide copies of the CT scans and my note to
Dr Bauer who she plans to call. I would continue the vancomycin at this time as the s lugdunensis may have acquired resistance. I would urge that if she considers leaving it be against medical advice or in transfer.
Original Note:
Consultation
-
Date/Time Consultation Requested: 07/31/24 17:59
Date/Time Consultation Performed: 08/01/24 13:50
Requesting Provider: Dr Evans
Performing Provider: Dr Sumner
Reason for Consultation: sepsis, pericardial effn
Chief Complaint / Past History
Chief Complaint
fever
History of Present Illness
Ms summers is a 63 year old female with history of CHF, valvular heart disease, RA/lupus on MMF 1000 mg PO BID and Pred 10 mg, Chronic Infection of Right prosthetic hip on suppression with cefadroxil, chronic diarrhea, class III obesity who presented
here 07/31 for fever which began the night before. The hip has been described to be chornically infected since around 2008, she has had 3 previous replacements and has a known mass with previous biopsy with bacteria at [facility] early 2019
which grew S Lugdunensis, She has been managed by Dr Jerad Summers ID there. She completed 6 weeks of IV antibiotics with cefazolin then was placed on suppressive cefadroxil which she reports she has been compliant with. She has now developed fevers
without an alternative source and has been noticing stable pain in the hip, she has lost 6 lbs intentionally since starting trulicity. Denies: headache, sinus tenderness, sore throat, cough, sputum production, nausea, vomiting, constipation,
dysuria, urgency, new rashes, new joint pains.
Recently she was hospitalized here 07/02-07/05 for fevers, chills, shortness of breath, nausea, vomiting, diarrhea and was found to have pericardial tamponade. She was NOT started on any additional empiric antibiotics prior to obtaining cultures.
She underwent pericardiocentesis on 07/02/2024 with drain placement with 600 mL of straw-colored fluid removed. Fluid wbc 11,000K, 95% granulocytes, glucose 112, protein 3.8, ldh 662, body fluid gram stain negative and aerobic culture negative at 5
days, fungal and afb cultures are in progress both no growth to date. Cytology was negative for malignant cells. Blood cultures x2 were also finalized negative. Hospitalization complicated by TANGELA and leukocytosis. Follow-up echocardiogram
07/16/2024 showed no pericardial or pleural effusion, EF 65 to 70%. She was seen outpatient by Dr. Cardenas (cardiology), 3 days ago, and was stable, euvolemic on exam. She presented to the ED 07/31/2024 with fevers, diarrhea, shortness of breath.
Denied: shortness of breath, chest pain, palpitations, lightheadedness, edema, PND, orthopnea.
Since arrival this visit febrile to 103.6 - not persistent, BP stable, normal HR in the 80s, wbc initially 16.8 now 14.7, hgb 10, plt 170, L shift not initially present but did occur today, na 139, cr initially 1.6 - baseline 0.9, cr today 1.2,
lactic acid initially 2.4 then 2.2, troponin 0.08, UA with pyuria 60-70 wbc/hpf, few bacteria, covid ag negative, 07/31 CT c/a/p moderate complex pericardial effusion and hyperenhancement suggesting pericarditis which has decreased since 07/02, large
right hip collection which has progressed in size, small bilateral pleural effusions, severe DJD with moderate spinal cord compression, echo today small/moderate effusion without hemodynamic compromise, blood cultures x2 no growth to date, urine
culture 80k mixed mariya, flu screen negative, currently on vancomycin and cefepime. ID is consulted for assistance with management
Past History
Additional Past Medical History:
Migraines, atrial fibrillation, asthma, CHF, hyperlipidemia, valvular heart disease, chronic diarrhea, nephrolithiasis, degenerative joint disease, rheumatoid arthritis, diabetes, lupus, chronic anemia, sleep apnea-CPAP intolerant
Additional Past Surgical History:
Right total hip replacement, left total hip replacement, , CABG, cardiac stents, I&D buttock absces
Allergy History:
codeine Allergy (Verified 07/31/24 12:17)
Hives
etanercept [From Enbrel] Allergy (Verified 07/31/24 12:17)
Hives
hydroxychloroquine [From Plaquenil] Allergy (Verified 07/31/24 12:17)
Hives
infliximab [From Remicade] Allergy (Verified 07/31/24 12:17)
heart stopped
metformin Allergy (Verified 07/31/24 12:17)
Nausea / Vomiting
oxycodone HCl [From OxyContin] Allergy (Verified 07/31/24 12:17)
seizures
Penicillins Allergy (Verified 07/31/24 12:17)
Hives
'gold shots' Allergy (Uncoded 07/31/24 12:17)
Hives
Medications Reviewed: Yes
Social History
Tobacco: Non-Smoker
Alcohol: None
Drug: None
Family History
Family History: Not Pertinent
Review of Systems
Review of Systems
General: Fever
All systems: All other systems were reviewed and were negative
Vital Signs
Temp Pulse Resp BP Pulse Ox
99.1 F 82 28 129/53 96
08/01/24 12:51 08/01/24 12:00 08/01/24 12:00 08/01/24 08:46 07/31/24 17:30
Physical Exam
Physical Exam
Constitutional: No Acute Distress and Obese
Cardiovascular: Regular Rate and S1/S2; Negative Murmur or Rub
Pulmonary: Clear and Symmetric; Negative Wheezes, Rales or Rhonchi
Gastrointestinal: Soft, Non Tender, Non Distended and Normal Bowel Sounds
Extremities: Other (tenderness over the R groin, no wamth or fluctuance)
Skin: Warm and Dry; Negative Rash or Jaundice
Neurological: Awake
Lab / Diagnostic Study Results
08/01/24 05:58
08/01/24 05:58
Abs Immat Gran (auto) 0.1 10^3/uL (0-0.05) H 08/01/24 05:58
Absolute Neuts (auto) 12.3 10^3/uL (1.4-6.5) H 08/01/24 05:58
Absolute Lymphs (auto) 1.0 10^3/uL (1.2-3.4) L 08/01/24 05:58
Absolute Monos (auto) 1.3 10^3/uL (0.1-0.6) H 08/01/24 05:58
Absolute Basos (auto) 0.0 10^3/uL (0-0.2) 08/01/24 05:58
Immature Gran % 0.3 % (0-0.5) 08/01/24 05:58
Neutrophils % 83.7 % (42.2-75.2) H 08/01/24 05:58
Lymphocytes % 6.9 % (20.5-51.1) L 08/01/24 05:58
Monocytes % 8.7 % (1.7-9.3) 08/01/24 05:58
Eosinophils % 0.1 % (0-6) 08/01/24 05:58
Basophils % 0.3 % (0-2) 08/01/24 05:58
Lactic Acid 2.2 mmol/L (0.7-2.0) H 07/31/24 18:36
Ur Squamous Epith Cells 16-20 /LPF (Few) 07/31/24 15:23
Microbiology Results
Micro:
07/31/24 12:28 Blood Culture - Preliminary
Blood/Venous No Growth in 24 hours- Final report to follow
07/31/24 15:23 Urine Culture - Final
Urine
08/01/24 03:30 Salmonella/Shigella Culture - Pending
Feces/Stool Campylobacter Culture - Pending
Shiga Toxin Test - Pending
07/31/24 13:56 Blood Culture - Pending
Blood/Venous
07/31/24 12:28 Influenza Types A & B (SASKIA) - Final
Nasal Swab Negative for Influenza A & B, NAAT
Negative results must be combined with clinical observations
and patient history.
Nucleic Acid Amplification test (NAAT)performed on the
[employer] platform.
Assessment / Plan
Fever
Recent episode of pericarditis
RA/Lupus on Immunosuppression
TANGELA improving
Chronic Diarrhea
Class III obesity
Allergy to penicillin - hives, previously tolerated ceftriaxone
Resolving Pericarditis
- smaller in size
- Autoimmune causes of pericarditis are rare but known etiologies; patient is immunosuppressed without recent flare. Cytology not consistent with malignancy. Follow up with rheumatology
- colchicine management per cardiology
- no indication to restart antibiotics directed at pericarditis at this time, cultures were obtained prior to starting antibiotics (beyond her chornic cefadroxil) and were ultimately negative
Fever
Chronic Infection of Right prosthetic hip on suppression with cefadroxil
- covid and influenza negative
- blood cultures x2 in progress
- urine culture contaminated
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
suppressive Cefadroxil; reviewed history of her case with Dr Summers at [facility] [phone], he agrees to accept her back under his care after her stay is completed
- ESR and CPR in the AM
- can continue vancomycin at this time, stopped cefepime
- hold CONTROLLED AREA CHECKER cefadroxil while on vancomycin
- requested records from [place]
- tiger text left for Dr Tolbert, orthopedics to discuss possible consult vs transfer.
Chronic Loose stool
- no liquid stool, only loose. no abdominal pain, blood in the stool or unintentional weight loss
- c difficile was sent and negative
- stool culture in progress
- as no chad diarrhea, would no pursue further at this time
[2024-08-01] MEDS: NSS 1000 IV (13:51)
--- NOTE | 2024-08-01 14:44 | EDRN ---
Call to lab to check status on troponin that was sent at 1415.
--- NOTE | 2024-08-01 14:46 | W.PN.HOSP.TC ---
Today's Communication/Plan
-
maintain on empiric abx
f/u culture data
resume colchicine
f/u renal function
Assessment / Plan
Assessment / Plan
CTA a/p
CHEST:
1. MODERATE-SIZED COMPLEX PERICARDIAL EFFUSION with mild pericardial thickening and hyperenhancement suggesting ACUTE PERICARDITIS which has decreased since 07/02/2024.
2. Small bilateral pleural effusions.
3. Moderate right upper paratracheal lymphadenopathy.
4. Previous CABG surgery.
5. Severe calcification in the [place]iatam coronary arteries and thoracic aorta.
6. Severe discogenic degenerative disease at T6/T7 with a large calcified disc herniation causing moderate spinal cord compression and central canal stenosis.
ABDOMEN and PELVIS:
1. Large 15.1 cm mass in the bursal fluid collection bursa and 4.6 cm mass lateral to the right greater trochanter. Right total hip arthroplasty in place with osteolysis of the right greater trochanter (Gruen zone 1). CHRONIC HARDWARE FAILURE with
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 Hardware infection with adjacent abscesses is an alternative diagnostic possibility if there are signs/symptoms of infection
in the right hip.
2. Mild gallbladder distention.
3. Moderate chronic bilateral renal disease.
4. Nonobstructing right intrarenal calculi.
5. 1.0 cm lesion in the medial segment of the left lobe of the liver which appears unchanged and is most suggestive of a small hepatic tumor (probably a benign primary tumor and less likely a malignant tumor or metastasis).
6. Severe calcific atherosclerotic plaque in the abdominal aorta.
7. Uterine leiomyoma.
8. Severe discogenic degenerative disease at L5/S1.

1. Sepsis - POA
Source is unclear
-CT abdomen pelvis report as above
-COVID/flu and UA is clear
-Blood culture pending
-Known pericardial effusion with pericardiocentesis last month ruled out any infectious pathology
-Currently on empiric antibiotics
-ID physician following and help appreciated
2. Recurrence pericardial effusion
-Patient underwent pericardiocentesis on 07/03/2024 -negative for malignant cells. 600 mL straw-colored fluid removed
-Repeat echocardiogram showing moderate effusion this admission. No tamponade physiology
-Cardiology following and help appreciated
-Colchicine was held, being resumed after improvement of renal function
3. Acute kidney injury
-Maintain on IV fluid
-Colchicine to be resumed, monitor renal function
4. Chronic right illio-psoas bursa fluid collection
Chronic right hip hardware failure
-See CT AP report as above
-Patient on chronic antibiotic suppressive therapy with cefadroxil for many years now
5. T6/T7 spinal canal stenosis
-Findings on CT T spine
-No symptoms of pain or lower extremity weakness
-Will need further MRI T-spine if any true signs of cord compression develops
6. Lupus/Rheumatoid arthritis
-on chronic prednisone, mycophenolate does milligrams p.o. twice daily as outpatient
-Hold mycophenolate in setting of infection
Anemia of chronic disease
Type 2 diabetes mellitus
Hyperlipidemia
History of sleep apnea -not tolerated CPAP
Asthma
History of MRSA sepsis
Degenerative joint disease of spine
History of nephrolithiasis
DVT prophylaxis -subcu heparin
Full code
Total time spent : 53 mins
I personally saw and examined the patient.
I have reviewed all diagnostic interpretations and treatment plans as written.
Time includes patient management by me, time spent at the patients bedside, time to review lab and imaging results, discussing patient care, documentation in the medical record, and time spent with the family or caregiver and discussing care plan
with RN/Consultants.
Anticipated Discharge: > 48 hours
Subjective/Interval History
-
Date of Service: August 01, 2024
Denies of any palpitations/chest discomfort/shortness of breath
No issues overnight
Objective Data
-
Labs:
Laboratory Results
08/01/24
05:58
WBC 14.7 H
Hgb 10.1 L
Hct 31.5 L
Plt Count 170 D
Sodium 139
Potassium 4.0
Chloride 104
Carbon Dioxide 26
BUN 28 H
Creatinine 1.2 H
Glucose 106 H
Calcium 8.3 L
Vital Signs:
Vital Signs
Temp Pulse Resp BP Pulse Ox
99.1 F 84 20 129/53 96
08/01/24 12:51 08/01/24 12:51 08/01/24 12:51 08/01/24 08:46 07/31/24 17:30
Review of Systems
-
Respiratory: Reports No Symptoms
Cardiac: Reports No Symptoms
Abdomen/GI: Reports No Symptoms
Physical Exam
-
General: Comfortable
HEENT: Negative Oxygen
Respiratory: Clear to Auscultation
Cardiac: Regular Rhythm and S1/S2; Negative Murmur or Rub
GI: Soft, Nontender and Nondistended
Musculoskeletal: No Edema
Neuro: Awake, Alert, Oriented, No Motor Deficits and Nonfocal/Grossly Intact
Psych: Calm
[2024-08-01 15:21] LABS: Troponin I 0.069 ng/ml
--- NOTE | 2024-08-01 17:38 | EDRN ---
Lengthy discussion with patient, mother and son about the reason for needing to be transferred/ have surgery. Patient spoke with Dr. Sumner. Patient informed that this is a life or situation. Patient is refusing to be transferred. Patient
requesting a second opinion and to talk to cardiology. Dr. Rosales made aware. This RN requested Dr. Rosales to bedside to reiterate information to patient.
[2024-08-01 18:24] LABS: Glucose - Point of Care 141 mg/dl (70-99)
[2024-08-01] MEDS: NSS IV (20:02)
[2024-08-01] MEDS: LIPITOR 80 MG PO (20:13)
[2024-08-01] MEDS: MAG-TAB SR 84 MG PO (20:13)
[2024-08-01] MEDS: SINGULAIR 10 MG PO (20:14)
--- NOTE | 2024-08-01 21:35 | PTCARENOTE ---
Rec'd pt as admit from ED. Pt AAOx3, pleasant. Ambulatory in room with assistance with monitoring equipment and IV. IVF maintained through R hand IV. Pt able to take PO meds whole with water without complication. Denies pain/complaints at this time.
Pt oriented to room and call robin hoffmann appropriately. VSS, lungs CTA. Assessment as documented. Care ongoing.
[2024-08-02 00:04] VITALS: BP 113/93
[2024-08-02] MEDS: NSS 1000 IV (00:05)
[2024-08-02 01:52] VITALS: BP 132/44
--- NOTE | 2024-08-02 02:13 | PTCARENOTE ---
Pt with episode of desat to 69% on RA while sleeping. 2L NC placed. Pt states she has been diagnosed with sleep apnea, but does not wear CPAP at home.
[2024-08-02 04:06] VITALS: BP 148/64
[2024-08-02] MEDS: TYLENOL 650 MG PO (04:09)
[2024-08-02 05:30] LABS: Hematocrit 29.1 % (37.0-47.0); Mean Corp Hgb Conc. 30.9 g/dL (33.0-37.0); Mean Corpuscular Hgb 26.7 pg (27.0-31.0); Mean Corpuscular Volume 86.4 fL (81.0-99.0); Mean Platelet Volume 10.3 fL (7.4-10.4); Platelet Count 186 10^3/uL (130-400); Red Blood Cell Count 3.37 10^6/uL (4.20-5.40); White Blood Cell Count 10.8 10^3/uL (4.8-10.8)
[2024-08-02 05:53] LABS: Blood Urea Nitrogen 24 mg/dl (7-17); Calcium 8.1 mg/dl (8.4-10.2); Carbon Dioxide 23 mmol/L (22-30); Chloride 108 mmol/L (98-107); Estimated Creatinine Clearance 74 ml/min; Glucose 94 mg/dl (70-99); Potassium 4.2 mmol/L (3.5-5.1); Sodium 140 mmol/L (135-145); eGFR > 60.00
[2024-08-02 06:51] LABS: Erythrocyte Sed Rate 8 mm/hour (0-20)
[2024-08-02 06:58] LABS: Glucose - Point of Care 103 mg/dl (70-99)
[2024-08-02 07:33] VITALS: BP 150/58
--- NOTE | 2024-08-02 08:27 | PHA.VAN.FU ---
Vancomycin Assessment / Plan
- Assessment
Renal Function: SCR Decreasing
WBC's are: Trending Down
In the past 24 hrs, patient has been: Afebrile
- Assessment - Therapeutic Drug Monitoring
Random Level: 6.6
- Dosing Plan
Adjust Regimen to: 1000MG Q12H
New Regimen Predicts: AUC (588), Peak (34.3), Trough (16.6)
- Monitoring Plan
No level(s) ordered at this time: CONSIDER FOR STEADY STATE
- Follow Up
Pharmacy will continue to follow.
Vancomycin Follow UP
- -
Patient Age: 63
Patient Sex: Female
Vancomycin Day #: 3
Indication: Other
Requesting Provider: Dr. Evans
Pertinent Antimicrobial Allergies:
Penicillins - Hives
Height / Weight:
Height 5 ft 1 in
Actual Weight 106.7 kg
Pertinent Past Medical History: DM
- Vital Signs / Lab Results
Temp Pulse Resp BP Pulse Ox
98.0 F 74 22 148/64 97
08/02/24 03:08 08/02/24 06:00 08/02/24 06:00 08/02/24 04:06 08/02/24 06:00
Lab Results - Hematology
07/31/24 08/01/24 08/02/24
12:28 05:58 05:01
WBC 16.8 H 14.7 H 10.8
Lab Results - Chemistry
07/31/24 08/01/24 08/02/24
12:28 05:58 05:01
BUN 20 H 28 H 24 H
Creatinine 1.6 H 1.2 H 0.9
Estimated Creat Clear 42 55 74
Albumin 3.6
07/31/24 07/31/24
12:28 18:36
Lactic Acid 2.4 H 2.2 H
Microbiology Results
07/31/24 13:56 Blood Culture - Preliminary
Blood/Venous No Growth in 24 hours- Final report to follow
07/31/24 12:28 Blood Culture - Preliminary
Blood/Venous No Growth in 24 hours- Final report to follow
07/31/24 15:23 Urine Culture - Final
Urine
07/31/24 12:28 Influenza Types A & B (SASKIA) - Final
Nasal Swab Negative for Influenza A & B, NAAT
Negative results must be combined with clinical observations
and patient history.
Nucleic Acid Amplification test (NAAT)performed on the
[employer] platform.
Therapeutic Drug Monitoring
Random Vancomycin 6.6 ug/ml 08/01/24 05:58
--- NOTE | 2024-08-02 08:38 | W.PN.CARDCBS ---
Today's Communication / Plan
-
Pericardial effusion:
-Repeat echo 08/01/2024 shows small to moderate pericardial effusion
-no chest pain,no rub
-BPs stable with no hypotension
-Cont colchicine. Cr stable.
-Previous workup of pericardial effusion with negative malignant cells and cultures. To follow-up with rheumatology
-Repeat echo as outpt in 1-2 weeks, if pt being discharged
Cont medical therapy of nonMI elevated troponin
-EKG stable
-troponin peaked and stable.
-no chest pain
-Normal wall motion on echo
Fever / Sepsis / abscess
-Continue infection tx
-ID input appreciated. Pt has been recommended surgery for increasing sized abscess
-Pt has been reluctant for transfer due to social issues
-care per primary team
TANGELA, improved
-creat 1.6 on admission now improved after IVF
-colchcine resumed
Hx CABG
-Resume ASA
-on statin and Zetia
-cont beta mckayla
She appears compensated for surgery and is at least moderate risk given emergent need but acceptable risk as she is compensated. I explained the gravity of her situation and need for surgery as noted by other consultants.
She is not interested in transfer and will do eval as outpt. She understands the risks of worsening clinical status and even
Reviewed with ID and primary service.
Impression / Plan
-
.
Primary care: KARMEN Cho
Primary Cardiology: Malik Cardenas DO
.
Impression:
Recurrent pericardial effusion, mild to moderate
Large chronic iliopsoas abscess
Fever /sepsis /Leukocytosis
NonMI elevated troponin peak 0.088
h/o pericardial effusion, large, tamponade physiology, s/p pericardiocentesis and drain 07/02/2024
TANGELA, , creat 1.6 07/31/2024 (baseline 0.9,) improved and back to baseline
CAD status post PCI 2020, CABG 2023 [facility]
Hypertension
Diabetes mellitus type 2
Mixed hyperlipidemia
SLE
ALFA
Obesity
Quaker
TTE 01/04/2023: Normal LV size and function, EF 59%, mild LVH; mild MR, mild MAC, mild AAS, trace TR PASP 25 mmHg normal pericardium without effusion, fat pad present
ALETA 08/14/2023: Trace AR, moderate MR, mild TR, normal RV, normal LV preserved wall motion, EF 75%, no pericardial or pleural effusion
CT abdomen pelvis with contrast 07/02/2024: Moderate-sized pericardial effusion with associated pericardial enhancement mild thickening favor acute pericarditis; small left, trace right pleural effusion; heterogeneous collection internal
calcifications extending along the right iliopsoas measuring 7.4 x 6.8 x 12.3, nonobstructing renal calculus 8 mm on the right
TTE 07/02/2024: EF 65-70%, LVH, mild , mild TR PASP 50 mmHg, IVC dilated, large pericardial effusion around RA/RV with evidence of hemodynamic compromise
TTE 07/16/2024: EF 65 to 70%, mild mitral stenosis, mild MR, no pericardial or pleural effusion seen
Plan:
Pericardial effusion:
-Repeat echo 08/01/2024 shows small to moderate pericardial effusion
-no chest pain,no rub
-BPs stable with no hypotension
-Cont colchicine. Cr stable.
-Previous workup of pericardial effusion with negative malignant cells and cultures. To follow-up with rheumatology
-Repeat echo as outpt in 1-2 weeks, if pt being discharged
Cont medical therapy of nonMI elevated troponin
-EKG stable
-troponin peaked and stable.
-no chest pain
-Normal wall motion on echo
Fever / Sepsis / abscess
-Continue infection tx
-ID input appreciated. Pt has been recommended surgery for increasing sized abscess
-Pt has been reluctant for transfer due to social issues
-care per primary team
TANGELA, improved
-creat 1.6 on admission now improved after IVF
-colchcine resumed
Hx CABG
-Resume ASA
-on statin and Zetia
-cont beta mckayla
She appears compensated for surgery and is at least moderate risk given emergent need but acceptable risk as she is compensated. I explained the gravity of her situation and need for surgery as noted by other consultants.
She is not interested in transfer and will do eval as outpt. She understands the risks of worsening clinical status and even
Reviewed with ID and primary service.
Patient is a pleasant 63-year-old female with a past medical history significant for CAD status post two-vessel CABG August 2023 at [facility], mild aortic stenosis, mixed hyperlipidemia, diabetes mellitus type 2, lupus on chronic
immunosuppressive therapy, morbid obesity, hypertension, obstructive sleep apnea, and most recently hospitalization at 07/02/2024 to 07/05/2024 (presenting symptoms fevers, chills, shortness of breath, nausea, vomiting, diarrhea) for pericardial
tamponade s/p pericardiocentesis on 07/02/2024 with drain placement. 600 mL of straw-colored fluid were removed. Cytology was negative for malignant cells and cultures were negative. Hospitalization complicated by TANGELA and leukocytosis. Follow-up
echocardiogram 07/16/2024 showed no pericardial or pleural effusion, EF 65 to 70%. She was seen in our office by Dr. Cardenas 3 days ago and was stable, euvolemic on exam. She presented to the ED yesterday, 07/31/2024 with fevers, diarrhea, shortness of
breath.
Possibly related to autoimmune disease, RA/lupus, is somewhat late for post-cardiotomy syndrome but conceivable, idiopathic also possible. Will add colchicine at low dose, will need to monitor CBC given mycophenolate.
Progress Note - Outside Laborer
Subjective
Date of Service: August 02, 2024
Pt seen and examined. No complaints. No chest pain or shortness of breath.
Objective
Labs:
08/02/24 05:01
08/02/24 05:01
Labs
Hgb 9.0 g/dL (12.0-16.0) L 08/02/24 05:01
Hct 29.1 % (37.0-47.0) L 08/02/24 05:01
Plt Count 186 10^3/uL (130-400) 08/02/24 05:01
Sodium 140 mmol/L (135-145) 08/02/24 05:01
Potassium 4.2 mmol/L (3.5-5.1) 08/02/24 05:01
BUN 24 mg/dl (7-17) H 08/02/24 05:01
Creatinine 0.9 mg/dL (0.6-1.0) 08/02/24 05:01
Glucose 94 mg/dl (70-99) 08/02/24 05:01
Troponins
07/31/24 08/01/24 08/01/24
22:23 03:30 14:18
Troponin I 0.088 H* 0.080 H* 0.069 H*
Vital Signs and I&O:
Vital Signs
Temp Pulse Resp BP Pulse Ox
98.0 F 74 22 148/64 97
08/02/24 03:08 08/02/24 06:00 08/02/24 06:00 08/02/24 04:06 08/02/24 06:00
Vital Signs
Temp Pulse Resp BP Pulse Ox
98.0 F 74 22 148/64 97
08/02/24 03:08 08/02/24 06:00 08/02/24 06:00 08/02/24 04:06 08/02/24 06:00
Physical Exam
Physical Exam
General: No acute distress, AAOX3
Neck: Negative JVD
Heart: Regular, Negative S3 positive S1/S2, Negative S4, No murmur
Lungs: CTA b/l, negative wheezes/rales/rhonchi
Abd: Positive BS, NT/ND, neg rebound/rigidity/guarding
Ext: Negative cyanosis/clubbing/edema
Neuro: nonfocal
[2024-08-02] MEDS: VANCOCIN 200 IV (09:17)
[2024-08-02] MEDS: PROTONIX 40 MG PO (09:18)
[2024-08-02] MEDS: COLCHICINE 0.3 MG PO (09:18)
[2024-08-02] MEDS: FOLVITE 1 MG PO (09:18)
[2024-08-02] MEDS: VITAMIN B-12 2500 MCG PO (09:18)
[2024-08-02] MEDS: ZETIA 10 MG PO (09:19)
[2024-08-02] MEDS: TOPROL XL 25 MG PO (09:19)
[2024-08-02] MEDS: THERAGRAN 1 TABLET PO (09:19)
[2024-08-02] MEDS: DELTASONE 10 MG PO (09:19)
[2024-08-02 09:22] VITALS: BP 129/46
[2024-08-02] MEDS: HEPARIN 5000 UNITS SC (09:24)
[2024-08-02] MEDS: TYLENOL PO ×2 (09:24→12:09)
[2024-08-02] MEDS: LOW STRENGTH ASPIRIN 81 MG PO (09:27)
[2024-08-02] MEDS: VITAMIN D3 (cholecalciferol) 50 MCG PO (09:27)
--- NOTE | 2024-08-02 09:47 | W.PN.HOSP.TC ---
Today's Communication/Plan
-
see note
pt/ot
potential discharge later today
Assessment / Plan
Assessment / Plan
CTA a/p
CHEST:
1. MODERATE-SIZED COMPLEX PERICARDIAL EFFUSION with mild pericardial thickening and hyperenhancement suggesting ACUTE PERICARDITIS which has decreased since 07/02/2024.
2. Small bilateral pleural effusions.
3. Moderate right upper paratracheal lymphadenopathy.
4. Previous CABG surgery.
5. Severe calcification in the [place] coronary arteries and thoracic aorta.
6. Severe discogenic degenerative disease at T6/T7 with a large calcified disc herniation causing moderate spinal cord compression and central canal stenosis.
ABDOMEN and PELVIS:
1. Large 15.1 cm mass in the bursal fluid collection bursa and 4.6 cm mass lateral to the right greater trochanter. Right total hip arthroplasty in place with osteolysis of the right greater trochanter (Gruen zone 1). CHRONIC HARDWARE FAILURE with
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 Hardware infection with adjacent abscesses is an alternative diagnostic possibility if there are signs/symptoms of infection
in the right hip.
2. Mild gallbladder distention.
3. Moderate chronic bilateral renal disease.
4. Nonobstructing right intrarenal calculi.
5. 1.0 cm lesion in the medial segment of the left lobe of the liver which appears unchanged and is most suggestive of a small hepatic tumor (probably a benign primary tumor and less likely a malignant tumor or metastasis).
6. Severe calcific atherosclerotic plaque in the abdominal aorta.
7. Uterine leiomyoma.
8. Severe discogenic degenerative disease at L5/S1.

1. Sepsis - POA
Chronic right illio-psoas bursa fluid collection
Chronic right hip hardware failure
-See CT AP report as above
-Patient on chronic antibiotic suppressive therapy with cefadroxil for many years now
-See detailed infection disease note.
-Patient has been managed with suppressive antibiotic therapy for over 10 years now. Last aspiration biopsy of the collection was growing Staphylococcus lugdunensis.
-Patient follows up with [place] [facility] [facility] Dr. Lopez. Dr. Sumner discussed her concern of increasing abscess size and potential iliac vasculature involvement with Dr. Lopez. Transferred to tertiary center is advised at this point as patient will
require advanced hip reconstructive surgery. Already doctor has discussed this with dosed on orthopedic group and patient has been deemed too complex to be taken care of [place]. This has been discussed at length with patient with family at
bedside due to complicated social situation patient is declining to be transferred to any hospital. Patient is also [employer] and would prefer to go to [email or web address] system if any eventually. I have discussed and clarified that patient at risk
of abscess eroding into iliac vasculature causing further bacteremia/sepsis/shock bleeding and . Patient and family have voiced understanding about all potential risk and remains adamant about not having any surgical procedure done at this
point.
Only thing patient is willing to accept is an outpatient follow-up with an orthopedic surgeon and ID doctor in office for now to discuss the issue and eventually get through surgery once her social condition allows.
I will personally try to call [email or web address] system and try to get patient contact details of orthopedic surgeon who can potentially help patient.
Difficult situation with patient expected to have life-threatening complication at some point in near future. This has been reiterated multiple times by me and ID doctor.
2. Recurrence pericardial effusion
-Patient underwent pericardiocentesis on 07/03/2024 -negative for malignant cells. 600 mL straw-colored fluid removed
-Repeat echocardiogram showing moderate effusion this admission. No tamponade physiology
-Colchicine was held, being resumed after improvement of renal function
-Discussed patient orthopedic issues with cardiology as well. They are planning to follow-up with patient in office to continue follow-up of pericardial effusion
3. Acute kidney injury -resolved
-Maintain on IV fluid
-Colchicine to be resumed, monitor renal function
5. T6/T7 spinal canal stenosis
-Findings on CT T spine
-No symptoms of pain or lower extremity weakness
-Will need further MRI T-spine if any true signs of cord compression develops
6. Lupus/Rheumatoid arthritis
-on chronic prednisone, mycophenolate does milligrams p.o. twice daily as outpatient
-Hold mycophenolate in setting of infection
Anemia of chronic disease
Type 2 diabetes mellitus
Hyperlipidemia
History of sleep apnea -not tolerated CPAP
Asthma
History of MRSA sepsis
Degenerative joint disease of spine
History of nephrolithiasis
DVT prophylaxis -subcu heparin
Full code
Case discussed with ID/cardiology
See discussion as above
Total time spent : 55 mins
I personally saw and examined the patient.
I have reviewed all diagnostic interpretations and treatment plans as written.
Time includes patient management by me, time spent at the patients bedside, time to review lab and imaging results, discussing patient care, documentation in the medical record, and time spent with the family or caregiver and discussing care plan
with RN/Consultants.
Anticipated Discharge: Within 24 hours
Subjective/Interval History
-
Date of Service: August 02, 2024
Patient afebrile overnight
Denies of having significant right hip pain
No chest discomfort/palpitation/shortness of breath
No other reported problem
Objective Data
-
Labs:
Laboratory Results
08/02/24
05:01
WBC 10.8
Hgb 9.0 L
Hct 29.1 L
Plt Count 186
Sodium 140
Potassium 4.2
Chloride 108 H
Carbon Dioxide 23
BUN 24 H
Creatinine 0.9
Glucose 94
Calcium 8.1 L
Vital Signs:
Vital Signs
Temp Pulse Resp BP Pulse Ox
98.1 F 85 22 139/46 97
08/02/24 07:30 08/02/24 09:19 08/02/24 06:00 08/02/24 09:19 08/02/24 06:00
Review of Systems
-
Respiratory: Reports No Symptoms
Cardiac: Reports No Symptoms
Abdomen/GI: Reports No Symptoms
Physical Exam
-
General: No Apparent Distress and Comfortable
HEENT: Negative Oxygen
Respiratory: Clear to Auscultation
Cardiac: Regular Rhythm and S1/S2; Negative Murmur or Rub
GI: Soft, Nontender, Nondistended and Normal Bowel Sounds
Musculoskeletal: No Edema
Neuro: Awake, Alert, Oriented, No Motor Deficits and Nonfocal/Grossly Intact
Psych: Calm
--- NOTE | 2024-08-02 09:51 | W.PN.ID1 ---
Date of Service
Date of Service: August 02, 2024
Today's Communication
See below.
Assessment / Plan
RA/Lupus on Immunosuppression
TANGELA improving
Chronic Diarrhea
Class III obesity
Allergy to penicillin - hives, previously tolerated ceftriaxone
#Fever -resolved
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
#Now with Large mass in right iliopsoas bursa lateral to the R greater trochanter which has grown at least 3 cm and is now compressing the adjacent iliac vessels - previously diagnosed as a chronic hardware infection, cultures with S lugdunensis and
on suppressive Cefadroxil; Dr. Sumner discussed history of her case with Dr Summers at [facility] [phone], he agrees to accept her back under his care after her stay is completed
- blood cultures x2 neg x 24hr
- Normal ESR = 8
-Elevated CPR = 171.5
-Currently on Vancomycin
- Dr. Sumner had discussed with ortho, hospitalist, and patient regarding transfer to tertiary center for surgical intervention. However, patient refused.
- I reiterated to patient regarding mass/abscess potentially further compression on artery resulting in critical limb ischemia and/or eroding into iliac artery which can be catastrophic. Patient understands risks. She explains that she is a Jehov[employer]
Witness and cannot receive whole blood products. She will pursue surgical opinion at [facility], where transfusion alternatives are offered. At this time, she needs to go home due social issues including spending time with very ill
family members. She accepts the risks mentioned above. She will follow-up with her ID physician Dr. Summers [facility].
- Add empiric doxycycline 100mg po bid to cefadroxil, in case S. lugdunensis has developed resistance to cefazolin. Her ID physician to review prior susceptibility data (which is not available to us) and make further recommendations/adjustments.
#Resolving Pericarditis
- recent pericarditis
- smaller in size
- Autoimmune causes of pericarditis are rare but known etiologies; patient is immunosuppressed without recent flare. Cytology not consistent with malignancy. Follow up with rheumatology
- colchicine management per cardiology
- no indication to restart antibiotics directed at pericarditis at this time, cultures were obtained prior to starting antibiotics (beyond her chornic cefadroxil) and were ultimately negative
Chronic Loose stool
- no liquid stool, only loose. no abdominal pain, blood in the stool or unintentional weight loss
- c difficile was sent and negative
- stool culture in progress
- as no chad diarrhea, would no pursue further at this time
Chief Complaint
-: Other (PJI)
Subjective / Review of Systems
Insists on going home.
Vital Signs / Physical Exam
Vital Signs
Vital Signs
Temp Pulse Resp BP Pulse Ox
98.1 F 85 22 139/46 97
08/02/24 07:30 08/02/24 09:19 08/02/24 06:00 08/02/24 09:19 08/02/24 06:00
Physical Exam
Constitutional: No Acute Distress and Obese
Cardiovascular: Regular Rate and S1/S2
Pulmonary: Rales (mild rales at bases)
Gastrointestinal: Soft, Non Tender and Non Distended
Neurological: AO x 3
Objective Data
Lab Data
Lab Results
08/02/24 05:01
08/02/24 05:01
ESR 8 mm/hour (0-20) 08/02/24 05:01
Estimated Creat Clear 74 ml/min 08/02/24 05:01
Lactic Acid 2.2 mmol/L (0.7-2.0) H 07/31/24 18:36
Total Bilirubin 2.8 mg/dl (0.2-1.3) H 07/31/24 12:28
AST 18 U/L (14-36) 07/31/24 12:28
ALT 17 U/L (0-35) 07/31/24 12:28
Alkaline Phosphatase 77 U/L (38-126) 07/31/24 12:28
C-Reactive Protein 171.50 mg/L (0.0-10.00) H 08/02/24 05:01
Most recent labs reviewed.
Micro Results:
07/31/24 13:56 Blood Culture - Preliminary
Blood/Venous No Growth in 24 hours- Final report to follow
07/31/24 12:28 Blood Culture - Preliminary
Blood/Venous No Growth in 24 hours- Final report to follow
07/31/24 15:23 Urine Culture - Final
Urine
08/01/24 03:30 Salmonella/Shigella Culture - Pending
Feces/Stool Campylobacter Culture - Pending
Shiga Toxin Test - Pending
07/31/24 12:28 Influenza Types A & B (SSAKIA) - Final
Nasal Swab Negative for Influenza A & B, NAAT
Negative results must be combined with clinical observations
and patient history.
Nucleic Acid Amplification test (NAAT)performed on the
[employer] platform.
07/31/24 CXR: Mild interstitial and alveolar cardiogenic pulmonary edema.
08/02/24 CT a/p: Large 15.1 cm mass in the right iliopsoas bursa and 4.6 cm mass lateral to the right greater trochanter. Right total hip arthroplasty in place with osteolysis of the right greater trochanter (Gruen zone 1). CHRONIC HARDWARE FAILURE
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 Hardware infection with adjacent abscesses is an alternative diagnostic possibility if there are signs/symptoms of
infection in the right hip.
Care Review
Plan reviewed with: Physician (Dr. Sebastian Rosales)
[2024-08-02 11:34] LABS: Glucose - Point of Care 136 mg/dl (70-99)
[2024-08-02 13:26] VITALS: BP 142/64
--- NOTE | 2024-08-02 14:15 | PTCARENOTE ---
Patient discharged to home. Discharge paper work reviewed and all questions answered. Patient left with all known belongings to home with family.
--- NOTE | 2024-08-02 14:24 | CM ---
Reviewed the chart notes. Patient discharged to home. Resides with son in a one story home. Patient uses a scooter. No needs.
--- NOTE | 2024-08-03 16:00 | W.DCSUMMARY ---
Discharge Summary
Discharge Data
Date of Admission: 07/31/24
Date of Discharge: 08/02/24
-
Pending Results: No
Hospital Course
Discharging Physician : Dr Mehdi Rosales
Disposition : To home
Primary care physician : Dr Juliana Alonso
Principal Discharge diagnosis :
Fever episode from iliopsoas abscess/prosthetic joint infection
Recurrent pericardial effusion
Acute kidney injury
Chronic Discharge diagnosis :
Thoracic 6/7 spinal canal stenosis
Lupus/rheumatoid arthritis
Anemia of chronic disease
Type 2 diabetes mellitus
Hyperlipidemia
History of sleep apnea
Asthma
Degenerative joint disease of spine
History of nephrolithiasis
Hospital Course :
Patient is a 63-year-old female with above-mentioned past medical history came to ER for having new onset of diarrhea/fever. Patient have recently been discharged from hospital after being diagnosed for pericardial effusion and required
pericardiocentesis.
During this visit patient was evaluated for possible source of her fever and initial septic workup was negative. 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 Patient has
history of chronic prosthetic joint infection and abscess in the area and has been followed by infectious disease Dr summers affiliated with [facility]. Patient have Staphylococcus lugdunensis growing on the aspiration in '. Imaging
findings were discussed with patient primary infection disease and was recommended to be addressed surgically at higher level center. Possible transfer plan at [place] versus [facility] was discussed with patient although
patient declined due to social reason. Despite concern for life-threatening sepsis/ iliac vasculature involvement/Bleed risk/, patient opted to go home with plan with follow-up with [place] orthopedic physician as patient is also Jehovah's
Witness and have undergone surgery at [facility]. Patient home mycophenolate was recommended to be held until seen by outpatient infectious disease doctor. Doxycycline has been added to regimen of chronic oral cefadroxil therapy.
Patient pericardial effusion was reimaged with echocardiogram and was noted to be moderate in nature. No tamponade physiology was noted. Cardiology was involved in care and recommended continual of medical therapy. Patient did have minimal renal
failure and colchicine therapy was held, after improvement of renal function patient was resumed back on colchicine. Cardiology is planning to continue follow-up in office post discharge.
Important imaging findings :
CT CHEST:
1. MODERATE-SIZED COMPLEX PERICARDIAL EFFUSION with mild pericardial thickening and hyperenhancement suggesting ACUTE PERICARDITIS which has decreased since 07/02/2024.
2. Small bilateral pleural effusions.
3. Moderate right upper paratracheal lymphadenopathy.
4. Previous CABG surgery.
5. Severe calcification in the [place] coronary arteries and thoracic aorta.
6. Severe discogenic degenerative disease at T6/T7 with a large calcified disc herniation causing moderate spinal cord compression and central canal stenosis.
CT ABDOMEN and PELVIS:
1. Large 15.1 cm mass in the bursal fluid collection bursa and 4.6 cm mass lateral to the right greater trochanter. Right total hip arthroplasty in place with osteolysis of the right greater trochanter (Gruen zone 1). CHRONIC HARDWARE FAILURE with
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 Hardware infection with adjacent abscesses is an alternative diagnostic possibility if there are signs/symptoms of infection
in the right hip.
2. Mild gallbladder distention.
3. Moderate chronic bilateral renal disease.
4. Nonobstructing right intrarenal calculi.
5. 1.0 cm lesion in the medial segment of the left lobe of the liver which appears unchanged and is most suggestive of a small hepatic tumor (probably a benign primary tumor and less likely a malignant tumor or metastasis).
6. Severe calcific atherosclerotic plaque in the abdominal aorta.
7. Uterine leiomyoma.
8. Severe discogenic degenerative disease at L5/S1.
Procedure findings :
None
Discharge Plan
-
Patient Disposition: Home (Routine Discharge)
Discharge Diagnosis/Procedures: Sepsis/Fever presumed from chronic illio-psoas abscess, Pericardial effusion
Condition: Fair
Diet: 2 Gram Sodium
Activity: As tolerated
Driving Restrictions: No driving
Bathing Restrictions: OK to Shower
Activity Restrictions/Additional Instructions:
Please follow-up with [place] orthopedic surgeon OR [facility] orthopedic group - [phone]
Referrals:
Juliana Alonso CRNP [Family Provider] - in one week
Jerad Summers MD [Non-Admitting Privileges] -
Prescriptions:
New
doxycycline hyclate 100 mg capsule
100 mg PO BID Qty: 60 0RF
Continued
cholecalciferol (vitamin D3) 2,000 UNITS tablet
2,000 unit PO DAILY
montelukast 10 MG tablet
10 mg PO QPM
ezetimibe [Zetia] 10 mg Tablet
10 mg PO DAILY
Trulicity 0.75 mg/0.5 mL Pen Injector
0.75 mg SC FR
prednisone 10 MG tablet
10 mg PO DAILY
atorvastatin 80 mg Tablet
80 mg PO QPM
therapeutic multivitamin Tablet
1 tab PO DAILY
cefadroxil 500 mg Capsule
500 mg PO BID
folic acid 1 mg Tablet
1 mg PO DAILY
metoprolol succinate 25 mg Tablet Extended Release 24 Hr
25 mg PO DAILY
cyanocobalamin (vitamin B-12) 2,500 mcg Tablet
2,500 mcg PO DAILY
magnesium oxide 400 mg magnesium Tablet
400 mg PO QPM
aspirin 81 MG tablet,chewable
81 mg PO DAILY
colchicine 0.6 mg Tablet
0.3 mg PO BID Qty: 60 0RF
pantoprazole 40 MG tablet,delayed release (/EC)
40 mg PO DAILY Qty: 30 0RF
Held
mycophenolate mofetil 500 mg Tablet
1,000 mg PO BID
Hold Instructions: Resume on 08/08/24. HOLD UNTIL CLEARED BY DR SUMMERS
Discharge Orders:
Discharge Patient (As Directed); Ordered 08/02/24
Ordered By: Mehdi Rosales
Discharge Date and Time
Discharge Date/Time: 08/02/24 14:16
Print Language: HUNGARIAN
== END 2024-08-02 14:16 | disposition home or self-care (01) | DRG 871 ==
LOC: IMU 18:53
PROVIDERS: Emergency Medicine; Physician Assistant; Student in an Organized Health Care Education/Training Program; ADMITTING PHYSICIAN Hospitalist; ATTENDING PHYSICIAN Hospitalist; CONSULT PHYSICIAN Internal Medicine Cardiovascular Disease; CONSULT PHYSICIAN Internal Medicine Infectious Disease; EMERGENCY PHYSICIAN Emergency Medicine; FAMILY PHYSICIAN Nurse Practitioner Primary Care
DX: A41.9 Sepsis, unspecified organism (principal); K68.12 Psoas muscle abscess; N17.9 Acute kidney failure, unspecified; E87.20 Acidosis, unspecified; Z68.41 Body mass index [BMI] 40.0-44.9, adult; D84.821 Immunodeficiency due to drugs; I30.9 Acute pericarditis, unspecified; T84.51XA Infection and inflammatory reaction due to internal right hip prosthesis, initial encounter; M06.9 Rheumatoid arthritis, unspecified; E11.9 Type 2 diabetes mellitus without complications; E78.2 Mixed hyperlipidemia; G47.33 Obstructive sleep apnea (adult) (pediatric); J45.909 Unspecified asthma, uncomplicated; E66.01 Morbid (severe) obesity due to excess calories; D63.8 Anemia in other chronic diseases classified elsewhere; D25.9 Leiomyoma of uterus, unspecified; Y83.1 Surgical operation with implant of artificial internal device as the cause of abnormal reaction of the patient, or of later complication, without mention of misadventure at the time of the procedure; Z95.1 Presence of aortocoronary bypass graft
CPT/HCPCS: 93308; 71046; 71260; 74177; 80048; 80053; 80202; 81003; 81015; 82607; 82962; 83605; 83690; 83735; 84443; 84484; 85025; 85027; 85652; 86140; 87040; 87045; 87046; 87077; 87086; 87427; 87502; 87811; 93005; 93321; 93325; 96361; 96374; 96375; 99285; Q9967

== ENCOUNTER → 2024-08-29 08:36 | Outpatient (REF) | payer MEDICARE, OTHER, SELFPAY ==
[2024-08-29 09:42] LABS: Blood Urea Nitrogen 15 mg/dl (7-17); Carbon Dioxide 26 mmol/L (22-30); Chloride 104 mmol/L (98-107); Glucose 145 mg/dl (70-99); Sodium 141 mmol/L (135-145); eGFR > 60.00
== END ==
LOC: RCS 08:36
PROVIDERS: ATTENDING PHYSICIAN Nuclear Medicine Nuclear Cardiology; FAMILY PHYSICIAN Nurse Practitioner Primary Care; OTHER PHYSICIAN Internal Medicine Infectious Disease
DX: I25.10 Atherosclerotic heart disease of native coronary artery without angina pectoris (principal); Z95.1 Presence of aortocoronary bypass graft; I31.39 Other pericardial effusion (noninflammatory); R50.9 Fever, unspecified; B95.8 Unspecified staphylococcus as the cause of diseases classified elsewhere
CPT/HCPCS: 93308; 36415; 80048

== ENCOUNTER → 2024-09-01 16:36 | Outpatient (REF) | payer MEDICARE, OTHER, SELFPAY | LOC: RAD 16:36 | PROVIDERS: ATTENDING PHYSICIAN Internal Medicine Infectious Disease; FAMILY PHYSICIAN Nurse Practitioner Primary Care | DX: T84.59XA Infection and inflammatory reaction due to other internal joint prosthesis, initial encounter (principal); B95.8 Unspecified staphylococcus as the cause of diseases classified elsewhere; Z96.649 Presence of unspecified artificial hip joint | CPT/HCPCS: 73701; Q9967 ==

== ENCOUNTER 2024-11-03 16:20 | Emergency (ER) | payer MEDICARE, OTHER, SELFPAY ==
[2024-11-03 16:25] VITALS: BP 135/55
[2024-11-03 16:55] LABS: % Basophils 0.4 % (0-2); % Immature Granulocytes 0.6 % (0-0.5); % Lymphocytes 5.3 % (20.5-51.1); % Monocytes 5.5 % (1.7-9.3); % Neutrophils 88.2 % (42.2-75.2); Absolute Lymphocytes 0.4 10^3/uL (1.2-3.4); Absolute Monocytes 0.4 10^3/uL (0.1-0.6); Absolute Neutrophils 6.3 10^3/uL (1.4-6.5); Hematocrit 27.1 % (37.0-47.0); Hemoglobin 8.5 g/dL (12.0-16.0); Mean Corp Hgb Conc. 31.4 g/dL (33.0-37.0); Mean Corpuscular Hgb 28.3 pg (27.0-31.0); Mean Corpuscular Volume 90.3 fL (81.0-99.0); Mean Platelet Volume 10.3 fL (7.4-10.4); Nucleated Red Blood Cells % 0.4 %; Platelet Count 142 10^3/uL (130-400); Red Cell Dist. Width 20.9 % (11.5-14.5); White Blood Cell Count 7.1 10^3/uL (4.8-10.8)
[2024-11-03 17:05] LABS: ALT (SGPT) 51 U/L (0-35); AST (SGOT) 43 U/L (14-36); Albumin 3.9 g/dl (3.5-5.0); Alkaline Phosphatase 60 U/L (38-126); Blood Urea Nitrogen 23 mg/dl (7-17); Carbon Dioxide 27 mmol/L (22-30); Chloride 104 mmol/L (98-107); Glucose 120 mg/dl (70-99); Potassium 4.9 mmol/L (3.5-5.1); Sodium 142 mmol/L (135-145); Total Bilirubin 1.8 mg/dl (0.2-1.3); Total Protein 5.8 g/dl (6.3-8.2); eGFR > 60.00
[2024-11-03 17:12] LABS: NT-proBNP 1200 pg/ml; Troponin I < 0.012 ng/ml
[2024-11-03 18:30] VITALS: BP 146/59
--- NOTE | 2024-11-03 19:57 | ED.GENMED ---
History of Present Illness
General
Chief Complaint: Breathing Problem
Source: patient
Exam Limitations: none
Time Seen by Provider: 11/03/24 19:44
Nursing documentation reviewed up to this point in time: agreed with
History of Present Illness
History of Present Illness:
Patient with history of asthma and congestive heart failure, presents to ED secondary to persistent cough, shortness of breath, decreased appetite over the past 3 days, after being exposed to spraying of some chemical outside of her house. Patient
has been using her nebulizer treatment at home without significant improvement symptoms. Patient was evaluated by her optimization analyst this afternoon and was referred to ED for evaluation/treatment, secondary to significant wheezing and respiratory
distress. Patient states that she has had number of similar symptoms in the past, secondary to asthma exacerbation
Past History
Past History
ED Past Medical History: Asthma, CAD, HTN, Other (Lupus and rheumatoid arthritis, DVT) and Other (Kidney stones, prior history of pneumonia)
ED Past Surgical History: and Orthopedic (R hip replaced x 3 L hip replaced x 1)
Social History
Tobacco: Non-smoker
Alcohol: Occasional
Drug: None
Living: with family (lives with son)
Employment: Disabled
Family History
Family History: Other (n/c)
Review of Systems
Review of Systems
Allergies reviewed?: Yes
All Other Systems: ROS reviewed and negative except as documented in HPI and ROS
Constitutional: Reports no symptoms; Denies fever or chills
Respiratory: Reports cough and trouble breathing
Cardiac: Reports no symptoms; Denies chest pain or palpitations
ABD/GI: Reports no symptoms; Denies vomiting or diarrhea
Musculoskeletal: Reports no symptoms
Skin: Reports no symptoms
Neurological: Reports no symptoms
Phy Exam
Physical Exam
Physical Exam:
Physical Exam
General: mild respiratory distress, not acutely ill. afebrile
Head: nc/at. eomi
Neck: supple. no meningeal signs.
Heart: s1/s2 regular rate and rhythm, no murmur.
Lungs: mild respiratory distress. expiratory wheezing noted bilaterally
Abdomen: normal bowel sounds. not tender.
Neuro: alert and oriented x 3. no focal neurological deficits
Skin: no rash
Psychiatric: well kept. interactive and cooperative
Extremities: no edema. no calf tenderness.
Scores
Heart Failure Risk
Heart Failure Risk Score: Not Applicable
Course
Orders/Labs/Results
Orders:
Orders
11/03/24 16:30
CR Chest - 2 Views Urgent
Comment:
Reason For Exam: respiratory distress
11/03/24 16:35
Complete Blood Count/With Diff Urgent
Comprehensive Metabolic Panel Urgent
NT-proBNP Urgent
Troponin I Urgent
11/03/24 19:52
Benzonatate [Tessalon Perles] 200 mg PO NOW STA
Ipratropium/Albuterol Sulfate [Duoneb] 3 ml INH R NOW STA
Prednisone [Deltasone] 50 mg PO NOW STA
11/03/24 19:53
Ipratropium/Albuterol Sulfate [Duoneb] 3 ml INH R NOW STA
Abnormal Lab Results
11/03/24
16:35
RBC 3.00 L 10^6/uL
(4.20-5.40)
Hgb 8.5 L g/dL
(12.0-16.0)
Hct 27.1 L %
(37.0-47.0)
MCHC 31.4 L g/dL
(33.0-37.0)
RDW 20.9 H %
(11.5-14.5)
Absolute Lymphs (auto) 0.4 L 10^3/uL
(1.2-3.4)
Immature Gran % 0.6 H %
(0-0.5)
Neutrophils % 88.2 H %
(42.2-75.2)
Lymphocytes % 5.3 L %
(20.5-51.1)
BUN 23 H mg/dl
(7-17)
Glucose 120 H mg/dl
(70-99)
Total Bilirubin 1.8 H mg/dl
(0.2-1.3)
AST 43 H U/L
(14-36)
ALT 51 H U/L
(0-35)
Total Protein 5.8 L g/dl
(6.3-8.2)
11/03/24 16:35
11/03/24 16:35
Vital Signs
Initial and Last Documented VS:
Initial Vital Signs
Temp Pulse Resp BP Pulse Ox
98.5 F 86 20 135/55 98
11/03/24 16:25 11/03/24 16:25 11/03/24 16:25 11/03/24 16:25 11/03/24 16:25
Last Documented Vital Signs
Temp Pulse Resp BP Pulse Ox
98.5 F 88 20 136/56 94
11/03/24 16:25 11/03/24 18:30 11/03/24 18:30 11/03/24 21:27 11/03/24 21:30
MDM/Problems Addressed
MDM/Problems Addressed:
History and exam consistent with likely an asthma exacerbation from environmental exposure. Doubt infectious etiology at this time. No evidence of gross volume overload. After treatment via prednisone/duoneb, patient reports improvement in symptoms.
Discussed treatment options, including admission to the hospital. At this time, however, patient would like to be discharged home. As such, patient will be started on short course of prednisone at higher dose (patient takes prednisone 10mg daily),
along with cough medication. Advised PCP f/u including potentially adding abx, if symptoms persist. However, with sig. worsening sob, advised return to ED immediately. Pt expresses understanding at time of discharge, to the care of her mother.
*Critical Care Note
Total Time (30-74mins, 75-104mins- exclusive of procedures): Not Applicable
ED Attending Note
-
Portions of this chart may have been created with voice recognition software.� Occasional wrong word or��sound alike� substitutions may have occurred due to the inherent limitations of voice recognition software.
Discharge Plan
Departure
Patient Disposition: Home (Routine Discharge)
Date of Disposition: 11/03/24
Time of Disposition: 21:15
Patient with high blood pressure during this ER visit?: Yes
Condition: Fair
Discharge Problem:
Asthma exacerbation
Instructions: Asthma, Adult (DC)
Prescriptions:
New
prednisone 50 mg Tablet
50 mg PO DAILY Qty: 2 0RF
benzonatate 100 mg capsule
100 mg PO TID PRN (Reason: cough) Qty: 14 0RF
albuterol sulfate [Ventolin HFA] 90 mcg/actuation HFA aerosol inhaler
2 puff inhalation Q6H PRN (Reason: shortness of breath or wheezing) Qty: 8.5 0RF
No Action
cholecalciferol (vitamin D3) 2,000 UNITS tablet
2,000 unit PO DAILY
montelukast 10 MG tablet
10 mg PO QPM
ezetimibe [Zetia] 10 mg Tablet
10 mg PO DAILY
mycophenolate mofetil 500 mg Tablet
1,000 mg PO BID
Trulicity 0.75 mg/0.5 mL Pen Injector
0.75 mg SC FR
prednisone 10 MG tablet
10 mg PO DAILY
atorvastatin 80 mg Tablet
80 mg PO QPM
therapeutic multivitamin Tablet
1 tab PO DAILY
cefadroxil 500 mg Capsule
500 mg PO BID
folic acid 1 mg Tablet
1 mg PO DAILY
metoprolol succinate 25 mg Tablet Extended Release 24 Hr
25 mg PO DAILY
cyanocobalamin (vitamin B-12) 2,500 mcg Tablet
2,500 mcg PO DAILY
magnesium oxide 400 mg magnesium Tablet
400 mg PO QPM
aspirin 81 MG tablet,chewable
81 mg PO DAILY
colchicine 0.6 mg Tablet
0.3 mg PO BID Qty: 60 0RF
pantoprazole 40 MG tablet,delayed release (DR/EC)
40 mg PO DAILY Qty: 30 0RF
doxycycline hyclate 100 mg capsule
100 mg PO BID Qty: 60 0RF
Referrals:
Juliana Alonso CRNP [Family Provider] -
Activity Restrictions/Additional Instructions:
As discussed, please follow up with your primary care physician for re-evaluation. Please consider return to ED with worsening symptoms. Your prescriptions have been sent electronically to [facility] pharmacy in [place].
Interventions
Interventions:
*Risk Screen - Suicide Last Done: 11/03/24 16:25
*General Assessment Last Done: 11/03/24 16:25
*Neglect/Abuse Screening Last Done: 11/03/24 16:25
*ED- Fall Risk Assessment Last Done: 11/03/24 20:30
*ED COVID-19 Vaccine History Last Done: 11/03/24 20:30
*Nursing Disposition Last Done: 11/03/24 21:34
ED- Cardiac Assessment Last Done: 11/03/24 20:30
ED- Pulmonary Assessment Last Done: 11/03/24 20:30
Discharge Date and Time
Discharge Date/Time: 11/03/24 21:40
Print Language: CYPRIOT
[2024-11-03] MEDS: DELTASONE 50 MG PO (20:26)
[2024-11-03] MEDS: TESSALON PERLES 200 MG PO (20:26)
[2024-11-03] MEDS: DUONEB 3 ML INH ×2 (20:26→20:29)
[2024-11-03 20:30] VITALS: BMI 41.7
[2024-11-03 21:27] VITALS: BP 136/56
== END 2024-11-03 21:40 | disposition home or self-care (01) ==
LOC: EMR 16:20
PROVIDERS: EMERGENCY PHYSICIAN Emergency Medicine; FAMILY PHYSICIAN Nurse Practitioner Primary Care; REFERRING PHYSICIAN Nuclear Medicine Nuclear Cardiology
DX: J45.901 Unspecified asthma with (acute) exacerbation (principal); I11.0 Hypertensive heart disease with heart failure; I50.9 Heart failure, unspecified; I25.10 Atherosclerotic heart disease of native coronary artery without angina pectoris; M06.9 Rheumatoid arthritis, unspecified; Z86.718 Personal history of other venous thrombosis and embolism; Z87.01 Personal history of pneumonia (recurrent)
CPT/HCPCS: 94640; 99284; 71046; 80053; 83880; 84484; 85025

== ENCOUNTER → 2025-02-25 14:08 | Outpatient (REF) | payer MEDICARE, OTHER, SELFPAY | LOC: RAD 14:08 | PROVIDERS: ATTENDING PHYSICIAN Nurse Practitioner Primary Care; REFERRING PHYSICIAN Anesthesiology Pain Medicine | DX: R22.41 Localized swelling, mass and lump, right lower limb (principal); R20.0 Anesthesia of skin; R20.2 Paresthesia of skin; T84.59XA Infection and inflammatory reaction due to other internal joint prosthesis, initial encounter; I73.9 Peripheral vascular disease, unspecified | CPT/HCPCS: 72110; 93922; 93925 ==

== ENCOUNTER → 2025-03-10 09:52 | Outpatient (REF) | payer MEDICARE, OTHER, SELFPAY | LOC: EMG 09:52 | PROVIDERS: ATTENDING PHYSICIAN Anesthesiology Pain Medicine; FAMILY PHYSICIAN Nurse Practitioner Primary Care | DX: R20.0 Anesthesia of skin (principal); R20.2 Paresthesia of skin; I73.9 Peripheral vascular disease, unspecified | CPT/HCPCS: 95907 ==

== ENCOUNTER → 2025-06-29 13:00 | Outpatient (REF) | payer MEDICARE, OTHER, SELFPAY | LOC: RAD 13:00 | PROVIDERS: ATTENDING PHYSICIAN Nurse Practitioner Primary Care | DX: I25.10 Atherosclerotic heart disease of native coronary artery without angina pectoris (principal); I73.9 Peripheral vascular disease, unspecified; I82.411 Acute embolism and thrombosis of right femoral vein | CPT/HCPCS: 93971 ==